=== PATIENT | male | born 1940 | race Caucasian/White ===

== ENCOUNTER 2016-11-27 15:44 | Outpatient (CLI) | payer MEDICARE, OTHER | END 2016-11-27 15:45 | disposition home or self-care (01) | LOC: LAB 15:44 | PROVIDERS: ATTEND Podiatrist | DX: L03.031 Cellulitis of right toe (principal) | CPT/HCPCS: 87070; 87205 ==

== ENCOUNTER 2017-04-30 14:01 | Emergency (ER) | payer MEDICARE, OTHER ==
[2017-04-30 14:51] VITALS: BP 144/86
[2017-04-30] MEDS ORDERED: HYDROcod/ACETAM 5/325 MG TABLET PO STA (15:26)
--- NOTE | 2017-04-30 15:27 | ED Physician Documentation ---
History of Present Illness - Stated complaint Stated Complaint: UNABLE TO WALK - Chief complaint Chief Complaint: General - History obtained from History obtained from: Patient, Family - History of Present Illness Timing: How many days ago (several) Pain level max: 8 Pain level now: 4 Improved by: rest Worsened by: walking - Additonal information Additional information: Patient is a 76-year-old male who has a history of a stroke as well as a chronic right lower extremity DVT. He is on Xarelto for this. Also has a Sofya filter in place. Over the past several days has developed worsening right lower extremity pain especially with walking. Pain is in the hip and the right thigh. No fall. Has not been taken anything for the pain. Review of Systems Ten Systems: 10 systems reviewed and negative Constitutional: denies: Fever, Chills Ears: denies: Ear pain Nose: denies: Rhinorrhea / runny nose, Congestion Throat: denies: Sore throat Cardiac: denies: Chest pain / pressure Respiratory: denies: Cough GI: denies: Abdominal Pain, Nausea, Vomiting, Diarrhea Skin: denies: Rash Musculoskeletal: denies: Neck pain, Back pain Neurologic: denies: Headache PD PAST MEDICAL HISTORY - Past Medical History Past Medical History: Yes Cardiovascular: Deep vein thrombosis Neuro: CVA, TIA Endocrine/Autoimmune: None : Incontinence Musculoskeletal: Hemiplegia Derm: None - Past Surgical History Past Surgical History: No - Present Medications Home Medications: Ambulatory Orders Medication Instructions Recorded Confirmed Aspirin [Negrita Chewable Aspirin] 81 mg PO DAILY 02/05/15 02/14/17 Atorvastatin [Lipitor] 20 mg PO DAILY 02/05/15 02/14/17 Docusate Sodium 100Mg Capsule 200 mg PO BID 02/05/15 02/14/17 [Colace] Omeprazole 20 mg PO DAILY 02/05/15 02/14/17 Polyethylene Glycol 3350 [Miralax] 1 packet PO Q2D 02/05/15 02/14/17 Senna [Senokot] 8.6 mg PO BID 02/05/15 02/14/17 Tamsulosin [Flomax] 0.4 mg PO DAILY 02/05/15 02/14/17 Metoprolol Tartrate 25 mg PO DAILY 03/10/15 02/14/17 levETIRAcetam [Levetiracetam] 1,000 mg PO BID 03/10/15 02/14/17 Rivaroxaban [Xarelto] 20 mg PO DAILY 11/03/15 02/14/17 Hydrocodone/Acetaminophen 1 - 2 each PO Q6H PRN #14 tablet 04/30/17 [Hydrocodon-Acetaminophen 5-325] - Allergies Allergies/Adverse Reactions: Allergies Allergy/AdvReac Type Severity Reaction Status Date / Time No Known Drug Allergies Allergy Verified 04/30/17 14:51 - Social History Does the pt smoke?: No Smoking Status: Never smoker Does the pt drink ETOH?: No Does the pt have substance abuse?: No PD ED PE NORMAL - Vitals Vital signs reviewed: Yes - General General: No acute distress, Other (alert) - HEENT HEENT: Moist mucous membranes - Neck Neck: Supple, no meningeal sign - Cardiac Cardiac: RRR, Strong equal pulses - Respiratory Respiratory: No respiratory distress, Clear bilaterally - Abdomen Abdomen: Soft, Non tender, Non distended - Back Back: No spinal TTP - Derm Derm: Warm and dry - Extremities Extremities: Other (R sided paralysis) - Neuro Neuro: Other (alert, word salad) - Psych Psych: Normal mood, Normal affect Results - Vitals Vitals: Vital Signs - 24 hr 04/30/17 04/30/17 14:47 17:44 Temperature 36.7 C Heart Rate 62 60 Respiratory 18 18 Rate Blood Pressure 144/86 H 144/86 H O2 Saturation 95 Oxygen O2 Source Room air - Labs Labs: Laboratory Tests 04/30/17 04/30/17 15:14 15:14 WBC 7.1 RBC 4.65 L Hgb 15.2 Hct 44.2 MCV 95.1 H MCH 32.7 H MCHC 34.4 RDW 13.2 Plt Count 202 MPV 9.5 Neut # 4.9 Lymph # 1.4 L [place] # 0.6 Eos # 0.1 Baso # 0.1 Absolute Nucleated RBC 0.00 Nucleated RBC % 0.0 Sodium 137 Potassium 4.2 Chloride 99 L Carbon Dioxide 24 Anion Gap 14.0 H BUN 12 Creatinine 0.7 Estimated GFR (MDRD) 110 Glucose 105 H Calcium 9.3 - Rads (name of study) RLE US Radiology: Prelim report reviewed, EMP read contemporaneously, See rad report ( Persistent nonocclusive thrombus, common femoral vein through popliteal vein, compatible with chronic deep venous thrombosis. ) PD MEDICAL DECISION MAKING - ED course Complexity details: reviewed results, re-evaluated patient, considered differential, d/w patient, d/w family ED course: Patient is a 76-year-old male who presents to the emergency department with right hip pain. Has a history of a chronic right DVT, no changes on ultrasound. Pain greatly improved with Vicodin here. Will place him a small amount of pain medication for home. Ambulating well. is comfortable taking him home. Patient and family counseled regarding signs and symptoms for which I believe and urgent re-evaluation would be necessary. Patient with good understanding of and agreement to plan and is comfortable going home at this time This document was made in part using voice recognition software. While efforts are made to proofread this document, sound alike and grammatical errors may occur. Departure - Departure Disposition: 01 Home, Self Care Clinical Impression: Hip pain, right Condition: Good Instructions: ED Strain Muscle Ext Follow-Up: Blair Hernandez MD [Primary Care Provider] - Within 1 week Prescriptions: Hydrocodone/Acetaminophen [Hydrocodon-Acetaminophen 5-325] 1 - 2 each PO Q6H PRN #14 tablet PRN Reason: pain Comments: Return if you worsen. This should improve over the next few days. Do not drink alcohol or drive while on narcotic pain medicine. Note that many narcotic pain relievers also contain tylenol/acetaminophen. Please ensure that your total dose of acetaminophen from all sources does not exceed 3 grams (3000mg) per day. You may constipated on this medication, take a stool softener such as "Colace" twice a day while you are on it. Also recommend a dlsz-kvv-yeuqofy laxative such as senna or MiraLAX any day that you do not have a bowel movement. If you received narcotic pain medication in the emergency department, do not drive or operate machinery for the next 24 hours. Discharge Date/Time: 04/30/17 17:45
[2017-04-30 15:36] LABS: BASOPHILS # (AUTO) 0.1 10^3/uL (0.0-0.1); BASOPHILS % (AUTO) 0.7 %; EOSINOPHILS # (AUTO) 0.1 10^3/uL (0.0-0.7); EOSINOPHILS % (AUTO) 1.3 %; HGB - HEMOGLOBIN 15.2 g/dL (14.0-18.0); LYMPHOCYTES # (AUTO) 1.4 10^3/uL (1.5-3.5); MEAN CORPUSCULAR HEMOGLOBIN 32.7 pg (27.0-31.0); MEAN CORPUSCULAR HGB CONC 34.4 g/dL (32.0-36.0); MEAN CORPUSCULAR VOLUME 95.1 fL (80.0-94.0); MEAN PLATELET VOLUME 9.5 fL (7.4-11.4); MONOCYTES # (AUTO) 0.6 10^3/uL (0.0-1.0); NEUTROPHILS # (AUTO) 4.9 10^3/uL (1.5-6.6); PLT - PLATELET COUNT 202 10^3/uL (130-450); RED BLOOD COUNT 4.65 10^6/uL (4.70-6.10); RED CELL DISTRIBUTION WIDTH 13.2 % (12.0-15.0); WHITE BLOOD COUNT 7.1 x10^3/uL (4.8-10.8)
[2017-04-30 15:38] LABS: CALCIUM 9.3 mg/dL (8.5-10.3); CREATININE 0.7 mg/dL (0.6-1.2)
--- NOTE | 2017-04-30 16:39 | Ultrasound Report ---
EXAM: RIGHT LOWER EXTREMITY VENOUS ULTRASOUND EXAM DATE: 04/30/2017 04:21 PM. CLINICAL HISTORY: Right lower extremity pain. History of chronic DVT. COMPARISON: 03/29/2017. TECHNIQUE: Real-time sonographic vascular imaging was performed by the car parker through the lower extremity utilizing both color-flow and Doppler spectral analysis. Multiple chemical sales representative static jemma ges were saved for review. FINDINGS: Common Femoral Vein (CFV): Nonocclusive thrombus. CFV-GSV Junction: Nonocclusive thrombus. Profunda Femoral Vein (PFV): Normal. Femoral Vein (FV) Prox: Nonocclusive thrombus. Femoral Vein (FV) Mid: Nonocclusive thrombus. Femoral Vein (FV) Dist: Nonocclusive thrombus. Popliteal Vein: Nonocclusive thrombus. Posterior Tibial Veins: Normal. Peroneal Veins: Nonvisualized. IMPRESSION: Persistent nonocclusive thrombus, common femoral vein through popliteal vein, compatible with chronic deep venous thrombosis. [facility] Referring Provider Line: [phone] SITE ID: [id number]
--- NOTE | 2017-04-30 16:39 | Ultrasound Preliminary Report ---
Exam: US DUPLEX EXT VEINS RIGHT IMPRESSION: Persistent nonocclusive thrombus, common femoral vein through popliteal vein, compatible with chronic deep venous thrombosis. [facility] SITE ID: [id number]
== END 2017-04-30 17:45 | disposition home or self-care (01) ==
LOC: ED 14:01
DX: M25.551 Pain in right hip (principal); M79.651 Pain in right thigh; I82.511 Chronic embolism and thrombosis of right femoral vein; I82.531 Chronic embolism and thrombosis of right popliteal vein; Z79.01 Long term (current) use of anticoagulants; I69.951 Hemiplegia and hemiparesis following unspecified cerebrovascular disease affecting right dominant side; Z79.82 Long term (current) use of aspirin
CPT/HCPCS: 36415; 80048; 85025; 93971; 99283; A9270

== ENCOUNTER 2017-08-17 10:46 | Outpatient (CLI) | payer MEDICARE, OTHER ==
[2017-08-17 11:08] LABS: BASOPHILS # (AUTO) 0.1 10^3/uL (0.0-0.1); EOSINOPHILS # (AUTO) 0.1 10^3/uL (0.0-0.7); EOSINOPHILS % (AUTO) 1.5 %; HGB - HEMOGLOBIN 14.5 g/dL (14.0-18.0); LYMPHOCYTES # (AUTO) 1.5 10^3/uL (1.5-3.5); LYMPHOCYTES % (AUTO) 25.3 %; MEAN CORPUSCULAR HEMOGLOBIN 32.4 pg (27.0-31.0); MEAN CORPUSCULAR HGB CONC 33.8 g/dL (32.0-36.0); MEAN CORPUSCULAR VOLUME 95.8 fL (80.0-94.0); MEAN PLATELET VOLUME 9.5 fL (7.4-11.4); MONOCYTES # (AUTO) 0.6 10^3/uL (0.0-1.0); MONOCYTES % (AUTO) 9.9 %; NEUTROPHILS # (AUTO) 3.6 10^3/uL (1.5-6.6); NEUTROPHILS % (AUTO) 62.3 %; PLT - PLATELET COUNT 187 10^3/uL (130-450); RED BLOOD COUNT 4.47 10^6/uL (4.70-6.10); RED CELL DISTRIBUTION WIDTH 13.8 % (12.0-15.0); WHITE BLOOD COUNT 5.8 x10^3/uL (4.8-10.8)
[2017-08-17 11:33] LABS: ALBUMIN 4.2 g/dL (3.2-5.5); ALBUMIN/GLOBULIN RATIO 1.4 (1.0-2.2); ALKALINE PHOSPHATASE 53 IU/L (42-121); ALT ALANINE AMINOTRANSFERASE 35 IU/L (10-60); AST ASPARTATE AMINOTRANSFERASE 26 IU/L (10-42); BILIRUBIN,TOTAL 0.5 mg/dL (0.2-1.0); BUN - BLOOD UREA NITROGEN 15 mg/dL (6-20); CARBON DIOXIDE - CO2 26 mmol/L (21-32); CHLORIDE 101 mmol/L (101-111); CHOL/HDL RATIO 2.9 (<5.0); CHOLESTEROL 169 mg/dL; CREATININE 0.7 mg/dL (0.6-1.2); GFR - MDRD 110 (>89); GLUCOSE 117 mg/dL (70-100); HDL CHOLESTEROL 58 mg/dL; LDL CHOLESTEROL,CALCULATED 92 mg/dL; LDL/HDL RATIO 1.6 (<3.6); SODIUM 136 mmol/L (135-145); TOTAL PROTEIN 7.3 g/dL (6.7-8.2); VLDL CHOLESTEROL 19 mg/dL
== END 2017-08-17 10:47 | disposition home or self-care (01) ==
LOC: LAB 10:46
PROVIDERS: ATTEND Internal Medicine
DX: I10 Essential (primary) hypertension (principal); E78.5 Hyperlipidemia, unspecified; G40.909 Epilepsy, unspecified, not intractable, without status epilepticus
CPT/HCPCS: 36415; 80053; 80061; 80177; 83721; 85025

== ENCOUNTER 2017-08-27 08:00 | Outpatient (CLI) | payer MEDICARE, OTHER | END 2017-08-27 08:01 | disposition home or self-care (01) | LOC: LAB.R 08:00 | PROVIDERS: ATTEND Podiatrist | DX: L03.031 Cellulitis of right toe (principal) | CPT/HCPCS: 87070; 87205 ==

== ENCOUNTER 2017-10-19 10:49 | Outpatient (CLI) | payer MEDICARE, OTHER ==
[2017-10-19] MEDS ORDERED: IOPAMIDOL-300 100 ML VIAL IVP ONE ×3 (10:50→13:13)
[2017-10-19 11:22] LABS: CREATININE 0.8 mg/dL (0.6-1.2)
[2017-10-19] MEDS ORDERED: IOPAMIDOL-300 100 ML VIAL ONE (12:57)
--- NOTE | 2017-10-21 13:43 | CT Report ---
Procedure Date: 10/19/2017 Accession Number: [id number] / [id number] Procedure: CT - Chest Angio (PE) CPT Code: FULL RESULT: EXAM: Chest Angio (PE) DATE: 10/19/2017 1:11 PM CLINICAL HISTORY: CHRONIC SOB COMPARISON: None. TECHNIQUE: Routine helical imaging was performed through the chest in the pulmonary arterial phase. IV Contrast: 80 mL Isovue 300 Reconstructions: Coronal and sagittal 3-D MIP reconstructions. Sagittal and coronal. In accordance with CT protocol optimization, one or more of the following dose reduction techniques were utilized for this exam: automated exposure control, adjustment of mA and/or KV based on patient size, or use of iterative reconstructive technique. FINDINGS: Pulmonary Arteries: Diagnostic quality: Adequate/suboptimal/nondiagnostic through the segmental arteries. No evidence for acute or chronic pulmonary emboli. RV/LV is within normal limits. There is no interventricular septal bowing. There is no reflux of contrast material in the IVC. Lungs/Pleura: Minimal atelectasis. No pulmonary nodule or mass lesion. No effusion or pneumothorax. Mediastinum: Normal. No cardiac enlargement or adenopathy. No aortic dissection or aneurysm. Thoracic Aorta: Unremarkable. Upper Abdomen: Incidental hepatic cyst. Normal adrenal glands. Other: None. IMPRESSION: No evidence of pulmonary embolus. Minimal atelectasis. [facility]
== END 2017-10-19 10:50 | disposition home or self-care (01) ==
LOC: LAB 10:49 → DI 10:50
PROVIDERS: ATTEND Internal Medicine
DX: R06.02 Shortness of breath (principal); J98.11 Atelectasis; I51.7 Cardiomegaly; I51.9 Heart disease, unspecified
CPT/HCPCS: 36415; 71275; 80048; 93306; Q9967

== ENCOUNTER 2017-10-19 11:20 | Outpatient (CLI) | payer MEDICARE, OTHER | END 2017-10-19 11:21 | disposition home or self-care (01) | LOC: DI 11:20 | PROVIDERS: ATTEND Internal Medicine Cardiovascular Disease | DX: R06.02 Shortness of breath (principal); I51.7 Cardiomegaly; I51.9 Heart disease, unspecified | CPT/HCPCS: 93306 ==

== ENCOUNTER 2020-09-15 17:36 | Outpatient (CLI) | payer MEDICARE, OTHER | END 2020-09-15 17:37 | disposition EMS.NT | LOC: EMS 17:36 | DX: I10 Essential (primary) hypertension (principal) ==

== ENCOUNTER 2021-07-12 10:44 | Outpatient (CLI) | payer MEDICARE, OTHER | END 2021-07-12 10:45 | disposition critical access hospital (66) | LOC: EMS 10:44 | DX: G89.29 Other chronic pain (principal) | CPT/HCPCS: A0425; A0429 ==

== ENCOUNTER 2021-07-12 11:07 | Emergency (ER) | payer MEDICARE, OTHER ==
--- NOTE | 2021-07-12 11:56 | ED Physician Documentation ---
PD HPI URI - Stated complaint Stated Complaint: BODY PX - Chief complaint Chief Complaint: General - History obtained from History obtained from: Patient, Family () - History of Present Illness Timing - onset: How many weeks ago (2) Timing duration: Weeks (2) Timing details: Gradual onset, Still present (The patient has had increasing muscle aches and weakness generally but affecting his good side on the left to the point where he is unable to lift himself or transfer as usual.) Associated symptoms: No: Fever, Chills, Dry cough, Chest pain, Dyspnea, NVD Contributing factors: No: Sick contact, Immunocompromised Similar symptoms before: Other (Patient with prior stroke with right-sided deficit years ago. He is typically able to transfer with some mild assistance from his . Unable to do so the last 1 to 2 weeks due to muscle aches and weakness.) Recently seen: Clinic (The patient was seen by his primary care with diet prescriptions sertraline 2 weeks ago for muscle spasms and pains. Had Tylenol with codeine added a couple of days ago without any improvement in aches. Weakness is worsening.) Review of Systems Constitutional: reports: Myalgias (for couple of weeks, worsening, generalized. ), Fatigue. denies: Fever, Chills Nose: denies: Rhinorrhea / runny nose, Congestion Throat: denies: Sore throat Respiratory: denies: Cough GI: denies: Nausea, Vomiting, Diarrhea, Bloody / black stool : denies: Dysuria Skin: denies: Lesions ( denies pressure sores) Musculoskeletal: denies: Neck pain, Back pain, Extremity swelling Neurologic: reports: Generalized weakness (new progressive left side weakness/muscle pains over past couple of weeks.), Focal weakness (right side s/p CVA years ago.). denies: Confused, Altered mental status, Headache Psychiatric: denies: Depressed Endocrine: denies: Weight loss Immunocompromised: denies: Immunocompromised PD PAST MEDICAL HISTORY - Past Medical History Cardiovascular: Deep vein thrombosis Neuro: CVA Endocrine/Autoimmune: None : Incontinence Musculoskeletal: Hemiplegia Derm: None - Past Surgical History Past Surgical History: No - Present Medications Home Medications: Ambulatory Orders Medication Instructions Recorded Confirmed Aspirin [Negrita Chewable Aspirin] 81 mg PO DAILY 02/05/15 07/12/21 Atorvastatin [Lipitor] 20 mg PO DAILY 02/05/15 07/12/21 Docusate Sodium 100Mg Capsule 200 mg PO BID PRN 02/05/15 07/12/21 [Colace] Senna [Senokot] 8.6 mg PO BID PRN 02/05/15 07/12/21 Tamsulosin [Flomax] 0.4 mg PO DAILY PM 02/05/15 07/12/21 Metoprolol Tartrate 25 mg PO DAILY 03/10/15 07/12/21 levETIRAcetam [Levetiracetam] 1,000 mg PO BID 03/10/15 07/12/21 Rivaroxaban [Xarelto] 20 mg PO DAILY 11/03/15 07/12/21 Acetaminophen/Cod 300/30 [Tylenol 1 each PO Q6HR PRN 07/12/21 07/12/21 #3] Sertraline [Zoloft] 50 mg PO DAILY 07/12/21 07/12/21 - Allergies Allergies/Adverse Reactions: Allergies Allergy/AdvReac Type Severity Reaction Status Date / Time No Known Drug Allergies Allergy Verified 07/12/21 11:17 - Social History Does the pt smoke?: No Smoking Status: Never smoker Does the pt drink ETOH?: No Does the pt have substance abuse?: No PD ED PE NORMAL - Vitals Vital signs reviewed: Yes - General General: Alert and oriented X 3, Well developed/nourished - HEENT HEENT: Atraumatic - Neck Neck: Supple, no meningeal sign, No adenopathy - Cardiac Cardiac: RRR, No murmur - Respiratory Respiratory: Clear bilaterally - Abdomen Abdomen: Normal bowel sounds, Soft, No organomegaly, Other (some fullness and general tenderness mid abdomen without guarding nor percussion tenderness. Bowel sounds decreased. ) - Back Back: No CVA TTP - Derm Derm: Normal color, Warm and dry - Neuro Neuro: Alert and oriented X 3, Other (right arm and leg with dense paresis c/w prior CVA. Left arm and leg with moderate weakness but normal sensation. ). No: Normal speech (mild dysarthria) Eye Opening: Spontaneous Motor: Obeys Commands Verbal: Oriented GCS Score: 15 Results - Vitals Vitals: Vital Signs - 24 hr 07/12/21 07/12/21 07/12/21 11:10 11:54 13:59 Temperature 37.2 C Heart Rate 69 63 72 Respiratory 18 16 14 Rate Blood Pressure 139/89 H 137/86 H 135/81 H O2 Saturation 95 94 93 07/12/21 07/12/21 07/12/21 15:00 17:00 19:00 Temperature Heart Rate 69 63 67 Respiratory 15 20 13 Rate Blood Pressure 140/81 H 143/96 H 101/63 O2 Saturation 94 94 95 07/12/21 21:00 Temperature Heart Rate 74 Respiratory 23 Rate Blood Pressure 125/77 O2 Saturation 96 Oxygen O2 Source Room air - Labs Labs: Laboratory Tests 07/12/21 07/12/21 07/12/21 12:40 12:40 12:40 WBC 8.8 RBC 3.92 L Hgb 12.9 L Hct 38.4 L MCV 98.0 H MCH 32.9 H MCHC 33.6 RDW 13.8 Plt Count 320 MPV 11.6 H Neut # (Auto) 6.4 Lymph # (Auto) 1.4 L [place] # (Auto) 0.8 Eos # (Auto) 0.1 Baso # (Auto) 0.1 Absolute Nucleated RBC 0.00 Nucleated RBC % 0.0 ESR 31 H Sodium 134 L Potassium 4.1 Chloride 96 L Carbon Dioxide 29 Anion Gap 9.0 BUN 10 Creatinine 0.7 Estimated GFR (MDRD) 109 Glucose 112 H Calcium 9.1 Magnesium 1.9 Total Bilirubin 0.5 AST 15 ALT 18 Alkaline Phosphatase 91 Total Creatine Kinase 61 Total Protein 6.9 Albumin 3.7 Globulin 3.2 Albumin/Globulin Ratio 1.2 Lipase 30 Urine Color Urine Clarity Urine pH Ur Specific [place] Urine Protein Urine Glucose (UA) Urine Ketones Urine Occult Blood Urine Nitrite Urine Bilirubin Urine Urobilinogen Ur Leukocyte Esterase Ur Microscopic Review Urine Culture Comments Nasal Adenovirus (PCR) Nasal B. parapertussis DNA (PCR) Nasal Coronavir 229E PCR Nasal Coronavir HKU1 PCR Nasal Coronavir NL63 PCR Nasal Coronavir OC43 PCR Nasal Enterovir/Rhinovir PCR Nasal Influenza B PCR Nasal Influenza A PCR Nasal Parainfluen 1 PCR Nasal Parainfluen 2 PCR Nasal Parainfluen 3 PCR Nasal Parainfluen 4 PCR Nasal RSV (PCR) Nasal B.pertussis DNA PCR Nasal C.pneumoniae (PCR) [place] Human Metapneumo PCR Nasal M.pneumoniae (PCR) Nasal SARS-CoV-2 (PCR) 07/12/21 07/12/21 13:40 16:50 WBC RBC Hgb Hct MCV MCH MCHC RDW Plt Count MPV Neut # (Auto) Lymph # (Auto) [place] # (Auto) Eos # (Auto) Baso # (Auto) Absolute Nucleated RBC Nucleated RBC % ESR Sodium Potassium Chloride Carbon Dioxide Anion Gap BUN Creatinine Estimated GFR (MDRD) Glucose Calcium Magnesium Total Bilirubin AST ALT Alkaline Phosphatase Total Creatine Kinase Total Protein Albumin Globulin Albumin/Globulin Ratio Lipase Urine Color YELLOW Urine Clarity CLEAR Urine pH 6.0 Ur Specific [place] 1.015 Urine Protein NEGATIVE Urine Glucose (UA) NEGATIVE Urine Ketones 40 H Urine Occult Blood NEGATIVE Urine Nitrite NEGATIVE Urine Bilirubin NEGATIVE Urine Urobilinogen 0.2 (NORMAL) Ur Leukocyte Esterase NEGATIVE Ur Microscopic Review NOT INDICATED Urine Culture Comments NOT INDICATED Nasal Adenovirus (PCR) NOT DETECTED Nasal B. parapertussis DNA (PCR) NOT DETECTED Nasal Coronavir 229E PCR NOT DETECTED Nasal Coronavir HKU1 PCR NOT DETECTED Nasal Coronavir NL63 PCR NOT DETECTED Nasal Coronavir OC43 PCR NOT DETECTED Nasal Enterovir/Rhinovir PCR NOT DETECTED Nasal Influenza B PCR NOT DETECTED Nasal Influenza A PCR NOT DETECTED Nasal Parainfluen 1 PCR NOT DETECTED Nasal Parainfluen 2 PCR NOT DETECTED Nasal Parainfluen 3 PCR NOT DETECTED Nasal Parainfluen 4 PCR NOT DETECTED Nasal RSV (PCR) NOT DETECTED Nasal B.pertussis DNA PCR NOT DETECTED Nasal C.pneumoniae (PCR) NOT DETECTED [place] Human Metapneumo PCR NOT DETECTED Nasal M.pneumoniae (PCR) NOT DETECTED Nasal SARS-CoV-2 (PCR) NOT DETECTED - Rads (name of study) abd/pelvic CT Radiology: Prelim report reviewed (no acute process), See rad report PD MEDICAL DECISION MAKING - ED course Complexity details: reviewed results (No obvious electrolyte problem. No myositis with normal CK and sed rate. However still consider possible myalgias from statin versus just deconditioning. Unable to care for himself at home. Will have social work look at care facility placement or respite.), re-evaluated patient (he seeme d a bit stronger, per , with improved pain med. However, still unable to stand/lift himself up to sitting with left arm. ), considered differential (Patient with muscle aches and general weakness which is demonstrated mainly on his nonparetic left side to the point of unable to lift or transfer himself as previous. Can check for signs of infection. Consider medication effect such as from statin medication. Will check electrolytes as well.), d/w patient, d/w end user consultant (Social Work working to get patient to assisted living or SNF for at least short stay to see if can get conditioning and also improved meds/symptoms. ) ED course: I wrote order for usual home meds, excluding the new sertraline and also the prior statin (in case of myalgic/pain side effect of the statin).
[2021-07-12] MEDS ORDERED: SODIUM CHLORIDE 0.9% 1,000 ML IV STA (12:27)
[2021-07-12] MEDS ORDERED: KETOROLAC 15 MG/ML VIAL IVP STA (12:27)
[2021-07-12] MEDS ORDERED: IOVERSOL 320 100 ML VIAL IVP ONE ×2 (12:46→16:05)
[2021-07-12 12:47] LABS: BASOPHILS # (AUTO) 0.1 10^3/uL (0.0-0.1); BASOPHILS % (AUTO) 0.9 %; EOSINOPHILS # (AUTO) 0.1 10^3/uL (0.0-0.7); EOSINOPHILS % (AUTO) 0.9 %; HCT - HEMATOCRIT 38.4 % (42.0-52.0); HGB - HEMOGLOBIN 12.9 g/dL (14.0-18.0); LYMPHOCYTES # (AUTO) 1.4 10^3/uL (1.5-3.5); LYMPHOCYTES % (AUTO) 15.5 %; MEAN CORPUSCULAR HEMOGLOBIN 32.9 pg (27.0-31.0); MEAN CORPUSCULAR HGB CONC 33.6 g/dL (32.0-36.0); MEAN PLATELET VOLUME 11.6 fL (7.4-11.4); MONOCYTES # (AUTO) 0.8 10^3/uL (0.0-1.0); MONOCYTES % (AUTO) 9.4 %; NEUTROPHILS # (AUTO) 6.4 10^3/uL (1.5-6.6); NEUTROPHILS % (AUTO) 72.6 %; PLT - PLATELET COUNT 320 10^3/uL (130-450); RED BLOOD COUNT 3.92 10^6/uL (4.70-6.10); RED CELL DISTRIBUTION WIDTH 13.8 % (12.0-15.0); WHITE BLOOD COUNT 8.8 x10^3/uL (4.8-10.8)
[2021-07-12 13:00] LABS: ALBUMIN 3.7 g/dL (3.2-5.5); ALBUMIN/GLOBULIN RATIO 1.2 (1.0-2.2); BILIRUBIN,TOTAL 0.5 mg/dL (0.2-1.0); CALCIUM 9.1 mg/dL (8.5-10.3); CREATININE 0.7 mg/dL (0.6-1.2); MAGNESIUM 1.9 mg/dL (1.7-2.8); POTASSIUM 4.1 mmol/L (3.5-5.0); TOTAL PROTEIN 6.9 g/dL (6.7-8.2)
[2021-07-12 14:13] LABS: BILIRUBIN,URINE NEGATIVE (NEGATIVE); GLUCOSE, URINE (UA) NEGATIVE (NEGATIVE); KETONES,URINE (UA) 40 mg/dL (NEGATIVE); LEUKOCYTE ESTERASE, URINE NEGATIVE (NEGATIVE); NITRITE,URINE NEGATIVE (NEGATIVE); OCCULT BLOOD,URINE NEGATIVE (NEGATIVE); PROTEIN,URINE NEGATIVE (NEGATIVE); UROBILINOGEN,URINE 0.2 (NORMAL) E.U./dL (NORMAL)
[2021-07-12 14:14] LABS: CLARITY,URINE CLEAR (CLEAR)
--- NOTE | 2021-07-12 14:14 | CT Report ---
PROCEDURE: Abdomen/Pelvis W INDICATIONS: abd tenderness, firmness; general weakness CONTRAST: IV CONTRAST: Optiray 320 ml: 100 PO CONTRAST: *NO PO CONTRAST TECHNIQUE: After the administration of IV contrast, 5 mm thick sections acquired from the diaphragms to the symp hysis. 5 mm thick coronal and sagittal reformats were acquired. For radiation dose reduction, the f ollowing was used: automated exposure control, adjustment of mA and/or kV according to patient size. COMPARISON: CT angiogram of chest dated 10/19/2017.. FINDINGS: Image quality: Excellent. ABDOMEN: Lung bases: Lung bases are clear. Heart size is mildly enlarged, no pericardial effusion. Solid organs: Liver is normal in size. Slightly lobulated hypodensity involving upper portion of lef t hepatic lobe and measures 1.2 x 2.2 cm in size is seen and may represent hepatic cysts unchanged fr om prior study in 2018. Spleen is normal in size and enhancement. Liver and spleen are normal in size and enhancement. Gallbladder normal limits. Biliary system is non dilated. Pancreas enhances norm ally. No adrenal nodules. Kidneys demonstrate normal size and enhancement, without hydronephrosis. Peritoneum and bowel: Bowel loops demonstrate normal wall thickness and caliber. No free fluid or a ir. Fecal stasis throughout the colon is seen. No abscess collection. Nodes and vessels: No retroperitoneal or mesenteric adenopathy by size criteria. Aorta and inferior vena cava are normal in size. IVC filter is noted in place. Mild to moderate atherosclerotic diseas e in abdominal aorta is seen. Miscellaneous: No ventral hernias. PELVIS: Genitourinary: Patient is status post prostatectomy with postsurgical changes in prostate bed. Mild d iffuse bladder wall thickening is seen, no discrete bladder wall mass. Miscellaneous: No inguinal hernias or adenopathy. Bones: No suspicious bony lesions. No vertebral body compression fractures. Degenerative disc dise ase throughout lumbar spine is seen. Osteoarthritic changes are noted throughout the bony pelvis. IMPRESSION: 1. No acute inflammatory process is seen in abdomen or pelvis. No bowel obstruction or abnormal bowel wall thickening. No free fluid of free air. Moderate constipation. 2. No renal stone or hydronephrosis. Mild diffuse bladder wall thickening, no discrete bladder wall m ass. Prior prostatectomy. 3. Stable hepatic cyst. Reviewed by: Edgard Perkins MD on 07/12/2021 2:13 PM PDT Approved by: Edgard Perkins MD on 07/12/2021 2:13 PM PDT Station ID: [id number]
[2021-07-12 18:05] LABS: B. PARAPERTUSSIS- RESP PCR PAN NOT DETECTED; B. PERTUSSIS- RESP PCR PANEL NOT DETECTED; C. PNEUMONIAE- RESP PCR PANEL NOT DETECTED; CORONAVIRUS 229E-RESP PCR NOT DETECTED; CORONAVIRUS HKU1-RESP PCR NOT DETECTED; CORONAVIRUS NL63-RESP PCR NOT DETECTED; CORONAVIRUS OC43-RESP PCR NOT DETECTED; HUMAN METAPNEUMOVIRUS NOT DETECTED; INFLUENZA A- RESP PCR PANEL NOT DETECTED; INFLUENZA B - RESP PCR PANEL NOT DETECTED; M. PNEUMONIAE- RESP PCR PANEL NOT DETECTED; PARAINFLUENZA VIRUS 1 NOT DETECTED; PARAINFLUENZA VIRUS 2 NOT DETECTED; PARAINFLUENZA VIRUS 3 NOT DETECTED; PARAINFLUENZA VIRUS 4 NOT DETECTED; RHINOVIRUS/ENTEROVIRUS NOT DETECTED; RSV- RESP PCR PANEL NOT DETECTED; SARS-CoV-2 -RESP PCR PANEL NOT DETECTED
[2021-07-12] MEDS ORDERED: TAMSULOSIN 0.4 MG CAPSULE PO SCH (21:00)
[2021-07-12] MEDS ORDERED: RIVAROXABAN 15 MG TABLET PO SCH (21:00)
[2021-07-12] MEDS: DOCUSATE SODIUM 100 MG CAPSULE PO SCH (21:08)
[2021-07-12] MEDS: HYDROcod/ACETAM 5/325 MG TABLET PO SCH (21:09)
[2021-07-12] MEDS: levETIRAcetam 250 MG TABLET PO SCH (21:10)
[2021-07-13] MEDS: DOCUSATE SODIUM 100 MG CAPSULE PO SCH (08:24)
[2021-07-13] MEDS: HYDROcod/ACETAM 5/325 MG TABLET PO SCH (08:24)
[2021-07-13] MEDS: levETIRAcetam 250 MG TABLET PO SCH (08:25)
[2021-07-13] MEDS ORDERED: METOPROLOL SUCCINATE 25 MG TABLET PO SCH (09:00)
[2021-07-13] MEDS ORDERED: ASPIRIN EC 81 MG TABLET PO SCH (09:00)
[2021-07-13 11:39] VITALS: BP 142/76
[2021-07-13] MEDS ORDERED: HYDROcod/ACETAM 5/325 MG TABLET PO STA (13:54)
--- NOTE | 2021-07-13 14:36 | ED Physician Documentation ---
ED Addendum - Addendum Addendum: 07/13/21 14:33The patient apparently did not have any problems overnight. He was maintained on his usual home medications with the exception of the purposefully stopping the recent sertraline and his prior atorvastatin. I did talk with Dr. Henrandez, his primary care, who states he is ready and able to right shelter facility orders for the patient as soon as they are faxed to him. Social work states she just now faxed the papers to Dr. Hernandez for them to fill out. [facility] is able to take the patient this afternoon and he will be leaving the ER at approximately 330. I did discuss with Dr. Hernandez my ideas on potentially stopping the atorvastatin as it could be causing some of the muscle weakness and aches. Otherwise not clear on the recent sertraline. I also this told him the hydrocodone seem to work quite well for his pain here without any ill side effects. Dr. Hernandez will write orders as he wishes. Disposition: The patient is discharged from the emergency room in stable condition to shelter facility [facility] Diagnoses: 1. General myalgias and weakness 2. Status post stroke with right hemiparesis
== END 2021-07-13 15:45 | disposition home or self-care (01) ==
LOC: EDUNIT# → ED 11:07
DX: M79.10 Myalgia, unspecified site (principal); R53.1 Weakness; I69.351 Hemiplegia and hemiparesis following cerebral infarction affecting right dominant side; Z20.822 Contact with and (suspected) exposure to COVID-19; Z74.01 Bed confinement status
CPT/HCPCS: 36415; 51701; 74177; 80053; 81003; 82550; 83690; 83735; 85025; 85651; 87631; 96361; 96374; 99284; A9270; Q9967; 0202U; 81001; 87086

== ENCOUNTER 2021-07-13 15:43 | Outpatient (CLI) | payer MEDICARE, OTHER | END 2021-07-13 15:44 | disposition home or self-care (01) | LOC: EMS 15:43 | PROVIDERS: ATTEND Emergency Medicine | DX: I69.351 Hemiplegia and hemiparesis following cerebral infarction affecting right dominant side (principal); Z74.01 Bed confinement status | CPT/HCPCS: A0425; A0428 ==

== ENCOUNTER 2021-07-22 08:00 | Outpatient (CLI) | payer MEDICARE, OTHER ==
[2021-07-22 21:25] LABS: BASOPHILS # (AUTO) 0.1 10^3/uL (0.0-0.1); BASOPHILS % (AUTO) 0.9 %; EOSINOPHILS # (AUTO) 0.3 10^3/uL (0.0-0.7); EOSINOPHILS % (AUTO) 2.7 %; HCT - HEMATOCRIT 40.1 % (42.0-52.0); HGB - HEMOGLOBIN 13.6 g/dL (14.0-18.0); LYMPHOCYTES # (AUTO) 1.8 10^3/uL (1.5-3.5); LYMPHOCYTES % (AUTO) 17.3 %; MEAN CORPUSCULAR HEMOGLOBIN 32.8 pg (27.0-31.0); MEAN CORPUSCULAR HGB CONC 33.9 g/dL (32.0-36.0); MEAN CORPUSCULAR VOLUME 96.6 fL (80.0-94.0); MEAN PLATELET VOLUME 12.5 fL (7.4-11.4); MONOCYTES # (AUTO) 0.9 10^3/uL (0.0-1.0); NEUTROPHILS # (AUTO) 7.2 10^3/uL (1.5-6.6); NEUTROPHILS % (AUTO) 69.2 %; PLT - PLATELET COUNT 362 10^3/uL (130-450); RED BLOOD COUNT 4.15 10^6/uL (4.70-6.10); RED CELL DISTRIBUTION WIDTH 13.2 % (12.0-15.0); WHITE BLOOD COUNT 10.5 x10^3/uL (4.8-10.8)
[2021-07-22 21:36] LABS: ALBUMIN 3.7 g/dL (3.2-5.5); BILIRUBIN,TOTAL 0.9 mg/dL (0.2-1.0); CREATININE 0.8 mg/dL (0.6-1.2); POTASSIUM 3.3 mmol/L (3.5-5.0); TOTAL PROTEIN 7.5 g/dL (6.7-8.2)
[2021-07-22 21:54] LABS: THYROID STIMULATING HORMONE 10.48 uIU/mL (0.34-5.60)
[2021-07-22 21:56] LABS: FREE T4 (FREE THYROXINE) 1.69 ng/dL (0.58-1.64)
== END 2021-07-22 08:01 | disposition home or self-care (01) ==
LOC: LAB.R 08:00
PROVIDERS: ATTEND Hospitalist
DX: E78.5 Hyperlipidemia, unspecified (principal); I69.351 Hemiplegia and hemiparesis following cerebral infarction affecting right dominant side; I10 Essential (primary) hypertension; M62.81 Muscle weakness (generalized)
CPT/HCPCS: 80053; 82607; 84439; 84443; 85025

== ENCOUNTER 2021-09-07 13:20 | Outpatient (CLI) | payer MEDICARE, OTHER | END 2021-09-07 13:21 | disposition home or self-care (01) | LOC: LAB.S 13:20 | PROVIDERS: ATTEND Internal Medicine | DX: E03.9 Hypothyroidism, unspecified (principal) | CPT/HCPCS: 36415; 84443 ==

== ENCOUNTER 2023-09-01 16:47 | Outpatient (CLI) | payer MEDICARE, OTHER | END 2023-09-01 23:59 | disposition EMS.NT | LOC: EMS 16:47 | DX: Z03.89 Encounter for observation for other suspected diseases and conditions ruled out (principal) ==

== ENCOUNTER 2023-12-26 12:46 | Outpatient (CLI) | payer MEDICARE, OTHER ==
[2023-12-26 20:13] LABS: BASOPHILS # (AUTO) 0.1 10^3/uL (0.0-0.1); BASOPHILS % (AUTO) 1.4 %; EOSINOPHILS # (AUTO) 0.1 10^3/uL (0.0-0.7); EOSINOPHILS % (AUTO) 2.6 %; HCT - HEMATOCRIT 36.4 % (42.0-52.0); LYMPHOCYTES # (AUTO) 1.2 10^3/uL (1.5-3.5); MEAN CORPUSCULAR HEMOGLOBIN 34.5 pg (27.0-31.0); MEAN CORPUSCULAR VOLUME 104.6 fL (80.0-94.0); MONOCYTES # (AUTO) 0.3 10^3/uL (0.0-1.0); MONOCYTES % (AUTO) 7.2 %; NEUTROPHILS # (AUTO) 2.6 10^3/uL (1.5-6.6); NEUTROPHILS % (AUTO) 61.1 %; PLT - PLATELET COUNT 210 10^3/uL (130-450); RED BLOOD COUNT 3.48 10^6/uL (4.70-6.10); RED CELL DISTRIBUTION WIDTH 16.2 % (12.0-15.0); WHITE BLOOD COUNT 4.3 x10^3/uL (4.8-10.8)
[2023-12-26 20:41] LABS: ALBUMIN/GLOBULIN RATIO 1.5 (1.0-2.2); BILIRUBIN,TOTAL 0.5 mg/dL (0.2-1.0); CREATININE 0.9 mg/dL (0.6-1.3); POTASSIUM 4.3 mmol/L (3.5-4.5); TOTAL PROTEIN 6.7 g/dL (6.4-8.9)
[2023-12-26 20:56] LABS: THYROID STIMULATING HORMONE 2.12 uIU/mL (0.34-5.60)
== END 2023-12-26 12:47 | disposition home or self-care (01) ==
LOC: LAB.S 12:46
PROVIDERS: ATTEND Internal Medicine
DX: I10 Essential (primary) hypertension (principal); E03.9 Hypothyroidism, unspecified; G40.909 Epilepsy, unspecified, not intractable, without status epilepticus
CPT/HCPCS: 36415; 80053; 80177; 84443; 85025

== ENCOUNTER 2024-05-25 13:00 | Inpatient (IN) ==
[2024-05-25 13:42] LABS: INR 2.3 (0.8-1.2); PT - PROTHROMBIN TIME 24.2 secs (9.9-12.6)
[2024-05-25 13:47] LABS: ALBUMIN 3.7 g/dL (3.2-5.5); ALBUMIN/GLOBULIN RATIO 1.1 (1.0-2.2); BILIRUBIN,TOTAL 0.7 mg/dL (0.2-1.0); CALCIUM 8.9 mg/dL (8.5-10.3); CREATININE 1.4 mg/dL (0.6-1.3); POTASSIUM 4.9 mmol/L (3.5-4.5)
[2024-05-25 13:56] LABS: BASOPHILS % (AUTO) 0.1 %; EOSINOPHILS % (AUTO) 0.5 %; LYMPHOCYTES % (AUTO) 15.4 %; MEAN CORPUSCULAR HEMOGLOBIN 35.3 pg (27.0-31.0); MEAN CORPUSCULAR HGB CONC 30.5 g/dL (32.0-36.0); MEAN CORPUSCULAR VOLUME 115.7 fL (80.0-94.0); MEAN PLATELET VOLUME 14.1 fL (7.4-11.4); MONOCYTES % (AUTO) 5.1 %; NEUTROPHILS % (AUTO) 77.3 %; PLT - PLATELET COUNT 103 10^3/uL (130-450); RED BLOOD COUNT 1.02 10^6/uL (4.70-6.10); RED CELL DISTRIBUTION WIDTH 23.9 % (12.0-15.0); WHITE BLOOD COUNT 8.9 x10^3/uL (4.8-10.8)
[2024-05-25 13:58] LABS: HCT - HEMATOCRIT 11.8 % (42.0-52.0); HGB - HEMOGLOBIN 3.6 g/dL (14.0-18.0)
[2024-05-25 13:59] LABS: ABNORMAL LYMPHS % (MANUAL) 0 %
[2024-05-25 14:25] LABS: BAND NEUTROPHILS % (MANUAL) 1 %; BASOPHILS # (MANUAL) 0.1 10^3/uL (0-0.1); BASOPHILS % (MANUAL) 1 %; EOSINOPHILS # (MANUAL) 0.1 10^3/uL (0-0.7); LYMPHOCYTES # (MANUAL) 1.3 10^3/uL (1.5-3.5); LYMPHOCYTES % (MANUAL) 15 %; MONOCYTES # (MANUAL) 0.3 10^3/uL (0.0-1.0); NEUTROPHILS # (MANUAL) 7.1 10^3/uL (1.5-6.6); NUCLEATED RBC (MANUAL) 1 %
--- NOTE | 2024-05-25 14:25 | ED Physician Documentation ---
History of Present Illness Stated complaint Stated Complaint: WEAKNESS Chief complaint Chief Complaint: General History obtained from History obtained from: Family and EMS Additonal information Additional information: Patient comes to the emergency department via EMS for chief complaint of increasing generalized weakness. He was seen here on Sunday which is 2 days ago, and decided once he got here that he did not want any workup done and left without any intervention. The had him brought back today because he has been so weak today that she can even get him out of bed. Patient has a history of a stroke with left-sided deficits and chronic aphasia and at baseline answers yes or no questions. He can generally walk, but requires the use of a walker. The patient has had some blood in the toilet bowl every time he has a bowel movement for the last 2 weeks. He is on Xarelto chronically. The patient denies pain. He does affirm by saying "yes" that he has had blood with defecation. No history of GI bleed or transfusions previously. No other complaints at this time. The states patient has not seemed particularly ill with any specific symptoms other than the generalized weakness. Meds/Allgy Home Medications Ambulatory Orders Medication Instructions Recorded Confirmed aspirin 81 mg chewable tablet 81 mg PO DAILY 02/05/15 07/12/21 (Negrita Chewable Low Dose Aspirin) atorvastatin 10 mg tablet 20 mg PO DAILY 02/05/15 07/12/21 docusate sodium 100 mg capsule 200 mg PO BID PRN Constipation 02/05/15 07/12/21 (Stool Softener) sennosides 8.6 mg tablet (Senna 8.6 mg PO BID PRN Constipation 02/05/15 07/12/21 Lax) tamsulosin 0.4 mg capsule 0.4 mg PO DAILY PM 02/05/15 07/12/21 levetiracetam 1,000 mg tablet 1,000 mg PO BID 03/10/15 07/12/21 metoprolol tartrate 25 mg tablet 25 mg PO DAILY 03/10/15 07/12/21 rivaroxaban 20 mg tablet (Xarelto) 20 mg PO DAILY 11/03/15 07/12/21 acetaminophen 300 mg-codeine 30 mg 1 ea PO Q6HR PRN Pain 07/12/21 07/12/21 tablet sertraline 50 mg tablet 50 mg PO DAILY 07/12/21 07/12/21 Allergies Allergies Allergy/AdvReac Type Severity Reaction Status Date / Time No Known Drug Allergies Allergy Verified 05/25/24 13:07 [facility] Social History Social History Smoking Status: Never smoker Do you dip or chew tobacco?: No Do you vape?: No Patient requests smoking cessation consult: No Initiate information on smoking cessation: No Relationship: Home Mobility Equipment: Walker Do you feel safe in your home environment?: Yes Suffered physical, verbal, emotional, or financial abuse?: No History of Abuse: No ETOH Use: Frequency: Occasional POLST Patient has POLST: Yes Exam Constitutional normal general appearance and no apparent distress HENMT normocephalic, head/scalp atraumatic, external nose normal and oral mucous membranes normal Eyes EOMs intact bilaterally Neck/C-Spine visual inspection normal and supple Respiratory breath sounds equal bilaterally, normal respiratory effort and clear to auscultation bilaterally Cardiovascular normal heart rate noted, regular rhythm noted and no edema Gastrointestinal abdomen normal to inspection, abdomen soft to palpation, nontender to palpation and nondistended Good rectal tone, no gross blood. Some blackish stool residue perianally. Brown stool on the glove with digital rectal exam and no gross blood. Genitourinary no CVA tenderness Extremities normal to inspection Neurology Alert, grossly intact Psychiatry mental status grossly normal Skin Marked pallor Results Vitals Vitals: Vital Signs - 24 hr 05/25/24 13:04 05/25/24 13:07 05/25/24 13:37 Temperature 37.4 C Temperature Source Temporal Artery Scan Pulse Rate 85 96 95 Respiratory Rate 14 16 24 Blood Pressure 123/71 123/71 104/66 O2 Saturation 94 96 O2 Source Room air Pain Intensity 0 05/25/24 14:07 Temperature Temperature Source Pulse Rate 99 Respiratory Rate 24 Blood Pressure 102/55 L O2 Saturation O2 Source Pain Intensity Oxygen O2 Source Room air Labs Labs: Microbiology 05/25/24 14:00 Occult Blood - Final Stool Laboratory Tests 05/25/24 13:20 WBC 8.9 RBC 1.02 L Hgb 3.6 L* Hct 11.8 L* MCV 115.7 H MCH 35.3 H MCHC 30.5 L RDW 23.9 H Plt Count 103 L MPV 14.1 H PT 24.2 H INR 2.3 H Sodium 142 Potassium 4.9 H Chloride 110 Carbon Dioxide 23 Anion Gap 9.0 BUN 43 H Creatinine 1.4 H Estimated GFR (MDRD) 49 L Glucose 121 H Calcium 8.9 Total Bilirubin 0.7 AST 204 H ALT 169 H Alkaline Phosphatase 71 Total Protein 7.0 Albumin 3.7 Globulin 3.3 Albumin/Globulin Ratio 1.1 Lipase 20 Crossmatch IS Only See Detail PD Medical Decision Making ED course Complexity details: reviewed old records, reviewed results, re-evaluated patient, considered differential and d/w patient ED course: The patient was worked up with labs including CBC, ER abdominal panel, and INR. He was found to have A normal white blood cell count, but a hemoglobin of 3.6 and hematocrit of 11.8. His INR was 2.3. Potassium was slightly elevated at 4.9. Creatinine was mildly elevated 1.4 and BUN of 43. His AST and ALT were moderately elevated at 204 and 169. I did speak with the patient and his regarding the findings and they have agreed to blood transfusion. The patient did not on rectal exam have any gross blood or melena, but guaiac has been sent and is pending this time. I spoke with on-call hospitalist, who agreed to admit patient to her service. I also spoke with Dr. White of general surgery who has stated he is happy to come see the patient if medicine would like to consult him. The patient and his are agreeable to the plan of admission. Discharge Plan Discharge Patient Disposition: [facility] DC/Xfer Condition: Critical Clinical Impression: Profound anemia, Acute lower gastrointestinal bleeding, Generalized weakness Prescriptions: No Action sennosides [Senna Lax] 8.6 MG tablet 8.6 mg PO BID PRN (Reason: Constipation) atorvastatin 10 MG tablet 20 mg PO DAILY tamsulosin 0.4 MG capsule 0.4 mg PO DAILY PM docusate sodium [Stool Softener] 100 MG capsule 200 mg PO BID PRN (Reason: Constipation) aspirin [Negrita Chewable Aspirin] 81 MG tablet,chewable 81 mg PO DAILY metoprolol tartrate 25 MG tablet 25 mg PO DAILY levetiracetam 1,000 MG tablet 1,000 mg PO BID rivaroxaban [Xarelto] 20 MG tablet 20 mg PO DAILY Patient Comments: 11/27/16 RF #30 x 11 NS/MD. 11/03/15 New RX. #30 RF x 12. MC/ds acetaminophen-codeine 1 TAB tablet 1 ea PO Q6HR PRN (Reason: Pain) Patient Comments: take 1 tablet by mouth every 6 hours if needed for pain sertraline 50 MG tablet 50 mg PO DAILY Patient Comments: take 1 tablet by mouth every morning Print Language: Divehi Stand Alone Forms: PCP List
[2024-05-25 14:26] LABS: DIFFERENTIAL COMMENT MANUAL DIFFERENTIAL; PLATELET ESTIMATE, MANUAL DECREASED (<130,000) (NORMAL); PLATELET MORPHOLOGY NORMAL APPEARANCE (NORMAL)
--- NOTE | 2024-05-25 15:14 | HISTORY & PHYSICAL EXAMINATION ---
Chief Complaint Chief Complaint Chief Complaint: Confusion History of Present Illness Admitted From Admitted From:: Home with History Obtained From History obtained from: Interview with Exam Limitations: Patient is severely aphasic, only answers yes or no History of Present Illness HPI Comment/Other: 84-year-old male with remote history of stroke with chronic aphasia and left- sided deficits who presented to the hospital with generalized weakness. He originally presented 2 days ago, and then left without intervention. He was weak enough today that his was unable to get him out of bed. His reports that he has been having blood in his stools. He takes Xarelto, last dose the night of 05/23/2024 In the ER, he was noted to have a hemoglobin of 3.6, hematocrit 11.8. General surgery was contacted by ER provider, who recommends general surgery consultation for possible colonoscopy after his Xarelto clears from his system. Hospitalist was contacted for admission for acute blood loss anemia Meds/Allgy Home Medications Ambulatory Orders Medication Instructions Recorded Confirmed aspirin 81 mg chewable tablet 81 mg PO DAILY 02/05/15 07/12/21 (Negrita Chewable Low Dose Aspirin) atorvastatin 10 mg tablet 20 mg PO DAILY 02/05/15 07/12/21 docusate sodium 100 mg capsule 200 mg PO BID PRN Constipation 02/05/15 07/12/21 (Stool Softener) sennosides 8.6 mg tablet (Senna 8.6 mg PO BID PRN Constipation 02/05/15 07/12/21 Lax) tamsulosin 0.4 mg capsule 0.4 mg PO DAILY PM 02/05/15 07/12/21 levetiracetam 1,000 mg tablet 1,000 mg PO BID 03/10/15 07/12/21 metoprolol tartrate 25 mg tablet 25 mg PO DAILY 03/10/15 07/12/21 rivaroxaban 20 mg tablet (Xarelto) 20 mg PO DAILY 11/03/15 07/12/21 acetaminophen 300 mg-codeine 30 mg 1 ea PO Q6HR PRN Pain 07/12/21 07/12/21 tablet sertraline 50 mg tablet 50 mg PO DAILY 07/12/21 07/12/21 Allergies Allergies Allergy/AdvReac Type Severity Reaction Status Date / Time No Known Drug Allergies Allergy Verified 05/25/24 13:07 [facility] [place] Medical History Medical History (Updated 05/25/24 @ 15:31 by Virgil Ayoub DNP) Antiphospholipid syndrome Social History Social History Smoking Status: Never smoker Do you dip or chew tobacco?: No Do you vape?: No Patient requests smoking cessation consult: No Initiate information on smoking cessation: No Relationship: Home Mobility Equipment: Walker Do you feel safe in your home environment?: Yes Suffered physical, verbal, emotional, or financial abuse?: No History of Abuse: No ETOH Use: Frequency: Occasional POLST Patient has POLST: Yes Review of Systems Limited ROS due to aphasia. ROS obtained from at bedside Status of ROS: 10 or more systems reviewed and unremarkable except as noted in history and below Constitutional Denies: Fever or Chills Cardiovascular Denies: chest pain, palpitations or shortness of breath with exertion Respiratory Denies: Shortness of breath or Cough Gastrointestinal Denies: Abdominal pain or Abdominal distention Genitourinary Denies: Painful urination Neurological Reports: Pre-existing deficit and Difficulty communicating thoughts Exam Constitutional Chronically ill-appearing elderly male. No acute distress HENMT normocephalic and head/scalp atraumatic Eyes PERRL Neck/C-Spine visual inspection normal Lymph no lymphadenopathy noted Chest inspection of chest normal Respiratory breath sounds equal bilaterally Cardiovascular normal heart rate noted Gastrointestinal abdomen normal to inspection and abdomen soft to palpation Extremities Swelling in legs, right greater than left. states this is chronic for him and he is already on Xarelto Neurology Alert, answers yes or no questions, moves all extremities Skin skin color normal Scabs on feet Conclusion/Plan Problem List (1) Acute lower gastrointestinal bleeding: Plan: Surgery contacted by ER provider, plan for colonoscopy when Xarelto is no longer in the system. Patient has been typed and screened, will transfuse until his hemoglobin is above 7. ED physician performed rectal exam, states that stool in rectal vault was brown, not bloody. Trend H&H every 8. If he experiences any drop in hemoglobin/hematocrit, or any rectal bleeding, will obtain CTA abdomen/pelvis. INR 2.3 (2) Antiphospholipid syndrome: Plan: Takes Xarelto for antiphospholipid syndrome, hematology/oncology recommends Xarelto for life. I am holding his Xarelto for now given his acute bleed, can discuss restarting this after the bleed is resolved Plan Full code is his surrogate decision maker Admit inpatient ICU Lab Results Lab results reviewed: Yes 05/25/24 13:20 05/25/24 13:20 EKG Results EKG Interpreted Independently: Yes EKG Findings: NSR Core Measures Anticipated LOS I expect patient to be DC'd or transferred within 96 hours.: Yes
[2024-05-25] MEDS ORDERED: SODIUM CHLORIDE FLUSH 0.9% 10 ML SYRINGE IVP PRN (15:17)
[2024-05-25] MEDS: SODIUM CHLORIDE 0.9% 1,000 ML IV STA (15:21)
[2024-05-25 16:47] LABS: BILIRUBIN,URINE NEGATIVE (NEGATIVE); GLUCOSE, URINE (UA) NEGATIVE (NEGATIVE); KETONES,URINE (UA) 15 mg/dL (NEGATIVE); LEUKOCYTE ESTERASE, URINE NEGATIVE (NEGATIVE); NITRITE,URINE NEGATIVE (NEGATIVE); OCCULT BLOOD,URINE NEGATIVE (NEGATIVE); PROTEIN,URINE NEGATIVE (NEGATIVE); UROBILINOGEN,URINE 0.2 (NORMAL) E.U./dL (NORMAL)
[2024-05-25 16:48] LABS: CLARITY,URINE CLEAR (CLEAR)
--- NOTE | 2024-05-25 17:30 | CONSULTATION NOTE ---
Referring Provider Name of Referring Provider:: Wendy Walters Consult Date: 05/25/24 Chief Complaint Chief Complaint Chief Complaint: Weakness, fatigue History of Present Illness History of Present Illness HPI Comment/Other: 84 male on Xeralto with two weeks of intermittent rectal bleeding with bowel motions. Progressive weakness and fatigued prompted transportation to our ED where he was found to be hemodynamically stable but anemic. He was admitted to the [facility] Service and the Surgery Service was asked to consider gastrointestional endoscopy to evaluate the source of the chronic blood loss. The patient has suffered a CVA in the past and has significant residual weakness and dysphasia. He is attended to by his who was present at the time of the encounter.. The patient denies abdominal pain. There has been no nausea or emesis, specifically no coffee grounds or fresh blood. In the ED he was found to have normal brown stool with a negative stool guaiac test. He has never had a colonoscopy examination. [facility] Medical History Medical History (Updated 05/25/24 @ 16:41 by Virgil Thompson RN) Antiphospholipid syndrome Social History Social History Smoking Status: Never smoker Second hand tobacco smoke exposure: No Do you dip or chew tobacco?: No Do you vape?: No Patient requests smoking cessation consult: No Initiate information on smoking cessation: No Relationship: Spouse Level: Assisted Home Mobility Equipment: Wheelchair Do you feel safe in your home environment?: Yes Suffered physical, verbal, emotional, or financial abuse?: No History of Abuse: No ETOH Use: Frequency: Occasional Substance Use: denies use POLST Patient has POLST: Yes Meds/Allgy Home Medications Ambulatory Orders Medication Instructions Recorded Confirmed aspirin 81 mg chewable tablet 81 mg PO DAILY 02/05/15 07/12/21 (Negrita Chewable Low Dose Aspirin) atorvastatin 10 mg tablet 20 mg PO DAILY 02/05/15 07/12/21 docusate sodium 100 mg capsule 200 mg PO BID PRN Constipation 02/05/15 07/12/21 (Stool Softener) sennosides 8.6 mg tablet (Senna 8.6 mg PO BID PRN Constipation 02/05/15 07/12/21 Lax) tamsulosin 0.4 mg capsule 0.4 mg PO DAILY PM 02/05/15 07/12/21 levetiracetam 1,000 mg tablet 1,000 mg PO BID 03/10/15 07/12/21 metoprolol tartrate 25 mg tablet 25 mg PO DAILY 03/10/15 07/12/21 rivaroxaban 20 mg tablet (Xarelto) 20 mg PO DAILY 11/03/15 07/12/21 acetaminophen 300 mg-codeine 30 mg 1 ea PO Q6HR PRN Pain 07/12/21 07/12/21 tablet sertraline 50 mg tablet 50 mg PO DAILY 07/12/21 07/12/21 Allergies Allergies Allergy/AdvReac Type Severity Reaction Status Date / Time No Known Drug Allergies Allergy Verified 05/25/24 13:07 Results Lab Results 05/25/24 13:20 05/25/24 13:20 Other Lab Results: Lab Results x24hrs 05/25/24 05/25/24 05/25/24 Range/Units 16:30 14:07 13:20 WBC (4.8-10.8) x10^3/uL RBC (4.70-6.10) 10^6/uL Hgb (14.0-18.0) g/dL Hct (42.0-52.0) % MCV (80.0-94.0) fL MCH (27.0-31.0) pg MCHC (32.0-36.0) g/dL RDW (12.0-15.0) % Plt Count (130-450) 10^3/uL MPV (7.4-11.4) fL Neut # (Auto) Lymph # (Auto) [place] # (Auto) Eos # (Auto) Baso # (Auto) Absolute Nucleated RBC Total Counted Band Neuts % (Manual) (0 - 10) % Abnorm Lymph % (Manual) % Nucleated RBC % Neutrophils # (Manual) (1.5-6.6) 10^3/uL Lymphocytes # (Manual) (1.5-3.5) 10^3/uL Monocytes # (Manual) (0.0-1.0) 10^3/uL Eosinophils # (Manual) (0-0.7) 10^3/uL Basophils # (Manual) (0-0.1) 10^3/uL Nucleated RBCs % Differential Comment Platelet Estimate (NORMAL) Platelet Morphology (NORMAL) RBC Morph Micro Appear 2+ HYPOCHROMASIA (NORMAL) PT 24.2 H (9.9-12.6) secs INR 2.3 H (0.8-1.2) Sodium 142 (135-145) mmol/L Potassium 4.9 H (3.5-4.5) mmol/L Chloride 110 (101-111) mmol/L Carbon Dioxide 23 (21-32) mmol/L Anion Gap 9.0 (6-13) BUN 43 H (6-20) mg/dL Creatinine 1.4 H (0.6-1.3) mg/dL Estimated GFR (MDRD) 49 L (>89) Glucose 121 H (74-104) mg/dL Calcium 8.9 (8.5-10.3) mg/dL Total Bilirubin 0.7 (0.2-1.0) mg/dL AST 204 H (10-42) IU/L ALT 169 H (10-60) IU/L Alkaline Phosphatase 71 (42-121) IU/L Total Protein 7.0 (6.4-8.9) g/dL Albumin 3.7 (3.2-5.5) g/dL Globulin 3.3 (2.1-4.2) g/dL Albumin/Globulin Ratio 1.1 (1.0-2.2) Lipase 20 (11-82) U/L Urine Color YELLOW Urine Clarity CLEAR (CLEAR) Urine pH 6.0 (5.0-7.5) PH Ur Specific [place] 1.020 (1.002-1.030) Urine Protein NEGATIVE (NEGATIVE) mg/dL Urine Glucose (UA) NEGATIVE (NEGATIVE) mg/dL Urine Ketones 15 H (NEGATIVE) mg/dL Urine Occult Blood NEGATIVE (NEGATIVE) Urine Nitrite NEGATIVE (NEGATIVE) Urine Bilirubin NEGATIVE (NEGATIVE) Urine Urobilinogen 0.2 (NORMAL) (NORMAL) E.U./dL Ur Leukocyte Esterase NEGATIVE (NEGATIVE) Ur Microscopic Review NOT INDICATED Urine Culture Comments NOT INDICATED Blood Type A POSITIVE Blood Type Recheck A POSITIVE Antibody Screen NEGATIVE Crossmatch IS Only See Detail 05/25/24 05/25/24 Range/Units 13:20 13:20 WBC 8.9 (4.8-10.8) x10^3/uL RBC 1.02 L (4.70-6.10) 10^6/uL Hgb 3.6 L* (14.0-18.0) g/dL Hct 11.8 L* (42.0-52.0) % MCV 115.7 H (80.0-94.0) fL MCH 35.3 H (27.0-31.0) pg MCHC 30.5 L (32.0-36.0) g/dL RDW 23.9 H (12.0-15.0) % Plt Count 103 L (130-450) 10^3/uL MPV 14.1 H (7.4-11.4) fL Neut # (Auto) Not Reportable Lymph # (Auto) Not Reportable [place] # (Auto) Not Reportable Eos # (Auto) Not Reportable Baso # (Auto) Not Reportable Absolute Nucleated RBC Not Reportable Total Counted 100 Band Neuts % (Manual) 1 (0 - 10) % Abnorm Lymph % (Manual) 0 % Nucleated RBC % Not Reportable Neutrophils # (Manual) 7.1 H (1.5-6.6) 10^3/uL Lymphocytes # (Manual) 1.3 L (1.5-3.5) 10^3/uL Monocytes # (Manual) 0.3 (0.0-1.0) 10^3/uL Eosinophils # (Manual) 0.1 (0-0.7) 10^3/uL Basophils # (Manual) 0.1 (0-0.1) 10^3/uL Nucleated RBCs 1 % Differential Comment MANUAL DIFFERENTIAL Platelet Estimate DECREASED (<130,000) (NORMAL) Platelet Morphology NORMAL APPEARANCE (NORMAL) RBC Morph Micro Appear 2+ MACROCYTOSIS 4+ ANISOCYTOSIS (NORMAL) PT (9.9-12.6) secs INR (0.8-1.2) Sodium (135-145) mmol/L Potassium (3.5-4.5) mmol/L Chloride (101-111) mmol/L Carbon Dioxide (21-32) mmol/L Anion Gap (6-13) BUN (6-20) mg/dL Creatinine (0.6-1.3) mg/dL Estimated GFR (MDRD) (>89) Glucose (74-104) mg/dL Calcium (8.5-10.3) mg/dL Total Bilirubin (0.2-1.0) mg/dL AST (10-42) IU/L ALT (10-60) IU/L Alkaline Phosphatase (42-121) IU/L Total Protein (6.4-8.9) g/dL Albumin (3.2-5.5) g/dL Globulin (2.1-4.2) g/dL Albumin/Globulin Ratio (1.0-2.2) Lipase (11-82) U/L Urine Color Urine Clarity (CLEAR) Urine pH (5.0-7.5) PH Ur Specific [place] (1.002-1.030) Urine Protein (NEGATIVE) mg/dL Urine Glucose (UA) (NEGATIVE) mg/dL Urine Ketones (NEGATIVE) mg/dL Urine Occult Blood (NEGATIVE) Urine Nitrite (NEGATIVE) Urine Bilirubin (NEGATIVE) Urine Urobilinogen (NORMAL) E.U./dL Ur Leukocyte Esterase (NEGATIVE) Ur Microscopic Review Urine Culture Comments Blood Type Blood Type Recheck Antibody Screen Crossmatch IS Only Conclusion and Plan Diagnosis Diagnosis: Anemia presumably due to chronic lower GI blood loss. This is either precipitated or aggravated by the concurrent use of Aspirin and Xeralto combined with an elevated INR. Plan Plan: 1) Stop the Xarelto and aspirin and reverse his INR 2) Transfuse to a Hgb greater than 7-8 gms/dl 3) Have briefly discussed the possibility of diagnostic colonoscopy with his . Although technically feasible, his anticoagulation status would need to be reversed which increases his risk of CVA with the procedure. She is not certain how well he would tolerate a bowel prep. An accurate depiction of risks and benefits of this procedure will require further discussion once he has stabilized. Sánchez White MD Review of Systems Painless intermittent hematochezia Exam Constitutional In no acute distress [facility] head/scalp atraumatic Eyes PERRL and EOMs intact bilaterally Respiratory breath sounds equal bilaterally and normal respiratory effort Cardiovascular normal heart rate noted and regular rhythm noted Gastrointestinal abdomen normal to inspection, abdomen soft to palpation and nontender to palpation
[2024-05-25] MEDS: SODIUM CHLORIDE FLUSH 0.9% 10 ML SYRINGE IVP SCH (17:33)
[2024-05-25] MEDS: LORazepam 2 MG/ML VIAL IVP PRN (19:01)
[2024-05-25 19:37] LABS: HCT - HEMATOCRIT 19.1 % (42.0-52.0)
[2024-05-25] MEDS: TAMSULOSIN 0.4 MG CAPSULE PO SCH (21:23)
[2024-05-25] MEDS: levETIRAcetam 250 MG TABLET PO SCH (21:23)
[2024-05-26 01:19] LABS: HCT - HEMATOCRIT 19.7 % (42.0-52.0); HGB - HEMOGLOBIN 6.4 g/dL (14.0-18.0)
[2024-05-26] MEDS ORDERED: ACETAMINOPHEN 1,000 MG/100 ML 1,000 MG/100 ML BAG IV ONE (02:29)
[2024-05-26] MEDS: ACETAMINOPHEN 1,000 MG/100 ML 1,000 MG/100 ML BAG IV PRN (02:33)
[2024-05-26 06:36] LABS: BASOPHILS % (AUTO) 0.3 %; EOSINOPHILS % (AUTO) 0.4 %; HCT - HEMATOCRIT 22.1 % (42.0-52.0); HGB - HEMOGLOBIN 7.1 g/dL (14.0-18.0); LYMPHOCYTES % (AUTO) 13.9 %; MEAN CORPUSCULAR HEMOGLOBIN 32.4 pg (27.0-31.0); MEAN CORPUSCULAR HGB CONC 32.1 g/dL (32.0-36.0); MEAN CORPUSCULAR VOLUME 100.9 fL (80.0-94.0); MEAN PLATELET VOLUME 13.5 fL (7.4-11.4); MONOCYTES % (AUTO) 2.6 %; NEUTROPHILS % (AUTO) 80.7 %; PLT - PLATELET COUNT 90 10^3/uL (130-450); RED BLOOD COUNT 2.19 10^6/uL (4.70-6.10)
[2024-05-26 06:38] LABS: CALCIUM, IONIZED 1.12 mmol/L (1.09-1.30); SLIDE REVIEW? Indicated; VBG PH 7.405 (7.31-7.41)
[2024-05-26 06:39] LABS: ABNORMAL LYMPHS % (MANUAL) 0 %
[2024-05-26 06:43] LABS: MAGNESIUM 2.5 mg/dL (1.7-2.3)
[2024-05-26 06:48] LABS: CALCIUM 7.9 mg/dL (8.5-10.3); CREATININE 1.2 mg/dL (0.6-1.3); PHOSPHORUS 3.6 mg/dL (2.5-5.0)
[2024-05-26 07:17] LABS: BAND NEUTROPHILS % (MANUAL) 8 %; LYMPHOCYTES # (MANUAL) 0.7 10^3/uL (1.5-3.5); LYMPHOCYTES % (MANUAL) 9 %; NEUTROPHILS # (MANUAL) 6.3 10^3/uL (1.5-6.6); REACTIVE LYMPHS % (MANUAL) 1 %
[2024-05-26 07:18] LABS: DIFFERENTIAL COMMENT MANUAL DIFFERENTIAL; PLATELET ESTIMATE, MANUAL DECREASED (<130,000) (NORMAL)
[2024-05-26] MEDS: SERTRALINE 50 MG TABLET PO SCH (08:32)
--- NOTE | 2024-05-26 10:40 | PROVIDER PROGRESS NOTE ---
Current Medications Current Medications Current Medications: Current Medications Generic Name Dose Route Start Last Admin Trade Name Freq PRN Reason Stop Dose Admin Acetaminophen 650 mg 05/25/24 15:17 Acetaminophen 325 Mg Tablet PO Q4HR PRN Pain 1 to 4, or Fever Acetaminophen 1,000 mg in 100 mls @ 400 mls/hr 05/26/24 02:27 05/26/24 02:55 Acetaminophen IV Infused Q6HR PRN Infusion FEVER > 100.5 F Levetiracetam 1,000 mg 05/25/24 21:00 05/26/24 08:32 Levetiracetam 250 Mg Tablet PO 1,000 mg BID FELICITA Administration Lorazepam 1 mg 05/25/24 18:32 05/25/24 19:01 Lorazepam 2 Mg/Ml Vial IVP 1 mg Q30M PRN Administration CIWA >8 Protocol Oxycodone HCl 5 mg 05/25/24 15:17 Oxycodone 5 Mg Tablet PO Q4HR PRN Pain 5 to 7 Sertraline HCl 50 mg 05/26/24 09:00 05/26/24 08:32 Sertraline 50 Mg Tablet PO 50 mg DAILY FELICITA Administration Sodium Chloride 10 ml 05/25/24 17:00 05/26/24 08:32 Sodium Chloride Flush 0.9% 10 Ml Syringe IVP 10 ml 0100,0900,1700 FELICITA Administration Sodium Chloride 10 ml 05/25/24 15:17 Sodium Chloride Flush 0.9% 10 Ml Syringe IVP PRN PRN NEEDED PER PROVIDER ORDERS Tamsulosin HCl 0.4 mg 05/25/24 21:00 05/25/24 21:23 Tamsulosin 0.4 Mg Capsule PO 0.4 mg NIGHTLY FELICITA Administration Objective Vital Signs/Intake & Output Vital Signs: Vital Signs x48h Temp Pulse Resp BP Pulse Ox O2 Flow Rate 05/26/24 09:00 70 29 H 144/81 H 92 05/26/24 08:00 37.2 C 71 37 H 120/51 L 93 05/26/24 07:00 66 22 124/61 96 2 05/26/24 06:00 71 21 134/59 H 93 2 05/26/24 05:00 78 18 131/64 H 91 L 2 05/26/24 04:30 37.0 C 71 27 H 133/74 H 94 2 05/26/24 03:00 73 21 131/68 H 94 2 05/26/24 02:54 36.5 C 70 21 141/64 H 94 2 05/26/24 02:54 38.3 C H 77 23 141/66 H 90 L 05/26/24 02:37 38.4 C H 81 24 130/96 H 90 L Intake & Output: Intake & Output 05/23/24 05/24/24 05/25/24 05/26/24 23:59 23:59 23:59 23:59 Intake Total 2019 480 / 480 Output Total 379 / 379 395 / 395 Balance 1641 / 1641 85 / 85 Weight (kg) 97 kg 101.5 kg Lab Results 05/26/24 06:27 05/26/24 06:27 Other Labs: Lab Results x24hrs 05/26/24 05/26/24 05/26/24 Range/Units 06:27 06:27 06:27 WBC 7.0 (4.8-10.8) x10^3/uL RBC 2.19 L (4.70-6.10) 10^6/uL Hgb 7.1 L (14.0-18.0) g/dL Hct 22.1 L (42.0-52.0) % MCV 100.9 H (80.0-94.0) fL MCH 32.4 H (27.0-31.0) pg MCHC 32.1 (32.0-36.0) g/dL RDW 21.0 H (12.0-15.0) % Plt Count 90 L (130-450) 10^3/uL MPV 13.5 H (7.4-11.4) fL Neut # (Auto) Not Reportable Lymph # (Auto) Not Reportable [place] # (Auto) Not Reportable Eos # (Auto) Not Reportable Baso # (Auto) Not Reportable Absolute Nucleated RBC Not Reportable Total Counted 100 Band Neuts % (Manual) 8 (0 - 10) % Reactive Lymphs % (Man) 1 % Abnorm Lymph % (Manual) 0 % Nucleated RBC % Not Reportable Neutrophils # (Manual) 6.3 (1.5-6.6) 10^3/uL Lymphocytes # (Manual) 0.7 L (1.5-3.5) 10^3/uL Monocytes # (Manual) 0.0 (0.0-1.0) 10^3/uL Eosinophils # (Manual) 0.0 (0-0.7) 10^3/uL Basophils # (Manual) 0.0 (0-0.1) 10^3/uL Nucleated RBCs % Differential Comment MANUAL DIFFERENTIAL Manual Slide Review Indicated Platelet Estimate DECREASED (<130,000) (NORMAL) Platelet Morphology (NORMAL) RBC Morph Micro Appear 2+ MICROCYTOSIS 1+ MACROCYTOSIS 4+ ANISOCYTOSIS (NORMAL) PT (9.9-12.6) secs INR (0.8-1.2) VBG pH 7.405 (7.31-7.41) Ionized Calcium 1.12 (1.09-1.30) mmol/L Sodium 141 (135-145) mmol/L Potassium 4.0 (3.5-4.5) mmol/L Chloride 111 (101-111) mmol/L Carbon Dioxide 22 (21-32) mmol/L Anion Gap 8.0 (6-13) BUN 41 H (6-20) mg/dL Creatinine 1.2 (0.6-1.3) mg/dL Estimated GFR (MDRD) 58 L (>89) Glucose 109 H (74-104) mg/dL Calcium 7.9 L (8.5-10.3) mg/dL Phosphorus 3.6 (2.5-5.0) mg/dL Magnesium 2.5 H (1.7-2.3) mg/dL Total Bilirubin (0.2-1.0) mg/dL AST (10-42) IU/L ALT (10-60) IU/L Alkaline Phosphatase (42-121) IU/L Total Protein (6.4-8.9) g/dL Albumin (3.2-5.5) g/dL Globulin (2.1-4.2) g/dL Albumin/Globulin Ratio (1.0-2.2) Lipase (11-82) U/L Urine Color Urine Clarity (CLEAR) Urine pH (5.0-7.5) PH Ur Specific [place] (1.002-1.030) Urine Protein (NEGATIVE) mg/dL Urine Glucose (UA) (NEGATIVE) mg/dL Urine Ketones (NEGATIVE) mg/dL Urine Occult Blood (NEGATIVE) Urine Nitrite (NEGATIVE) Urine Bilirubin (NEGATIVE) Urine Urobilinogen (NORMAL) E.U./dL Ur Leukocyte Esterase (NEGATIVE) Ur Microscopic Review Urine Culture Comments Nasal Screen MRSA (PCR) (NEGATIVE) Blood Type Blood Type Recheck Antibody Screen Crossmatch IS Only 05/26/24 05/25/24 05/25/24 Range/Units 00:55 18:59 16:30 WBC (4.8-10.8) x10^3/uL RBC (4.70-6.10) 10^6/uL Hgb 6.4 L* 6.0 L* (14.0-18.0) g/dL Hct 19.7 L* 19.1 L* (42.0-52.0) % MCV (80.0-94.0) fL MCH (27.0-31.0) pg MCHC (32.0-36.0) g/dL RDW (12.0-15.0) % Plt Count (130-450) 10^3/uL MPV (7.4-11.4) fL Neut # (Auto) Lymph # (Auto) [place] # (Auto) Eos # (Auto) Baso # (Auto) Absolute Nucleated RBC Total Counted Band Neuts % (Manual) (0 - 10) % Reactive Lymphs % (Man) % Abnorm Lymph % (Manual) % Nucleated RBC % Neutrophils # (Manual) (1.5-6.6) 10^3/uL Lymphocytes # (Manual) (1.5-3.5) 10^3/uL Monocytes # (Manual) (0.0-1.0) 10^3/uL Eosinophils # (Manual) (0-0.7) 10^3/uL Basophils # (Manual) (0-0.1) 10^3/uL Nucleated RBCs % Differential Comment Manual Slide Review Platelet Estimate (NORMAL) Platelet Morphology (NORMAL) RBC Morph Micro Appear (NORMAL) PT (9.9-12.6) secs INR (0.8-1.2) VBG pH (7.31-7.41) Ionized Calcium (1.09-1.30) mmol/L Sodium (135-145) mmol/L Potassium (3.5-4.5) mmol/L Chloride (101-111) mmol/L Carbon Dioxide (21-32) mmol/L Anion Gap (6-13) BUN (6-20) mg/dL Creatinine (0.6-1.3) mg/dL Estimated GFR (MDRD) (>89) Glucose (74-104) mg/dL Calcium (8.5-10.3) mg/dL Phosphorus (2.5-5.0) mg/dL Magnesium (1.7-2.3) mg/dL Total Bilirubin (0.2-1.0) mg/dL AST (10-42) IU/L ALT (10-60) IU/L Alkaline Phosphatase (42-121) IU/L Total Protein (6.4-8.9) g/dL Albumin (3.2-5.5) g/dL Globulin (2.1-4.2) g/dL Albumin/Globulin Ratio (1.0-2.2) Lipase (11-82) U/L Urine Color YELLOW Urine Clarity CLEAR (CLEAR) Urine pH 6.0 (5.0-7.5) PH Ur Specific [place] 1.020 (1.002-1.030) Urine Protein NEGATIVE (NEGATIVE) mg/dL Urine Glucose (UA) NEGATIVE (NEGATIVE) mg/dL Urine Ketones 15 H (NEGATIVE) mg/dL Urine Occult Blood NEGATIVE (NEGATIVE) Urine Nitrite NEGATIVE (NEGATIVE) Urine Bilirubin NEGATIVE (NEGATIVE) Urine Urobilinogen 0.2 (NORMAL) (NORMAL) E.U./dL Ur Leukocyte Esterase NEGATIVE (NEGATIVE) Ur Microscopic Review NOT INDICATED Urine Culture Comments NOT INDICATED Nasal Screen MRSA (PCR) (NEGATIVE) Blood Type Blood Type Recheck Antibody Screen Crossmatch IS Only 05/25/24 05/25/24 05/25/24 Range/Units 15:40 14:07 13:20 WBC (4.8-10.8) x10^3/uL RBC (4.70-6.10) 10^6/uL Hgb (14.0-18.0) g/dL Hct (42.0-52.0) % MCV (80.0-94.0) fL MCH (27.0-31.0) pg MCHC (32.0-36.0) g/dL RDW (12.0-15.0) % Plt Count (130-450) 10^3/uL MPV (7.4-11.4) fL Neut # (Auto) Lymph # (Auto) [place] # (Auto) Eos # (Auto) Baso # (Auto) Absolute Nucleated RBC Total Counted Band Neuts % (Manual) (0 - 10) % Reactive Lymphs % (Man) % Abnorm Lymph % (Manual) % Nucleated RBC % Neutrophils # (Manual) (1.5-6.6) 10^3/uL Lymphocytes # (Manual) (1.5-3.5) 10^3/uL Monocytes # (Manual) (0.0-1.0) 10^3/uL Eosinophils # (Manual) (0-0.7) 10^3/uL Basophils # (Manual) (0-0.1) 10^3/uL Nucleated RBCs % Differential Comment Manual Slide Review Platelet Estimate (NORMAL) Platelet Morphology (NORMAL) RBC Morph Micro Appear 2+ HYPOCHROMASIA (NORMAL) PT 24.2 H (9.9-12.6) secs INR 2.3 H (0.8-1.2) VBG pH (7.31-7.41) Ionized Calcium (1.09-1.30) mmol/L Sodium 142 (135-145) mmol/L Potassium 4.9 H (3.5-4.5) mmol/L Chloride 110 (101-111) mmol/L Carbon Dioxide 23 (21-32) mmol/L Anion Gap 9.0 (6-13) BUN 43 H (6-20) mg/dL Creatinine 1.4 H (0.6-1.3) mg/dL Estimated GFR (MDRD) 49 L (>89) Glucose 121 H (74-104) mg/dL Calcium 8.9 (8.5-10.3) mg/dL Phosphorus (2.5-5.0) mg/dL Magnesium (1.7-2.3) mg/dL Total Bilirubin 0.7 (0.2-1.0) mg/dL AST 204 H (10-42) IU/L ALT 169 H (10-60) IU/L Alkaline Phosphatase 71 (42-121) IU/L Total Protein 7.0 (6.4-8.9) g/dL Albumin 3.7 (3.2-5.5) g/dL Globulin 3.3 (2.1-4.2) g/dL Albumin/Globulin Ratio 1.1 (1.0-2.2) Lipase 20 (11-82) U/L Urine Color Urine Clarity (CLEAR) Urine pH (5.0-7.5) PH Ur Specific [place] (1.002-1.030) Urine Protein (NEGATIVE) mg/dL Urine Glucose (UA) (NEGATIVE) mg/dL Urine Ketones (NEGATIVE) mg/dL Urine Occult Blood (NEGATIVE) Urine Nitrite (NEGATIVE) Urine Bilirubin (NEGATIVE) Urine Urobilinogen (NORMAL) E.U./dL Ur Leukocyte Esterase (NEGATIVE) Ur Microscopic Review Urine Culture Comments Nasal Screen MRSA (PCR) NEGATIVE (NEGATIVE) Blood Type A POSITIVE Blood Type Recheck A POSITIVE Antibody Screen NEGATIVE Crossmatch IS Only See Detail 05/25/24 05/25/24 Range/Units 13:20 13:20 WBC 8.9 (4.8-10.8) x10^3/uL RBC 1.02 L (4.70-6.10) 10^6/uL Hgb 3.6 L* (14.0-18.0) g/dL Hct 11.8 L* (42.0-52.0) % MCV 115.7 H (80.0-94.0) fL MCH 35.3 H (27.0-31.0) pg MCHC 30.5 L (32.0-36.0) g/dL RDW 23.9 H (12.0-15.0) % Plt Count 103 L (130-450) 10^3/uL MPV 14.1 H (7.4-11.4) fL Neut # (Auto) Not Reportable Lymph # (Auto) Not Reportable [place] # (Auto) Not Reportable Eos # (Auto) Not Reportable Baso # (Auto) Not Reportable Absolute Nucleated RBC Not Reportable Total Counted 100 Band Neuts % (Manual) 1 (0 - 10) % Reactive Lymphs % (Man) % Abnorm Lymph % (Manual) 0 % Nucleated RBC % Not Reportable Neutrophils # (Manual) 7.1 H (1.5-6.6) 10^3/uL Lymphocytes # (Manual) 1.3 L (1.5-3.5) 10^3/uL Monocytes # (Manual) 0.3 (0.0-1.0) 10^3/uL Eosinophils # (Manual) 0.1 (0-0.7) 10^3/uL Basophils # (Manual) 0.1 (0-0.1) 10^3/uL Nucleated RBCs 1 % Differential Comment MANUAL DIFFERENTIAL Manual Slide Review Platelet Estimate DECREASED (<130,000) (NORMAL) Platelet Morphology NORMAL APPEARANCE (NORMAL) RBC Morph Micro Appear 2+ MACROCYTOSIS 4+ ANISOCYTOSIS (NORMAL) PT (9.9-12.6) secs INR (0.8-1.2) VBG pH (7.31-7.41) Ionized Calcium (1.09-1.30) mmol/L Sodium (135-145) mmol/L Potassium (3.5-4.5) mmol/L Chloride (101-111) mmol/L Carbon Dioxide (21-32) mmol/L Anion Gap (6-13) BUN (6-20) mg/dL Creatinine (0.6-1.3) mg/dL Estimated GFR (MDRD) (>89) Glucose (74-104) mg/dL Calcium (8.5-10.3) mg/dL Phosphorus (2.5-5.0) mg/dL Magnesium (1.7-2.3) mg/dL Total Bilirubin (0.2-1.0) mg/dL AST (10-42) IU/L ALT (10-60) IU/L Alkaline Phosphatase (42-121) IU/L Total Protein (6.4-8.9) g/dL Albumin (3.2-5.5) g/dL Globulin (2.1-4.2) g/dL Albumin/Globulin Ratio (1.0-2.2) Lipase (11-82) U/L Urine Color Urine Clarity (CLEAR) Urine pH (5.0-7.5) PH Ur Specific [place] (1.002-1.030) Urine Protein (NEGATIVE) mg/dL Urine Glucose (UA) (NEGATIVE) mg/dL Urine Ketones (NEGATIVE) mg/dL Urine Occult Blood (NEGATIVE) Urine Nitrite (NEGATIVE) Urine Bilirubin (NEGATIVE) Urine Urobilinogen (NORMAL) E.U./dL Ur Leukocyte Esterase (NEGATIVE) Ur Microscopic Review Urine Culture Comments Nasal Screen MRSA (PCR) (NEGATIVE) Blood Type Blood Type Recheck Antibody Screen Crossmatch IS Only Assessment/Plan Problem List (1) Acute lower gastrointestinal bleeding: (2) Antiphospholipid syndrome: Impression: General Surgery Progress Note S: Patient without lower GI bleeding since hospitalized. O: VSS, H&H 7. this morning after 4 units. A: Request for colonoscopy to determine if lower GI tract is the source of his anemia. P: Colonoscopy after a bowel prep which can be started this afternoon. C ontinue to transfuse PRBC as needed. Consent: CS Severo and his have been counseled for the procedure, it's indications, risks, benefits and expected outcome as well as alternative therapies. We specifically discussed risks associated with anesthesia and insertion of the endoscope into the large intestine which includes bleeding and injury to the colon which may require surgical intervention. Severo and his understand, agree, and consent to the proposed operative strategy and requests that we proceed with the procedure as outlined in our discussion. Sánchez White MD, [facility] General Surgery Service
--- NOTE | 2024-05-26 12:50 | PROVIDER PROGRESS NOTE ---
Subjective Prog Note Date Prog Note Date: 05/26/24 Subjective Pt reports feeling: Improved Current Medications Current Medications Current Medications: Current Medications Generic Name Dose Route Start Last Admin Trade Name Jessie PRN Reason Stop Dose Admin Acetaminophen 650 mg 05/25/24 15:17 Acetaminophen 325 Mg Tablet PO Q4HR PRN Pain 1 to 4, or Fever Acetaminophen 1,000 mg in 100 mls @ 400 mls/hr 05/26/24 02:27 05/26/24 02:55 Acetaminophen IV Infused Q6HR PRN Infusion FEVER > 100.5 F Levetiracetam 1,000 mg 05/25/24 21:00 05/26/24 08:32 Levetiracetam 250 Mg Tablet PO 1,000 mg BID FELICITA Administration Lorazepam 1 mg 05/25/24 18:32 05/25/24 19:01 Lorazepam 2 Mg/Ml Vial IVP 1 mg Q30M PRN Administration CIWA >8 Protocol Oxycodone HCl 5 mg 05/25/24 15:17 Oxycodone 5 Mg Tablet PO Q4HR PRN Pain 5 to 7 Sertraline HCl 50 mg 05/26/24 09:00 05/26/24 08:32 Sertraline 50 Mg Tablet PO 50 mg DAILY FELICITA Administration Sodium Chloride 10 ml 05/25/24 17:00 05/26/24 08:32 Sodium Chloride Flush 0.9% 10 Ml Syringe IVP 10 ml 0100,0900,1700 FELICITA Administration Sodium Chloride 10 ml 05/25/24 15:17 Sodium Chloride Flush 0.9% 10 Ml Syringe IVP PRN PRN NEEDED PER PROVIDER ORDERS Sodium Sulfate/Potass Sulf/Mag Sulf 177 ml 05/26/24 18:00 Sodium/Potassium/Mag Sulfates 354 Ml Prep Kit PO 05/27/24 05:01 1800,0500 FELICITA Tamsulosin HCl 0.4 mg 05/25/24 21:00 05/25/24 21:23 Tamsulosin 0.4 Mg Capsule PO 0.4 mg NIGHTLY FELICITA Administration Objective Vital Signs/Intake & Output Reviewed Vital Signs: Yes Vital Signs: Vital Signs x48h Temp Pulse Resp BP Pulse Ox O2 Flow Rate 05/26/24 09:00 70 29 H 144/81 H 92 05/26/24 08:00 37.2 C 71 37 H 120/51 L 93 05/26/24 07:00 66 22 124/61 96 2 05/26/24 06:00 71 21 134/59 H 93 2 05/26/24 05:00 78 18 131/64 H 91 L 2 Intake & Output: Intake & Output 05/23/24 05/24/24 05/25/24 05/26/24 23:59 23:59 23:59 23:59 Intake Total 2019 480 / 480 Output Total 379 / 379 395 / 395 Balance 1641 / 1641 85 / 85 Weight (kg) 97 kg 101.5 kg Objective General Appearance: positive No acute distress and Alert Eyes Bilateral: positive Normal inspection and PERRL ENT: positive ENT inspection nml Neck: positive No JVD Respiratory: positive Chest non-tender Cardiovascular: positive Regular rate & rhythm Abdomen: positive Non-tender Skin: positive Color nml Extremities: positive Pedal edema Neurologic/Psychiatric: positive Other (Answers yes/no questions) Lab Results 05/26/24 06:27 05/26/24 06:27 Other Labs: Lab Results x24hrs 05/26/24 05/26/24 05/26/24 Range/Units 06:27 06:27 06:27 WBC 7.0 (4.8-10.8) x10^3/uL RBC 2.19 L (4.70-6.10) 10^6/uL Hgb 7.1 L (14.0-18.0) g/dL Hct 22.1 L (42.0-52.0) % MCV 100.9 H (80.0-94.0) fL MCH 32.4 H (27.0-31.0) pg MCHC 32.1 (32.0-36.0) g/dL RDW 21.0 H (12.0-15.0) % Plt Count 90 L (130-450) 10^3/uL MPV 13.5 H (7.4-11.4) fL Neut # (Auto) Not Reportable Lymph # (Auto) Not Reportable [place] # (Auto) Not Reportable Eos # (Auto) Not Reportable Baso # (Auto) Not Reportable Absolute Nucleated RBC Not Reportable Total Counted 100 Band Neuts % (Manual) 8 (0 - 10) % Reactive Lymphs % (Man) 1 % Abnorm Lymph % (Manual) 0 % Nucleated RBC % Not Reportable Neutrophils # (Manual) 6.3 (1.5-6.6) 10^3/uL Lymphocytes # (Manual) 0.7 L (1.5-3.5) 10^3/uL Monocytes # (Manual) 0.0 (0.0-1.0) 10^3/uL Eosinophils # (Manual) 0.0 (0-0.7) 10^3/uL Basophils # (Manual) 0.0 (0-0.1) 10^3/uL Nucleated RBCs % Differential Comment MANUAL DIFFERENTIAL Manual Slide Review Indicated Platelet Estimate DECREASED (<130,000) (NORMAL) Platelet Morphology (NORMAL) RBC Morph Micro Appear 2+ MICROCYTOSIS 1+ MACROCYTOSIS 4+ ANISOCYTOSIS (NORMAL) PT (9.9-12.6) secs INR (0.8-1.2) VBG pH 7.405 (7.31-7.41) Ionized Calcium 1.12 (1.09-1.30) mmol/L Sodium 141 (135-145) mmol/L Potassium 4.0 (3.5-4.5) mmol/L Chloride 111 (101-111) mmol/L Carbon Dioxide 22 (21-32) mmol/L Anion Gap 8.0 (6-13) BUN 41 H (6-20) mg/dL Creatinine 1.2 (0.6-1.3) mg/dL Estimated GFR (MDRD) 58 L (>89) Glucose 109 H (74-104) mg/dL Calcium 7.9 L (8.5-10.3) mg/dL Phosphorus 3.6 (2.5-5.0) mg/dL Magnesium 2.5 H (1.7-2.3) mg/dL Total Bilirubin (0.2-1.0) mg/dL AST (10-42) IU/L ALT (10-60) IU/L Alkaline Phosphatase (42-121) IU/L Total Protein (6.4-8.9) g/dL Albumin (3.2-5.5) g/dL Globulin (2.1-4.2) g/dL Albumin/Globulin Ratio (1.0-2.2) Lipase (11-82) U/L Urine Color Urine Clarity (CLEAR) Urine pH (5.0-7.5) PH Ur Specific [place] (1.002-1.030) Urine Protein (NEGATIVE) mg/dL Urine Glucose (UA) (NEGATIVE) mg/dL Urine Ketones (NEGATIVE) mg/dL Urine Occult Blood (NEGATIVE) Urine Nitrite (NEGATIVE) Urine Bilirubin (NEGATIVE) Urine Urobilinogen (NORMAL) E.U./dL Ur Leukocyte Esterase (NEGATIVE) Ur Microscopic Review Urine Culture Comments Nasal Screen MRSA (PCR) (NEGATIVE) Blood Type Blood Type Recheck Antibody Screen Crossmatch IS Only 05/26/24 05/25/24 05/25/24 Range/Units 00:55 18:59 16:30 WBC (4.8-10.8) x10^3/uL RBC (4.70-6.10) 10^6/uL Hgb 6.4 L* 6.0 L* (14.0-18.0) g/dL Hct 19.7 L* 19.1 L* (42.0-52.0) % MCV (80.0-94.0) fL MCH (27.0-31.0) pg MCHC (32.0-36.0) g/dL RDW (12.0-15.0) % Plt Count (130-450) 10^3/uL MPV (7.4-11.4) fL Neut # (Auto) Lymph # (Auto) [place] # (Auto) Eos # (Auto) Baso # (Auto) Absolute Nucleated RBC Total Counted Band Neuts % (Manual) (0 - 10) % Reactive Lymphs % (Man) % Abnorm Lymph % (Manual) % Nucleated RBC % Neutrophils # (Manual) (1.5-6.6) 10^3/uL Lymphocytes # (Manual) (1.5-3.5) 10^3/uL Monocytes # (Manual) (0.0-1.0) 10^3/uL Eosinophils # (Manual) (0-0.7) 10^3/uL Basophils # (Manual) (0-0.1) 10^3/uL Nucleated RBCs % Differential Comment Manual Slide Review Platelet Estimate (NORMAL) Platelet Morphology (NORMAL) RBC Morph Micro Appear (NORMAL) PT (9.9-12.6) secs INR (0.8-1.2) VBG pH (7.31-7.41) Ionized Calcium (1.09-1.30) mmol/L Sodium (135-145) mmol/L Potassium (3.5-4.5) mmol/L Chloride (101-111) mmol/L Carbon Dioxide (21-32) mmol/L Anion Gap (6-13) BUN (6-20) mg/dL Creatinine (0.6-1.3) mg/dL Estimated GFR (MDRD) (>89) Glucose (74-104) mg/dL Calcium (8.5-10.3) mg/dL Phosphorus (2.5-5.0) mg/dL Magnesium (1.7-2.3) mg/dL Total Bilirubin (0.2-1.0) mg/dL AST (10-42) IU/L ALT (10-60) IU/L Alkaline Phosphatase (42-121) IU/L Total Protein (6.4-8.9) g/dL Albumin (3.2-5.5) g/dL Globulin (2.1-4.2) g/dL Albumin/Globulin Ratio (1.0-2.2) Lipase (11-82) U/L Urine Color YELLOW Urine Clarity CLEAR (CLEAR) Urine pH 6.0 (5.0-7.5) PH Ur Specific [place] 1.020 (1.002-1.030) Urine Protein NEGATIVE (NEGATIVE) mg/dL Urine Glucose (UA) NEGATIVE (NEGATIVE) mg/dL Urine Ketones 15 H (NEGATIVE) mg/dL Urine Occult Blood NEGATIVE (NEGATIVE) Urine Nitrite NEGATIVE (NEGATIVE) Urine Bilirubin NEGATIVE (NEGATIVE) Urine Urobilinogen 0.2 (NORMAL) (NORMAL) E.U./dL Ur Leukocyte Esterase NEGATIVE (NEGATIVE) Ur Microscopic Review NOT INDICATED Urine Culture Comments NOT INDICATED Nasal Screen MRSA (PCR) (NEGATIVE) Blood Type Blood Type Recheck Antibody Screen Crossmatch IS Only 05/25/24 05/25/24 05/25/24 Range/Units 15:40 14:07 13:20 WBC (4.8-10.8) x10^3/uL RBC (4.70-6.10) 10^6/uL Hgb (14.0-18.0) g/dL Hct (42.0-52.0) % MCV (80.0-94.0) fL MCH (27.0-31.0) pg MCHC (32.0-36.0) g/dL RDW (12.0-15.0) % Plt Count (130-450) 10^3/uL MPV (7.4-11.4) fL Neut # (Auto) Lymph # (Auto) [place] # (Auto) Eos # (Auto) Baso # (Auto) Absolute Nucleated RBC Total Counted Band Neuts % (Manual) (0 - 10) % Reactive Lymphs % (Man) % Abnorm Lymph % (Manual) % Nucleated RBC % Neutrophils # (Manual) (1.5-6.6) 10^3/uL Lymphocytes # (Manual) (1.5-3.5) 10^3/uL Monocytes # (Manual) (0.0-1.0) 10^3/uL Eosinophils # (Manual) (0-0.7) 10^3/uL Basophils # (Manual) (0-0.1) 10^3/uL Nucleated RBCs % Differential Comment Manual Slide Review Platelet Estimate (NORMAL) Platelet Morphology (NORMAL) RBC Morph Micro Appear 2+ HYPOCHROMASIA (NORMAL) PT 24.2 H (9.9-12.6) secs INR 2.3 H (0.8-1.2) VBG pH (7.31-7.41) Ionized Calcium (1.09-1.30) mmol/L Sodium 142 (135-145) mmol/L Potassium 4.9 H (3.5-4.5) mmol/L Chloride 110 (101-111) mmol/L Carbon Dioxide 23 (21-32) mmol/L Anion Gap 9.0 (6-13) BUN 43 H (6-20) mg/dL Creatinine 1.4 H (0.6-1.3) mg/dL Estimated GFR (MDRD) 49 L (>89) Glucose 121 H (74-104) mg/dL Calcium 8.9 (8.5-10.3) mg/dL Phosphorus (2.5-5.0) mg/dL Magnesium (1.7-2.3) mg/dL Total Bilirubin 0.7 (0.2-1.0) mg/dL AST 204 H (10-42) IU/L ALT 169 H (10-60) IU/L Alkaline Phosphatase 71 (42-121) IU/L Total Protein 7.0 (6.4-8.9) g/dL Albumin 3.7 (3.2-5.5) g/dL Globulin 3.3 (2.1-4.2) g/dL Albumin/Globulin Ratio 1.1 (1.0-2.2) Lipase 20 (11-82) U/L Urine Color Urine Clarity (CLEAR) Urine pH (5.0-7.5) PH Ur Specific [place] (1.002-1.030) Urine Protein (NEGATIVE) mg/dL Urine Glucose (UA) (NEGATIVE) mg/dL Urine Ketones (NEGATIVE) mg/dL Urine Occult Blood (NEGATIVE) Urine Nitrite (NEGATIVE) Urine Bilirubin (NEGATIVE) Urine Urobilinogen (NORMAL) E.U./dL Ur Leukocyte Esterase (NEGATIVE) Ur Microscopic Review Urine Culture Comments Nasal Screen MRSA (PCR) NEGATIVE (NEGATIVE) Blood Type A POSITIVE Blood Type Recheck A POSITIVE Antibody Screen NEGATIVE Crossmatch IS Only See Detail 05/25/24 05/25/24 Range/Units 13:20 13:20 WBC 8.9 (4.8-10.8) x10^3/uL RBC 1.02 L (4.70-6.10) 10^6/uL Hgb 3.6 L* (14.0-18.0) g/dL Hct 11.8 L* (42.0-52.0) % MCV 115.7 H (80.0-94.0) fL MCH 35.3 H (27.0-31.0) pg MCHC 30.5 L (32.0-36.0) g/dL RDW 23.9 H (12.0-15.0) % Plt Count 103 L (130-450) 10^3/uL MPV 14.1 H (7.4-11.4) fL Neut # (Auto) Not Reportable Lymph # (Auto) Not Reportable [place] # (Auto) Not Reportable Eos # (Auto) Not Reportable Baso # (Auto) Not Reportable Absolute Nucleated RBC Not Reportable Total Counted 100 Band Neuts % (Manual) 1 (0 - 10) % Reactive Lymphs % (Man) % Abnorm Lymph % (Manual) 0 % Nucleated RBC % Not Reportable Neutrophils # (Manual) 7.1 H (1.5-6.6) 10^3/uL Lymphocytes # (Manual) 1.3 L (1.5-3.5) 10^3/uL Monocytes # (Manual) 0.3 (0.0-1.0) 10^3/uL Eosinophils # (Manual) 0.1 (0-0.7) 10^3/uL Basophils # (Manual) 0.1 (0-0.1) 10^3/uL Nucleated RBCs 1 % Differential Comment MANUAL DIFFERENTIAL Manual Slide Review Platelet Estimate DECREASED (<130,000) (NORMAL) Platelet Morphology NORMAL APPEARANCE (NORMAL) RBC Morph Micro Appear 2+ MACROCYTOSIS 4+ ANISOCYTOSIS (NORMAL) PT (9.9-12.6) secs INR (0.8-1.2) VBG pH (7.31-7.41) Ionized Calcium (1.09-1.30) mmol/L Sodium (135-145) mmol/L Potassium (3.5-4.5) mmol/L Chloride (101-111) mmol/L Carbon Dioxide (21-32) mmol/L Anion Gap (6-13) BUN (6-20) mg/dL Creatinine (0.6-1.3) mg/dL Estimated GFR (MDRD) (>89) Glucose (74-104) mg/dL Calcium (8.5-10.3) mg/dL Phosphorus (2.5-5.0) mg/dL Magnesium (1.7-2.3) mg/dL Total Bilirubin (0.2-1.0) mg/dL AST (10-42) IU/L ALT (10-60) IU/L Alkaline Phosphatase (42-121) IU/L Total Protein (6.4-8.9) g/dL Albumin (3.2-5.5) g/dL Globulin (2.1-4.2) g/dL Albumin/Globulin Ratio (1.0-2.2) Lipase (11-82) U/L Urine Color Urine Clarity (CLEAR) Urine pH (5.0-7.5) PH Ur Specific [place] (1.002-1.030) Urine Protein (NEGATIVE) mg/dL Urine Glucose (UA) (NEGATIVE) mg/dL Urine Ketones (NEGATIVE) mg/dL Urine Occult Blood (NEGATIVE) Urine Nitrite (NEGATIVE) Urine Bilirubin (NEGATIVE) Urine Urobilinogen (NORMAL) E.U./dL Ur Leukocyte Esterase (NEGATIVE) Ur Microscopic Review Urine Culture Comments Nasal Screen MRSA (PCR) (NEGATIVE) Blood Type Blood Type Recheck Antibody Screen Crossmatch IS Only Assessment/Plan Problem List (1) Acute lower gastrointestinal bleeding: Impression: General surgery following Plan for colonoscopy in the morning Bowel prep per general surgery Anemia has been corrected to hemoglobin greater than 7 Continue to trend H&H every 8 Coags in a.m. Out of ICU (2) Antiphospholipid syndrome: Impression: On Xarelto for antiphospholipid syndrome, hematology/oncology recommend Xarelto for life. Holding Xarelto for now given acute bleed, will likely restart this after bleed is resolved
[2024-05-26 15:03] LABS: HCT - HEMATOCRIT 22.9 % (42.0-52.0); HGB - HEMOGLOBIN 7.4 g/dL (14.0-18.0)
--- NOTE | 2024-05-26 15:29 | OT Plan of Care ---
OT Plan of Care OT Plan of Care: Diagnosis Diagnosis ? GIB, low H&H Chief Complaint weakness Onset of Chief Complaint 1wk [employer]IVE Medical History (Updated 05/25/24 @ 15:31 by Virgil Ayoub DNP) Antiphospholipid syndrome Assessment Assessment Pt is a 84 y/o male adm with generalized weakness; episodes of bloody stool, and H&H of 3 .6/11/8. Transfused to appropriate levels. Work up for GIB cont with Scheduled colonoscopy planned for 05/26. 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 Cleared for therapy evaluation. Met supine in bed, communication difficult however able to respond consistently with Y/N questions. A&O to self and place only. Follows 1 step simple commands with heavy multisensory cues. R sided paralysis with significant flexor tone, UE greater then L LE. Noted swelling of R foot RN present for assessment. Pt performed supine to sit MAX-DEP x2 with extensive retropulsive tone. One seated EOB CG-MIN A to maintain sitting during assessment. MAX A gown change. Unable to assess OOB at this time 2/2 tone, fatigue, and weakness. DEP sit to supine back to bed, MOD A rolling R<>L for perineal care. Overall pt presents with decreased endurance, activity tolerance, strength, and ADL status. Will benefit from cont OT services during acute stay. Rec d/c to SNF at this time. Goals - Activities of Daily Living Improve Upper Extremity Minimal Assist Dressing to: Improve Lower Extremity Minimal Assist Dressing to: Improve Grooming/Hygiene to: Minimal Assist Improve Bathing to: Minimal Assist Improve Toileting to: Minimal Assist Plan Treatment Frequency 1x/day Duration Until discharge -Discharge Recommendations Discharge Location [facility] Transport Needs at Discharge [facility]
[2024-05-26] MEDS: SODIUM/POTASSIUM/MAG SULFATES 354 ML PREP KIT PO SCH (18:49)
[2024-05-26 22:18] LABS: HCT - HEMATOCRIT 23.5 % (42.0-52.0); HGB - HEMOGLOBIN 7.7 g/dL (14.0-18.0)
[2024-05-27 06:07] LABS: VBG PH 7.408 (7.31-7.41)
[2024-05-27 06:08] LABS: CALCIUM, IONIZED 1.13 mmol/L (1.09-1.30)
[2024-05-27 06:11] LABS: BASOPHILS % (AUTO) 0.3 %; EOSINOPHILS % (AUTO) 0.7 %; HCT - HEMATOCRIT 21.8 % (42.0-52.0); HGB - HEMOGLOBIN 7.1 g/dL (14.0-18.0); LYMPHOCYTES % (AUTO) 13.5 %; MEAN CORPUSCULAR HEMOGLOBIN 32.9 pg (27.0-31.0); MEAN CORPUSCULAR HGB CONC 32.6 g/dL (32.0-36.0); MEAN CORPUSCULAR VOLUME 100.9 fL (80.0-94.0); MEAN PLATELET VOLUME 13.7 fL (7.4-11.4); MONOCYTES % (AUTO) 4.4 %; NEUTROPHILS % (AUTO) 76.7 %; PLT - PLATELET COUNT 64 10^3/uL (130-450); RED BLOOD COUNT 2.16 10^6/uL (4.70-6.10)
[2024-05-27] MEDS: ACETAMINOPHEN 325 MG TABLET PO PRN (06:17)
[2024-05-27 06:22] LABS: CREATININE 0.8 mg/dL (0.6-1.3); MAGNESIUM 2.2 mg/dL (1.7-2.3); PHOSPHORUS 2.3 mg/dL (2.5-5.0); POTASSIUM 3.8 mmol/L (3.5-4.5)
[2024-05-27 06:39] LABS: ABNORMAL LYMPHS % (MANUAL) 0 %; WHITE BLOOD COUNT 9.1 x10^3/uL (4.8-10.8)
[2024-05-27 06:43] LABS: BAND NEUTROPHILS % (MANUAL) 5 %; DIFFERENTIAL COMMENT MANUAL DIFFERENTIAL; LYMPHOCYTES # (MANUAL) 1.1 10^3/uL (1.5-3.5); LYMPHOCYTES % (MANUAL) 12 %; METAMYELOCYTES % (MANUAL) 1 %; NEUTROPHILS # (MANUAL) 7.9 10^3/uL (1.5-6.6); PLATELET ESTIMATE, MANUAL DECREASED (<130,000) (NORMAL); PLATELET MORPHOLOGY NORMAL APPEARANCE (NORMAL); WBC MORPHOLOGY (MULTIPLE) NORMAL APPEARANCE (NORMAL)
[2024-05-27 06:48] LABS: PARTIAL THROMBOPLASTIN TIME 27.6 secs (24.9-33.3)
[2024-05-27 06:52] LABS: INR 1.9 (0.8-1.2); PT - PROTHROMBIN TIME 20.2 secs (9.9-12.6)
[2024-05-27] MEDS ORDERED: PROPOFOL 500 MG/50 ML 500 MG/50 ML VIAL ONE (13:12)
[2024-05-27] MEDS ORDERED: LIDOCAINE-MPF 2% 5 ML VIAL ONE (13:12)
--- NOTE | 2024-05-27 13:12 | ANESTHESIA PROCEDURE NOTE ---
Pre-Anesthesia VS, & Labs Diagnosis Surgical Diagnosis:: Lower GI bleed Procedure Procedure: Colonoscopy Vitals Vital Signs: Temp Pulse Resp BP Pulse Ox O2 Flow Rate 36.7 C 67 20 139/72 H 93 2 05/27/24 12:34 05/27/24 12:34 05/27/24 12:34 05/27/24 12:34 05/27/24 12:34 05/26/24 07:00 NPO Last Fluid Intake: clear liquids 1300 Lab Results Current Lab Results: Laboratory Tests 05/27/24 05:48: RBC Morph Micro Appear 1+ OVALOCYTES, PT 20.2 H, INR 1.9 H, APTT 27.6, VBG pH 7.408, Ionized Calcium 1.13, Sodium 143, Potassium 3.8, Chloride 111, Carbon Dioxide 23, Anion Gap 9.0, BUN 27 H, Creatinine 0.8, Estimated GFR (MDRD) 93, Glucose 97, Calcium 8.0 L, Phosphorus 2.3 L, Magnesium 2.2 05/27/24 05:48: RBC Morph Micro Appear 1+ HYPOCHROMASIA 05/27/24 05:48: WBC 9.1, RBC 2.16 L, Hgb 7.1 L, Hct 21.8 L, MCV 100.9 H, MCH 32.9 H, MCHC 32.6, RDW 21.0 H, Plt Count 64 L, MPV 13.7 H, Neut # (Auto) Not Reportable, Lymph # (Auto) Not Reportable, [place] # (Auto) Not Reportable, Eos # (Auto) Not Reportable, Baso # (Auto) Not Reportable, Absolute Nucleated RBC Not Reportable, Total Counted 100, Band Neuts % (Manual) 5, Abnorm Lymph % (Manual) 0, Metamyelocytes % 1 H, Nucleated RBC % Not Reportable, Neutrophils # (Manual) 7.9 H, Lymphocytes # (Manual) 1.1 L, Monocytes # (Manual) 0.0, Eosinophils # (Manual) 0.0, Basophils # (Manual) 0.0, Differential Comment MANUAL DIFFERENTIAL, WBC Morphology NORMAL APPEARANCE, Platelet Estimate DECREASED (<130,000), Platelet Morphology NORMAL APPEARANCE, RBC Morph Micro Appear 1+ ANISOCYTOSIS 05/26/24 22:11: Hgb 7.7 L, Hct 23.5 L 05/26/24 14:45: Hgb 7.4 L, Hct 22.9 L 05/26/24 06:27: RBC Morph Micro Appear 2+ MICROCYTOSIS, VBG pH 7.405, Ionized Calcium 1.12, Sodium 141, Potassium 4.0, Chloride 111, Carbon Dioxide 22, Anion Gap 8.0, BUN 41 H, Creatinine 1.2, Estimated GFR (MDRD) 58 L, Glucose 109 H, C alcium 7.9 L, Phosphorus 3.6, Magnesium 2.5 H 05/26/24 06:27: RBC Morph Micro Appear 1+ MACROCYTOSIS 05/26/24 06:27: WBC 7.0, RBC 2.19 L, Hgb 7.1 L, Hct 22.1 L, MCV 100.9 H, MCH 32.4 H, MCHC 32.1, RDW 21.0 H, Plt Count 90 L, MPV 13.5 H, Neut # (Auto) Not Reportable, Lymph # (Auto) Not Reportable, [place] # (Auto) Not Reportable, Eos # (Auto) Not Reportable, Baso # (Auto) Not Reportable, Absolute Nucleated RBC Not Reportable, Total Counted 100, Band Neuts % (Manual) 8, Reactive Lymphs % (Man) 1, Abnorm Lymph % (Manual) 0, Nucleated RBC % Not Reportable, Neutrophils # (Manual) 6.3, Lymphocytes # (Manual) 0.7 L, Monocytes # (Manual) 0.0, Eosinophils # (Manual) 0.0, Basophils # (Manual) 0.0, Differential Comment MANUAL DIFFERENTIAL, Manual Slide Review Indicated, Platelet Estimate DECREASED (<130,000), RBC Morph Micro Appear 4+ ANISOCYTOSIS 05/26/24 00:55: Hgb 6.4 L*, Hct 19.7 L* 05/25/24 18:59: Hgb 6.0 L*, Hct 19.1 L* 05/25/24 14:07: Blood Type Recheck A POSITIVE, Crossmatch IS Only See Detail 05/25/24 13:20: RBC Morph Micro Appear 2+ HYPOCHROMASIA, PT 24.2 H, INR 2.3 H, Sodium 142, Potassium 4.9 H, Chloride 110, Carbon Dioxide 23, Anion Gap 9.0, BUN 43 H, Creatinine 1.4 H, Estimated GFR (MDRD) 49 L, Glucose 121 H, Calcium 8.9, Total Bilirubin 0.7, AST 204 H, ALT 169 H, Alkaline Phosphatase 71, Total Protein 7.0, Albumin 3.7, Globulin 3.3, Albumin/Globulin Ratio 1.1, Lipase 20, Blood Type A POSITIVE, Antibody Screen NEGATIVE, Crossmatch IS Only See Detail 05/25/24 13:20: RBC Morph Micro Appear 2+ MACROCYTOSIS 05/25/24 13:20: WBC 8.9, RBC 1.02 L, Hgb 3.6 L*, Hct 11.8 L*, MCV 115.7 H, MCH 35.3 H, MCHC 30.5 L, RDW 23.9 H, Plt Count 103 L, MPV 14.1 H, Neut # (Auto) Not Reportable, Lymph # (Auto) Not Reportable, [place] # (Auto) Not Reportable, Eos # (Auto) Not Reportable, Baso # (Auto) Not Reportable, Absolute Nucleated RBC Not Reportable, Total Counted 100, Band Neuts % (Manual) 1, Abnorm Lymph % (Manual) 0, Nucleated RBC % Not Reportable, Neutrophils # (Manual) 7.1 H, Lymphocytes # (Manual) 1.3 L, Monocytes # (Manual) 0.3, Eosinophils # (Manual) 0.1, Basophils # (Manual) 0.1, Nucleated RBCs 1, Differential Comment MANUAL DIFFERENTIAL, Platelet Estimate DECREASED (<130,000), Platelet Morphology NORMAL APPEARANCE, RBC Morph Micro Appear 4+ ANISOCYTOSIS Lab results reviewed: Yes 05/27/24 05:48 05/27/24 05:48 Meds/Allgy Home Medications Ambulatory Orders Medication Instructions Recorded Confirmed aspirin 81 mg chewable tablet 81 mg PO DAILY 02/05/15 07/12/21 (Negrita Chewable Low Dose Aspirin) atorvastatin 10 mg tablet 20 mg PO DAILY 02/05/15 07/12/21 docusate sodium 100 mg capsule 200 mg PO BID PRN Constipation 02/05/15 07/12/21 (Stool Softener) sennosides 8.6 mg tablet (Senna 8.6 mg PO BID PRN Constipation 02/05/15 07/12/21 Lax) tamsulosin 0.4 mg capsule 0.4 mg PO DAILY PM 02/05/15 07/12/21 levetiracetam 1,000 mg tablet 1,000 mg PO BID 11/18/15 03/22/22 metoprolol tartrate 25 mg tablet 25 mg PO DAILY 03/10/15 07/12/21 rivaroxaban 20 mg tablet (Xarelto) 20 mg PO DAILY 11/03/15 07/12/21 acetaminophen 300 mg-codeine 30 mg 1 ea PO Q6HR PRN Pain 07/12/21 07/12/21 tablet sertraline 50 mg tablet 50 mg PO DAILY 07/12/21 07/12/21 Allergies Allergies Allergy/AdvReac Type Severity Reaction Status Date / Time No Known Drug Allergies Allergy Verified 05/25/24 13:07 [facility] Medical History Medical History Prostate cancer Cerebral vascular accident Aphasia Antiphospholipid syndrome Surgical History Surgical History History of prostatectomy Social History Social History Smoking Status: Never smoker Second hand tobacco smoke exposure: No Do you dip or chew tobacco?: No Do you vape?: No Patient requests smoking cessation consult: No Initiate information on smoking cessation: No Relationship: Spouse Level: Assisted Home Mobility Equipment: Wheelchair Do you feel safe in your home environment?: Yes Suffered physical, verbal, emotional, or financial abuse?: No History of Abuse: No ETOH Use: Frequency: Occasional Substance Use: denies use POLST Patient has POLST: Yes Anesthesia Exam (Expanded) Exam General: Alert and Cooperative Dental: WNL Mouth Openin Fingerbreadth (FB) Neck Mobility: Reduced Mallampati classification: IV Thyromental Distance: 4-6 cm Plan Plan Anesthesia Type: General and Total IV Consent for Procedure(s) Verified and Reviewed: Yes Code Status: Attempt Resuscitation ASA Classification ASA classification: 3-Severe systemic disease Is this case an emergency?: No
[2024-05-27] MEDS ORDERED: LIDOCAINE 1%-EPI 1:100000 20 ML MDV ONE (14:16)
--- NOTE | 2024-05-27 14:33 | PROVIDER PROGRESS NOTE ---
Progress Note Progress Note Progress Note: General Surgery Brief Procedure Note (see "Provation" for details) Preop Diagnosis: Hematochezia Postop Diagnosis: Sigmoid colitis with evidence of recent bleed; Internal hemorrhoids Procedure: Colonoscopy with biopsy of the sigmoid mucosa Recommendation: 1) Resume diet 2) If no rectal bleeding today, start DOAC tomorrow 3) If re-bleeding occurs and it is from the hemorrhoid tissue, ligation or banding will be offered. Sánchez White MD, FACS General Surgery Service
--- NOTE | 2024-05-27 14:49 | PROVIDER PROGRESS NOTE ---
Subjective Prog Note Date Prog Note Date: 05/27/24 Subjective Pt reports feeling: No change Current Medications Current Medications Current Medications: Current Medications Generic Name Dose Route Start Last Admin Trade Name Jessie PRN Reason Stop Dose Admin Acetaminophen 650 mg 05/25/24 15:17 05/27/24 06:17 Acetaminophen 325 Mg Tablet PO 650 mg Q4HR PRN Administration Pain 1 to 4, or Fever Acetaminophen 1,000 mg in 100 mls @ 400 mls/hr 05/26/24 02:27 05/26/24 02:55 Acetaminophen IV Infused Q6HR PRN Infusion FEVER > 100.5 F Levetiracetam 1,000 mg 05/25/24 21:00 05/27/24 09:53 Levetiracetam 250 Mg Tablet PO 1,000 mg BID FELICITA Administration Lorazepam 1 mg 05/25/24 18:32 05/25/24 19:01 Lorazepam 2 Mg/Ml Vial IVP 1 mg Q30M PRN Administration CIWA >8 Protocol Oxycodone HCl 5 mg 05/25/24 15:17 Oxycodone 5 Mg Tablet PO Q4HR PRN Pain 5 to 7 Sertraline HCl 50 mg 05/26/24 09:00 05/27/24 09:53 Sertraline 50 Mg Tablet PO 50 mg DAILY FELICITA Administration Sodium Chloride 10 ml 05/25/24 17:00 05/27/24 09:54 Sodium Chloride Flush 0.9% 10 Ml Syringe IVP 10 ml 0100,0900,1700 FELICITA Administration Sodium Chloride 10 ml 05/25/24 15:17 Sodium Chloride Flush 0.9% 10 Ml Syringe IVP PRN PRN NEEDED PER PROVIDER ORDERS Tamsulosin HCl 0.4 mg 05/25/24 21:00 05/26/24 21:50 Tamsulosin 0.4 Mg Capsule PO 0.4 mg NIGHTLY FELICITA Administration Objective Vital Signs/Intake & Output Reviewed Vital Signs: Yes Vital Signs: Vital Signs x48h Temp Pulse Resp BP Pulse Ox 05/27/24 14:26 36.6 C 65 14 108/66 92 05/27/24 12:34 36.7 C 67 20 139/72 H 93 05/27/24 08:04 36.8 C 70 20 140/66 H 94 Intake & Output: Intake & Output 05/24/24 05/25/24 05/26/24 02/04/25 23:59 23:59 23:59 23:59 Intake Total 2019 680 / 680 Output Total 379 / 379 1395 / 1395 1750 / 1750 Balance 1641 / 1641 -715 / -715 -1750 / -1750 Weight (kg) 97 kg 101.5 kg Objective General Appearance: positive No acute distress and Alert Eyes Bilateral: positive Normal inspection and PERRL ENT: positive ENT inspection nml Neck: positive No JVD Respiratory: positive Chest non-tender Cardiovascular: positive Regular rate & rhythm Abdomen: positive Non-tender Skin: positive Color nml Extremities: positive Pedal edema Neurologic/Psychiatric: positive Other (Answers yes/no questions) Lab Results 05/27/24 05:48 05/27/24 05:48 Other Labs: Lab Results x24hrs 05/27/24 05/27/24 05/27/24 Range/Units 05:48 05:48 05:48 WBC 9.1 (4.8-10.8) x10^3/uL RBC 2.16 L (4.70-6.10) 10^6/uL Hgb 7.1 L (14.0-18.0) g/dL Hct 21.8 L (42.0-52.0) % MCV 100.9 H (80.0-94.0) fL MCH 32.9 H (27.0-31.0) pg MCHC 32.6 (32.0-36.0) g/dL RDW 21.0 H (12.0-15.0) % Plt Count 64 L (130-450) 10^3/uL MPV 13.7 H (7.4-11.4) fL Neut # (Auto) Not Reportable Lymph # (Auto) Not Reportable [place] # (Auto) Not Reportable Eos # (Auto) Not Reportable Baso # (Auto) Not Reportable Absolute Nucleated RBC Not Reportable Total Counted 100 Band Neuts % (Manual) 5 (0 - 10) % Abnorm Lymph % (Manual) 0 % Metamyelocytes % 1 H ( - 0) % Nucleated RBC % Not Reportable Neutrophils # (Manual) 7.9 H (1.5-6.6) 10^3/uL Lymphocytes # (Manual) 1.1 L (1.5-3.5) 10^3/uL Monocytes # (Manual) 0.0 (0.0-1.0) 10^3/uL Eosinophils # (Manual) 0.0 (0-0.7) 10^3/uL Basophils # (Manual) 0.0 (0-0.1) 10^3/uL Differential Comment MANUAL DIFFERENTIAL WBC Morphology NORMAL APPEARANCE (NORMAL) Platelet Estimate DECREASED (<130,000) (NORMAL) Platelet Morphology NORMAL APPEARANCE (NORMAL) RBC Morph Micro Appear 1+ OVALOCYTES 1+ HYPOCHROMASIA 1+ ANISOCYTOSIS (NORMAL) PT 20.2 H (9.9-12.6) secs INR 1.9 H (0.8-1.2) APTT 27.6 (24.9-33.3) secs VBG pH 7.408 (7.31-7.41) Ionized Calcium 1.13 (1.09-1.30) mmol/L Sodium 143 (135-145) mmol/L Potassium 3.8 (3.5-4.5) mmol/L Chloride 111 (101-111) mmol/L Carbon Dioxide 23 (21-32) mmol/L Anion Gap 9.0 (6-13) BUN 27 H (6-20) mg/dL Creatinine 0.8 (0.6-1.3) mg/dL Estimated GFR (MDRD) 93 (>89) Glucose 97 (74-104) mg/dL Calcium 8.0 L (8.5-10.3) mg/dL Phosphorus 2.3 L (2.5-5.0) mg/dL Magnesium 2.2 (1.7-2.3) mg/dL Crossmatch IS Only 05/26/24 05/26/24 05/25/24 Range/Units 22:11 14:45 14:07 WBC (4.8-10.8) x10^3/uL RBC (4.70-6.10) 10^6/uL Hgb 7.7 L 7.4 L (14.0-18.0) g/dL Hct 23.5 L 22.9 L (42.0-52.0) % MCV (80.0-94.0) fL MCH (27.0-31.0) pg MCHC (32.0-36.0) g/dL RDW (12.0-15.0) % Plt Count (130-450) 10^3/uL MPV (7.4-11.4) fL Neut # (Auto) Lymph # (Auto) [place] # (Auto) Eos # (Auto) Baso # (Auto) Absolute Nucleated RBC Total Counted Band Neuts % (Manual) (0 - 10) % Abnorm Lymph % (Manual) % Metamyelocytes % ( - 0) % Nucleated RBC % Neutrophils # (Manual) (1.5-6.6) 10^3/uL Lymphocytes # (Manual) (1.5-3.5) 10^3/uL Monocytes # (Manual) (0.0-1.0) 10^3/uL Eosinophils # (Manual) (0-0.7) 10^3/uL Basophils # (Manual) (0-0.1) 10^3/uL Differential Comment WBC Morphology (NORMAL) Platelet Estimate (NORMAL) Platelet Morphology (NORMAL) RBC Morph Micro Appear (NORMAL) PT (9.9-12.6) secs INR (0.8-1.2) APTT (24.9-33.3) secs VBG pH (7.31-7.41) Ionized Calcium (1.09-1.30) mmol/L Sodium (135-145) mmol/L Potassium (3.5-4.5) mmol/L Chloride (101-111) mmol/L Carbon Dioxide (21-32) mmol/L Anion Gap (6-13) BUN (6-20) mg/dL Creatinine (0.6-1.3) mg/dL Estimated GFR (MDRD) (>89) Glucose (74-104) mg/dL Calcium (8.5-10.3) mg/dL Phosphorus (2.5-5.0) mg/dL Magnesium (1.7-2.3) mg/dL Crossmatch IS Only See Detail Assessment/Plan Problem List (1) Acute lower gastrointestinal bleeding: Impression: General surgery following Anemia has been corrected to hemoglobin greater than 7 Continue to trend H&H every 8 05/27/2024:Colonoscopy today with general surgery, recommends holding overnight to continue to trend hemoglobins, likely DC in a.m. to SNF (2) Antiphospholipid syndrome: Impression: On Xarelto for antiphospholipid syndrome, hematology/oncology recommend Xarelto for life. Holding Xarelto for now given acute bleed, will likely restart this after bleed is resolved 05/27/2024: Plan to resume Xarelto tomorrow
--- NOTE | 2024-05-27 16:25 | ANESTHESIA POST OP EVALUATION ---
Anesthesia Post Eval Post Anesthesia Eval Vitals: Last Vital Signs Temp 36.6 C 05/27/24 16:16 Pulse 65 05/27/24 16:16 Resp 20 05/27/24 16:16 BP 147/74 H 05/27/24 16:16 Pulse Ox 96 05/27/24 16:16 O2 Flow Rate 2 05/26/24 07:00 CV Function Including HR & BP: Stable Pain Control: Satisfactory Nausea & Vomiting: Negative Mental Status: Baseline Respiratory Status: Airway Patent Hydration Status: Satisfactory Anesthesia Complications: None
--- NOTE | 2024-05-27 16:27 | PHARMACY PROGRESS NOTE ---
Best Possible Medication History Admit Date and Time: 05/25/24 227375 Home Medications Medication Instructions Recorded Confirmed Type docusate sodium 100 mg capsule 100 mg PO BID Constipation 02/05/15 05/27/24 History (Stool Softener) sennosides 8.6 mg tablet (Senna 8.6 mg PO DAILY Constipation 02/05/15 05/27/24 History Lax) tamsulosin 0.4 mg capsule 0.4 mg PO QPM 02/05/15 05/27/24 History levetiracetam 1,000 mg tablet 1,000 mg PO QAM 03/10/15 05/27/24 History rivaroxaban 20 mg tablet (Xarelto) 20 mg PO QDDINNER 11/03/15 05/27/24 History acetaminophen 500 mg tablet 500 - 1,000 mg PO BID PRN pain 05/27/24 05/27/24 History baclofen 5 mg tablet 5 mg PO TID 05/27/24 05/27/24 History indomethacin 75 mg 75 mg PO BID 05/27/24 05/27/24 History capsule,extended release levetiracetam 500 mg tablet 500 mg PO QPM 05/27/24 05/27/24 History levothyroxine 25 mcg tablet 25 mcg PO QDAC 05/27/24 05/27/24 History metoprolol succinate 25 mg 25 mg PO DAILY 05/27/24 05/27/24 History tablet,extended release 24 hr polyethylene glycol 3350 17 17 g PO DAILY PRN constipation 05/27/24 05/27/24 History gram/dose oral powder (Miralax) Processed by: Pharmacy Medications reviewed in ED?: No Medication History completed: Yes Patient Interview: Pt unable to participate Secondary Source(s): Spouse/Significant other and Insurance records [facility] Statement: As the person ultimately responsible for medication therapy, providers are able to order a medication from an existing home medication list in [facility] via the "Reconcile Routine" prior to Confirmation of that medication by administrative support manager. Such practice is discouraged except when the physician, in their clinical judgment, deems that a medical need exists for a medication without regard to previous use.
[2024-05-28 06:05] LABS: BASOPHILS % (AUTO) 0.3 %; EOSINOPHILS % (AUTO) 1.1 %; HCT - HEMATOCRIT 24.1 % (42.0-52.0); HGB - HEMOGLOBIN 7.8 g/dL (14.0-18.0); LYMPHOCYTES % (AUTO) 14.6 %; MEAN CORPUSCULAR HEMOGLOBIN 32.9 pg (27.0-31.0); MEAN CORPUSCULAR HGB CONC 32.4 g/dL (32.0-36.0); MEAN CORPUSCULAR VOLUME 101.7 fL (80.0-94.0); MEAN PLATELET VOLUME 13.5 fL (7.4-11.4); MONOCYTES % (AUTO) 3.9 %; NEUTROPHILS % (AUTO) 75.4 %; PLT - PLATELET COUNT 65 10^3/uL (130-450); RED BLOOD COUNT 2.37 10^6/uL (4.70-6.10); RED CELL DISTRIBUTION WIDTH 20.4 % (12.0-15.0)
[2024-05-28 06:17] LABS: CALCIUM 7.7 mg/dL (8.5-10.3); CREATININE 0.7 mg/dL (0.6-1.3); PHOSPHORUS 1.8 mg/dL (2.5-5.0); POTASSIUM 3.5 mmol/L (3.5-4.5)
[2024-05-28 06:29] LABS: WHITE BLOOD COUNT 6.9 x10^3/uL (4.8-10.8)
[2024-05-28 06:30] LABS: ABNORMAL LYMPHS % (MANUAL) 0 %
[2024-05-28 06:37] LABS: CALCIUM, IONIZED 1.1 mmol/L (1.09-1.30); VBG PH 7.497 (7.31-7.41)
[2024-05-28 06:45] LABS: BAND NEUTROPHILS % (MANUAL) 8 %; LYMPHOCYTES # (MANUAL) 1.2 10^3/uL (1.5-3.5); LYMPHOCYTES % (MANUAL) 17 %; NEUTROPHILS # (MANUAL) 5.7 10^3/uL (1.5-6.6); NUCLEATED RBC (MANUAL) 1 %
[2024-05-28 06:46] LABS: DIFFERENTIAL COMMENT MANUAL DIFFERENTIAL; PLATELET ESTIMATE, MANUAL DECREASED (<130,000) (NORMAL); PLATELET MORPHOLOGY NORMAL APPEARANCE (NORMAL); WBC MORPHOLOGY (MULTIPLE) NORMAL APPEARANCE (NORMAL)
[2024-05-28] MEDS: APIXABAN 5 MG TABLET PO SCH (10:41)
[2024-05-28] MEDS: oxyCODONE 5 MG TABLET PO PRN (14:41)
[2024-05-28 15:11] LABS: THYROID STIMULATING HORMONE 2.08 uIU/mL (0.34-5.60)
--- NOTE | 2024-05-28 16:07 | XRAY Report ---
PROCEDURE: XR Chest 1V INDICATIONS: a fib TECHNIQUE: One view of the chest was acquired. COMPARISON: CT chest angiogram 10/19/2017 FINDINGS: Surgical changes and devices: None. Lungs and pleura: No pleural effusions or pneumothorax. No consolidation. Mediastinum: Mediastinal contours appear normal. Heart size is normal. Bones and chest wall: No suspicious bony lesions. Overlying soft tissues appear unremarkable. IMPRESSION: No acute cardiopulmonary process. Reviewed by: Gian Lopez MD on 05/28/2024 4:06 PM PST Approved by: Gian Lopez MD on 05/28/2024 4:06 PM [facility] Station ID: [id number]
--- NOTE | 2024-05-28 16:19 | PROVIDER PROGRESS NOTE ---
Subjective Prog Note Date Prog Note Date: 05/28/24 Subjective Subjective: aphasic. discussed diagnoses with his spouse, who was at bedside prior to developement of a fib. She is concerned about potential of recurrent bleeding, wants him to get stronger and be able to transition from rehab to home. Current Medications Current Medications Current Medications: Current Medications Generic Name Dose Route Start Last Admin Trade Name Freq PRN Reason Stop Dose Admin Acetaminophen 650 mg 05/25/24 15:17 05/28/24 10:55 Acetaminophen 325 Mg Tablet PO 650 mg Q4HR PRN Administration Pain 1 to 4, or Fever Apixaban 5 mg 05/28/24 10:30 05/28/24 10:41 Apixaban 5 Mg Tablet PO 5 mg BID FELICITA Administration Acetaminophen 1,000 mg in 100 mls @ 400 mls/hr 05/26/24 02:27 05/26/24 02:55 Acetaminophen IV Infused Q6HR PRN Infusion FEVER > 100.5 F Levetiracetam 1,000 mg 05/25/24 21:00 05/28/24 08:33 Levetiracetam 250 Mg Tablet PO 1,000 mg BID FELICITA Administration Lorazepam 1 mg 05/25/24 18:32 05/25/24 19:01 Lorazepam 2 Mg/Ml Vial IVP 1 mg Q30M PRN Administration CIWA >8 Protocol Oxycodone HCl 5 mg 05/25/24 15:17 05/28/24 14:41 Oxycodone 5 Mg Tablet PO 5 mg Q4HR PRN Administration Pain 5 to 7 Sertraline HCl 50 mg 05/26/24 09:00 05/28/24 08:33 Sertraline 50 Mg Tablet PO 50 mg DAILY FELICITA Administration Sodium Chloride 10 ml 05/25/24 17:00 05/28/24 08:33 Sodium Chloride Flush 0.9% 10 Ml Syringe IVP 10 ml 0100,0900,1700 FELICITA Administration Sodium Chloride 10 ml 05/25/24 15:17 Sodium Chloride Flush 0.9% 10 Ml Syringe IVP PRN PRN NEEDED PER PROVIDER ORDERS Tamsulosin HCl 0.4 mg 05/25/24 21:00 05/27/24 20:14 Tamsulosin 0.4 Mg Capsule PO 0.4 mg NIGHTLY FELICITA Administration Objective Vital Signs/Intake & Output Reviewed Vital Signs: Yes Vital Signs: Vital Signs x48h Temp Pulse Resp BP Pulse Ox 05/28/24 15:34 376.6 C H 87 20 140/79 H 93 05/28/24 13:39 37.2 C 92 16 122/71 94 Intake & Output: Intake & Output 05/25/24 05/26/24 05/27/24 05/28/24 23:59 23:59 23:59 23:59 Intake Total 2019 680 / 680 570 / 570 520 / 520 Output Total 379 / 379 1395 / 1395 2250 / 2250 750 / 750 Balance 1641 / 1641 -715 / -715 -1680 / -1680 -230 / -230 Weight (kg) 97 kg 101.5 kg 101.5 kg Objective General Appearance: positive No acute distress and Alert Eyes Bilateral: positive Normal inspection and PERRL ENT: positive ENT inspection nml Neck: positive No JVD Respiratory: positive Chest non-tender Cardiovascular: positive Regular rate & rhythm Abdomen: positive Non-tender Skin: positive Color nml Extremities: positive Pedal edema Neurologic/Psychiatric: positive Other (Answers yes/no questions) Lab Results 05/28/24 05:39 05/28/24 05:39 Other Labs: Lab Results x24hrs 05/28/24 05/28/24 05/28/24 Range/Units 14:33 14:30 05:39 WBC (4.8-10.8) x10^3/uL RBC (4.70-6.10) 10^6/uL Hgb (14.0-18.0) g/dL Hct (42.0-52.0) % MCV (80.0-94.0) fL MCH (27.0-31.0) pg MCHC (32.0-36.0) g/dL RDW (12.0-15.0) % Plt Count (130-450) 10^3/uL MPV (7.4-11.4) fL Neut # (Auto) Lymph # (Auto) [place] # (Auto) Eos # (Auto) Baso # (Auto) Absolute Nucleated RBC Total Counted Band Neuts % (Manual) (0 - 10) % Abnorm Lymph % (Manual) % Nucleated RBC % Neutrophils # (Manual) (1.5-6.6) 10^3/uL Lymphocytes # (Manual) (1.5-3.5) 10^3/uL Monocytes # (Manual) (0.0-1.0) 10^3/uL Eosinophils # (Manual) (0-0.7) 10^3/uL Basophils # (Manual) (0-0.1) 10^3/uL Nucleated RBCs % Differential Comment WBC Morphology (NORMAL) Platelet Estimate (NORMAL) Platelet Morphology (NORMAL) RBC Morph Micro Appear 1+ OVALOCYTES (NORMAL) VBG pH 7.497 H (7.31-7.41) Ionized Calcium 1.10 (1.09-1.30) mmol/L Sodium 140 (135-145) mmol/L Potassium 3.5 (3.5-4.5) mmol/L Chloride 108 (101-111) mmol/L Carbon Dioxide 24 (21-32) mmol/L Anion Gap 8.0 (6-13) BUN 21 H (6-20) mg/dL Creatinine 0.7 (0.6-1.3) mg/dL Estimated GFR (MDRD) 108 (>89) Glucose 96 (74-104) mg/dL Calcium 7.7 L (8.5-10.3) mg/dL Phosphorus 1.8 L (2.5-5.0) mg/dL Magnesium 2.0 (1.7-2.3) mg/dL Troponin I High Sens 19.8 H* (2.3-19.7) ng/L B-Natriuretic Peptide 248 H (5-100) pg/mL TSH 2.08 (0.34-5.60) uIU/mL 05/28/24 05/28/24 Range/Units 05:39 05:39 WBC 6.9 (4.8-10.8) x10^3/uL RBC 2.37 L (4.70-6.10) 10^6/uL Hgb 7.8 L (14.0-18.0) g/dL Hct 24.1 L (42.0-52.0) % MCV 101.7 H (80.0-94.0) fL MCH 32.9 H (27.0-31.0) pg MCHC 32.4 (32.0-36.0) g/dL RDW 20.4 H (12.0-15.0) % Plt Count 65 L (130-450) 10^3/uL MPV 13.5 H (7.4-11.4) fL Neut # (Auto) Not Reportable Lymph # (Auto) Not Reportable [place] # (Auto) Not Reportable Eos # (Auto) Not Reportable Baso # (Auto) Not Reportable Absolute Nucleated RBC Not Reportable Total Counted 100 Band Neuts % (Manual) 8 (0 - 10) % Abnorm Lymph % (Manual) 0 % Nucleated RBC % Not Reportable Neutrophils # (Manual) 5.7 (1.5-6.6) 10^3/uL Lymphocytes # (Manual) 1.2 L (1.5-3.5) 10^3/uL Monocytes # (Manual) 0.0 (0.0-1.0) 10^3/uL Eosinophils # (Manual) 0.0 (0-0.7) 10^3/uL Basophils # (Manual) 0.0 (0-0.1) 10^3/uL Nucleated RBCs 1 % Differential Comment MANUAL DIFFERENTIAL WBC Morphology NORMAL APPEARANCE (NORMAL) Platelet Estimate DECREASED (<130,000) (NORMAL) Platelet Morphology NORMAL APPEARANCE (NORMAL) RBC Morph Micro Appear 1+ HYPOCHROMASIA 1+ ANISOCYTOSIS (NORMAL) VBG pH (7.31-7.41) Ionized Calcium (1.09-1.30) mmol/L Sodium (135-145) mmol/L Potassium (3.5-4.5) mmol/L Chloride (101-111) mmol/L Carbon Dioxide (21-32) mmol/L Anion Gap (6-13) BUN (6-20) mg/dL Creatinine (0.6-1.3) mg/dL Estimated GFR (MDRD) (>89) Glucose (74-104) mg/dL Calcium (8.5-10.3) mg/dL Phosphorus (2.5-5.0) mg/dL Magnesium (1.7-2.3) mg/dL Troponin I High Sens (2.3-19.7) ng/L B-Natriuretic Peptide (5-100) pg/mL TSH (0.34-5.60) uIU/mL Assessment/Plan Problem List (1) Atrial fibrillation: Impression: This morning on telemetry monitoring showed atrial fibrillation. This is new. He does not have a history of atrial fibrillation. Patient spontaneously converted back into sinus rhythm on telemetry later that afternoon. I held his discharge due to this. I have restarted his DOAC this morning and will continue that. I will continue telemetry monitoring. I have checked troponin which is negative and TSH which is also normal. EKG was ordered but not done for several hours and in the interim the patient converted back to sinus rhythm. I considered doing procainamide infusion for correction of his arrhythmia but that was held when he converted back to sinus. I will start him on metoprolol tartrate 12.5 mg twice daily. He has had occasional tachycardia this admission up into the 120s with activity. This is the first time we have identified atrial fibrillation on the monitor (2) Acute lower gastrointestinal bleeding: Impression: General surgery following Anemia has been corrected to hemoglobin greater than 7 05/27/2024:Colonoscopy today with general surgery, recommends holding overnight to continue to trend hemoglobins 05/28/2024: Colonoscopy shows sigmoid colitis with evidence of recent bleed and internal hemorrhoids. DOAC started in the morning of 05/28/2024. I will continue to observe the patient for recurrent GI bleeding. The intention was to discharge him to long term this afternoon, however he developed atrial fibrillation and this has delayed his discharge. (3) Antiphospholipid syndrome: Impression: On Xarelto for antiphospholipid syndrome, hematology/oncology recommend Xarelto for life. He now has the additional indication of paroxysmal atrial fibrillation. He is on Xarelto at home. He was started back on Eliquis here. Given his development of atrial fibrillation I am also checking for development of DVT. Bilateral lower extremity duplex is pending. I have spent 55 minutes in the care of this patient today. This includes time [id number], review and ordering of diagnostic imaging and laboratory studies. Monitoring the patient's signs symptoms, evaluation of medication effectiveness and patient's response to treatment.
--- NOTE | 2024-05-28 21:20 | Ultrasound Report ---
PROCEDURE: US Venous Duplex BL INDICATIONS: Wendy Walters MD TECHNIQUE: Real-time imaging, as well as color and pulse Doppler interrogation, were performed of the deep veins of both legs from the inguinal ligament to the popliteal fossa. Attempted visualization of the calf veins was performed. COMPARISON: 04/30/2017 FINDINGS: Extensive intraluminal filling defects are noted throughout right superficial femoral vein. Right sup erficial femoral vein is poorly compressible and show poor respiratory variation and augmentation. A right-sided popliteal cyst is seen measures 3.9 x 1.5 x 5.4 cm in size. The left lower extremity deep veins are normally compressible, and free of intraluminal thrombus. [place] and pulse Doppler demonstrate normal phasic intravascular flow. There is normal augmentation res ponse to distal compression maneuver. A left-sided popliteal cyst is seen measures 2.5 x 0.5 x 1.6 cm in size. IMPRESSION: 1. Occlusive venous thrombosis involving right superficial femoral vein. 2. No evidence of deep venous thrombosis in visualized left lower extremity veins. 3. Bilateral popliteal cysts as above. Reviewed by: Edgard Shea MD on 05/28/2024 9:18 PM PST Approved by: Edgard Shea MD on 05/28/2024 9:18 PM PST Station ID: [id number]
[2024-05-28] MEDS: METOPROLOL TARTRATE 25 MG TABLET PO SCH (21:37)
[2024-05-29 05:13] VITALS: TEMP 99.3
[2024-05-29 06:16] LABS: BASOPHILS % (AUTO) 0.4 %; EOSINOPHILS % (AUTO) 1.5 %; HGB - HEMOGLOBIN 8.2 g/dL (14.0-18.0); LYMPHOCYTES % (AUTO) 16.6 %; MEAN CORPUSCULAR HEMOGLOBIN 32.4 pg (27.0-31.0); MEAN CORPUSCULAR HGB CONC 31.5 g/dL (32.0-36.0); MEAN CORPUSCULAR VOLUME 102.8 fL (80.0-94.0); MONOCYTES % (AUTO) 6.2 %; NEUTROPHILS % (AUTO) 70.1 %; PLT - PLATELET COUNT 81 10^3/uL (130-450); RED BLOOD COUNT 2.53 10^6/uL (4.70-6.10); RED CELL DISTRIBUTION WIDTH 19.3 % (12.0-15.0)
[2024-05-29 06:31] LABS: CALCIUM 7.8 mg/dL (8.5-10.3); CREATININE 0.7 mg/dL (0.6-1.3); POTASSIUM 3.5 mmol/L (3.5-4.5)
[2024-05-29 06:42] LABS: WHITE BLOOD COUNT 6.5 x10^3/uL (4.8-10.8)
[2024-05-29 06:59] LABS: ABNORMAL LYMPHS % (MANUAL) 1 %; BAND NEUTROPHILS % (MANUAL) 2 %; EOSINOPHILS # (MANUAL) 0.3 10^3/uL (0-0.7); LYMPHOCYTES # (MANUAL) 0.8 10^3/uL (1.5-3.5); LYMPHOCYTES % (MANUAL) 12 %; METAMYELOCYTES % (MANUAL) 1 %; MONOCYTES # (MANUAL) 0.1 10^3/uL (0.0-1.0); MYELOCYTES % (MANUAL) 1 %; NEUTROPHILS # (MANUAL) 5.1 10^3/uL (1.5-6.6); PROMYELOCYTES % (MANUAL) 1 %
[2024-05-29 07:00] LABS: DIFFERENTIAL COMMENT MANUAL DIFFERENTIAL; PLATELET ESTIMATE, MANUAL DECREASED (<130,000) (NORMAL)
[2024-05-29 08:01] VITALS: BP 141/70; O2SAT 94
[2024-05-29] MEDS: MULTIVITAMIN W/MINERALS TABLET PO SCH (12:14)
--- NOTE | 2024-05-29 12:51 | Discharge Summary ---
"Discharge Summary Admit Date: 05/25/24 Discharge Date: 05/29/24 Discharging Provider: Opal Tony PA-C Primary Care Provider: Kennedy Maloney MD Code Status: Attempt Resuscitation Discharge Facility Name: [facility]. DIAGNOSES Discharge Diagnoses with Status of Each Condition: Acute lower GI bleed requiring transfusion due to sigmoid colitis with internal hemorrhoids also seen. Resolved. Paroxysmal atrial fibrillation. Treated. Antiphospholipid syndrome, history. Treated. History of CVA, Present on admission. History of prostate cancer, Present on admission. Hypothyroidism, Present on admission. HPI History of Present Illness: 84-year-old male with remote history of stroke with chronic aphasia and left- sided deficits who presented to the hospital with generalized weakness. He originally presented 2 days ago, and then left without intervention. He was weak enough today that his was unable to get him out of bed. His reports that he has been having blood in his stools. He takes Xarelto, last dose the night of 05/23/2024 In the ER, he was noted to have a hemoglobin of 3.6, hematocrit 11.8. General surgery was contacted by ER provider, who recommends general surgery consultation for possible colonoscopy after his Xarelto clears from his system. Hospitalist was contacted for admission for acute blood loss anemia CONSULTS | PROCEDURES Consultations: Dr. White, general surgery. Procedures: Colonoscopy showing sigmoid colitis without evidence of recent bleed and internal hemorrhoids. Bilateral lower extremity venous duplex showed occlusive venous thrombus involving the right superficial vein No evidence of deep venous thrombosis in visualized left lower extremity veins. 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 I am suspicious that he may have a history of atrial fibrillation as he is on metoprolol. Patient spontaneously converted back into sinus rhythm on telemetry later that afternoon. I held his discharge due to this. I have restarted his DOAC and will continue that. I have checked troponin which is negative and TSH which is also normal.I would recommend cardiology follow-up in the outpatient setting. I would also recommend echocardiogram. This was ordered while the patient was here but was not able to be done. EKG was ordered but not done for several hours and in the interim the patient converted back to sinus rhythm. I considered doing procainamide infusion for correction of his arrhythmia but that was held when he converted back to sinus. (2) Acute lower gastrointestinal bleeding: Anemia has been corrected to hemoglobin greater than 7 05/27/2024:Colonoscopy today with general surgery, recommends holding overnight to continue to trend hemoglobins 05/28/2024: Colonoscopy shows sigmoid colitis with evidence of recent bleed and internal hemorrhoids. DOAC started in the morning of 05/28/2024. I will continue to observe the patient for recurrent GI bleeding. The intention was to discharge him to [facility] that afternoon, however he developed atrial fibrillation and this has delayed his discharge. Patient did not have any evidence of GI bleeding after restarting DOAC. (3) Antiphospholipid syndrome: Impression: On Xarelto for antiphospholipid syndrome, hematology/oncology recommend Xarelto for life. He now has the additional indication of paroxysmal atrial fibrillation. He is on Xarelto at home. He was started back on Eliquis here. Given his development of atrial fibrillation I am also checking for development of DVT. 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 ALLERGIES Allergies Allergy/AdvReac Type Severity Reaction Status Date / Time No Known Drug Allergies Allergy Verified 05/25/24 13:07 MEDICATIONS Ambulatory Orders Medication Instructions Recorded Confirmed ginkgo biloba 40 mg tablet 40 mg PO DAILY 05/28/24 05/28/24 acetaminophen 500 mg tablet 500 - 1,000 mg (1 - 2 x 500 mg) PO 05/29/24 05/27/24 BID PRN pain #60 tabs ascorbic acid (vitamin C) 500 mg 500 mg PO DAILY #30 tabs 05/29/24 05/28/24 tablet (C-500) baclofen 5 mg tablet 5 mg PO TID #90 tabs 05/29/24 05/27/24 docusate sodium 100 mg capsule 100 mg PO BID Constipation #60 caps 05/29/24 05/27/24 (Stool Softener) levetiracetam 1,000 mg tablet 1,000 mg PO QAM #30 tabs 05/29/24 05/27/24 levothyroxine 25 mcg tablet 25 mcg PO QDAC #30 tabs 05/29/24 05/27/24 metoprolol succinate 25 mg 25 mg PO DAILY #30 tabs 05/29/24 05/27/24 tablet,extended release 24 hr [id number] 1 tab PO DAILYWM #30 tabs 05/29/24 fumarate 19 mg-folic acid 400 mcg tablet (Therapeutic-M) polyethylene glycol 3350 17 17 g PO DAILY PRN constipation 05/29/24 05/27/24 gram/dose oral powder (Miralax) #238 grams rivaroxaban 20 mg tablet (Xarelto) 20 mg PO QDDINNER #30 tabs 05/29/24 05/27/24 sennosides 8.6 mg tablet (Senna 8.6 mg PO DAILY Constipation #60 05/29/24 05/27/24 Lax) tabs sertraline 50 mg tablet 50 mg PO DAILY #30 tabs 05/29/24 tamsulosin 0.4 mg capsule 0.4 mg PO QPM #30 caps 05/29/24 05/27/24 PHYSICAL EXAM AT DISCHARGE Physical Exam Other/Comments: General Appearance: positive No acute distress and Alert Eyes Bilateral: positive Normal inspection and PERRL ENT: positive ENT inspection nml Neck: positive No JVD Respiratory: positive Chest non-tender Cardiovascular: positive Regular rate & rhythm, not irregularly irregular. no murmur Abdomen: positive Non-tender Skin: positive Color nml Extremities: positive Pedal edema Neurologic/Psychiatric: positive Other (Answers yes/no questions) LABS 05/29/24 05:51 05/29/24 05:51 FOLLOW UP Follow Up: PCP Dr Maloney, Dr White, for followup of pathology on sigmoid colon biopsy. TIME SPENT Time Spent in Discharge (Minutes): 45 Discharge Plan Discharge Patient Disposition: [facility] DC/Xfer Condition: Good Medically Cleared Date:: 05/29/24 Prescriptions: New sertraline 50 mg Tablet 50 mg PO DAILY Qty: 30 0RF Therapeutic-M 19 mg iron- 400 mcg Tablet 1 tab PO DAILYWM Qty: 30 0RF Continued ginkgo biloba 40 mg tablet 40 mg PO DAILY Rx Instructions: give with meal/snack sennosides [Senna Lax] 8.6 MG tablet 8.6 mg PO DAILY Qty: 60 0RF docusate sodium [Stool Softener] 100 MG capsule 100 mg PO BID Qty: 60 0RF tamsulosin 0.4 MG capsule 0.4 mg PO QPM Qty: 30 0RF levetiracetam 1,000 MG tablet 1,000 mg PO QAM Qty: 30 0RF Xarelto 20 MG tablet 20 mg PO QDDINNER Qty: 30 0RF Patient Comments: 11/27/16 RF #30 x 11 KARISHMA/. 11/03/15 New RX. #30 RF x 12. MC/ds baclofen 5 mg tablet 5 mg PO TID Qty: 90 0RF levothyroxine 25 mcg tablet 25 mcg PO QDAC Qty: 30 0RF Patient Comments: take 1 tablet by mouth once daily metoprolol succinate 25 mg tablet extended release 24 hr 25 mg PO DAILY Qty: 30 0RF Patient Comments: take 1 tablet by mouth once daily polyethylene glycol 3350 [Miralax] 17 gram/dose powder 17 g PO DAILY PRN (Reason: constipation) Qty: 238 0RF acetaminophen 500 mg tablet 500 - 1,000 mg PO BID PRN (Reason: pain) Qty: 60 0RF ascorbic acid (vitamin C) [C-500] 500 mg tablet 500 mg PO DAILY Qty: 30 0RF Discontinued levetiracetam 500 mg tablet 500 mg PO QPM Patient Comments: take 1 tablet by mouth once daily indomethacin 75 mg capsule, extended release 75 mg PO BID Patient Comments: take 1 capsule by mouth twice a day PLEASE TRY TO MINIMIZE USE Brain Elevate 1 cap PO DAILY Natto-Serrazime 1 cap PO DAILY Activity Restrictions: Activity as Tolerated Diet: Regular Health Concerns: You are an 84-year-old male who came into the hospital for confusion. You had been having some blood in your bowel movements for several days. You were very weak and unable to get out of bed and your was unable to care for you at home. You have to take blood thinners due to your history of antiphospholipid antibody syndrome. Not taking blood thinners could cause problems with clots in your body. This is at odds with the problem that you are having with GI bleeding. You came into the hospital and were treated with blood transfusions. You then received a colonoscopy. At the time of the colonoscopy the surgeon did not see any active bleeding, however there was irritation in the sigmoid colon. There is also hemorrhoids but as long as these do not bleed again there is no need to intervene upon them. At the time of your colonoscopy Dr. White took a biopsy of your sigmoid colon. The results of that biopsy have not been returned. I will place contact information for Dr. White's office in your discharge instructions. I would recommend following up with Dr. Horan regarding the pathology result and any further recommendations for follow-up. On the day prior to discharge we restarted your anticoagulation and you have not had any further rectal bleeding. That is good news and there is reason to think that this will not happen again. I would recommend that you not continue to take indomethacin as this can cause irritation of the gastrointestinal tract. While you were here you had an episode of atrial fibrillation. The treatment for atrial fibrillation is anticoagulation which is something you are already getting. Additionally patients are placed on metoprolol to help keep the heart rate controlled. You are also getting this medication. I would recommend that you continue the metoprolol. Your heart rate went back out of A-fib while you were here spontaneously. While you were here you also had an ultrasound on your bilateral lower extremities that does show old clot in your right superficial femoral vein. The treatment for this is anticoagulation and you are already on this treatment. You are discharging to [facility] for [facility] re[facility]. The goals of this rehab is to get you back to the level where you can continue to live at home with your . As for changes in your medication I am recommending that you stop indomethacin., Otherwise medication should continue as previously Care Plan Goals: Get stronger and transition home again at baseline level of function. Assessment: Lower GI bleeding causing anemia, requiring transfusion. Plan of Treatment: resume anticoagulation, too risky not to do so. seek medical care if you have any blood in your stools. Print Language: Yoruba Patient Instructions: Surgery Anesthesia After Follow-up Care: Sánchez White MD [Provider Admit Priv/Credential] -"
== END 2024-05-29 14:33 | DRG 392 ==
LOC: ED 13:00 → ICU 14:57 → MS3 05-26 10:08
PROVIDERS: ADMIT Nurse Practitioner Acute Care; ATTEND Nurse Practitioner Acute Care
DX: K92.2 Gastrointestinal hemorrhage, unspecified; Z79.82 Long term (current) use of aspirin; I69.320 Aphasia following cerebral infarction; Z79.899 Other long term (current) drug therapy; Z79.01 Long term (current) use of anticoagulants; I69.354 Hemiplegia and hemiparesis following cerebral infarction affecting left non-dominant side; I48.0 Paroxysmal atrial fibrillation; E03.9 Hypothyroidism, unspecified; Z74.01 Bed confinement status; D62 Acute posthemorrhagic anemia; D64.9 Anemia, unspecified; E87.5 Hyperkalemia; I82.411 Acute embolism and thrombosis of right femoral vein; K52.89 Other specified noninfective gastroenteritis and colitis; K92.1 Melena; Z85.46 Personal history of malignant neoplasm of prostate; K64.2 Third degree hemorrhoids; D68.61 Antiphospholipid syndrome; I49.3 Ventricular premature depolarization; Z79.890 Hormone replacement therapy

== ENCOUNTER 2024-06-15 14:13 | Inpatient (IN) ==
[2024-06-15 14:54] LABS: BASOPHILS % (AUTO) 0.2 %; EOSINOPHILS % (AUTO) 0.5 %; HCT - HEMATOCRIT 23.3 % (42.0-52.0); HGB - HEMOGLOBIN 7.7 g/dL (14.0-18.0); MEAN CORPUSCULAR HEMOGLOBIN 32.2 pg (27.0-31.0); MEAN CORPUSCULAR VOLUME 97.5 fL (80.0-94.0); MEAN PLATELET VOLUME 13.7 fL (7.4-11.4); MONOCYTES % (AUTO) 7.1 %; NEUTROPHILS % (AUTO) 74.6 %; PLT - PLATELET COUNT 117 10^3/uL (130-450); RED BLOOD COUNT 2.39 10^6/uL (4.70-6.10); RED CELL DISTRIBUTION WIDTH 17.6 % (12.0-15.0); WHITE BLOOD COUNT 12.4 x10^3/uL (4.8-10.8)
[2024-06-15 14:56] LABS: SLIDE REVIEW? Indicated
[2024-06-15 15:04] LABS: INR 1.7 (0.8-1.2); PT - PROTHROMBIN TIME 17.9 secs (9.9-12.6)
[2024-06-15 15:09] LABS: ALBUMIN 3.5 g/dL (3.2-5.5); ALBUMIN/GLOBULIN RATIO 1.1 (1.0-2.2); BILIRUBIN,TOTAL 0.5 mg/dL (0.2-1.0); CALCIUM 8.8 mg/dL (8.5-10.3); CREATININE 0.7 mg/dL (0.6-1.3); POTASSIUM 3.9 mmol/L (3.5-4.5); TOTAL PROTEIN 6.7 g/dL (6.4-8.9)
[2024-06-15 15:30] LABS: ABNORMAL LYMPHS % (MANUAL) 1 %; BAND NEUTROPHILS % (MANUAL) 2 %; EOSINOPHILS # (MANUAL) 0.4 10^3/uL (0-0.7); LYMPHOCYTES % (MANUAL) 15 %; MYELOCYTES % (MANUAL) 1 %; NEUTROPHILS # (MANUAL) 9.7 10^3/uL (1.5-6.6); PROMYELOCYTES % (MANUAL) 2 %
[2024-06-15 15:33] LABS: DIFFERENTIAL COMMENT MANUAL DIFFERENTIAL; PLATELET ESTIMATE, MANUAL DECREASED (<130,000) (NORMAL); PLATELET MORPHOLOGY NORMAL APPEARANCE (NORMAL)
[2024-06-15] MEDS ORDERED: iohexoL-300 100 ML VIAL ONE (16:53)
--- NOTE | 2024-06-15 17:08 | ED Physician Documentation ---
History of Present Illness Stated complaint Stated Complaint: NOT FEELING WELL Chief complaint Chief Complaint: General History obtained from History obtained from: Patient History of Present Illness Timing: Prior to arrival Additonal information Additional information: Farrah is an 84 yo male presenting to the ED with not feeling well. He has history of stroke, afibb and is on xarelto. He recent was here in the hospital for anemia on 05/25 and was given multiple blood transfusions for his symptoms. 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 He had a repeat HgB today of 7 on arrival to the ED. patient has a history of aphasia and a majority of hx obtained from spouse who is present. Meds/Allgy Home Medications Ambulatory Orders Medication Instructions Recorded Confirmed ginkgo biloba 40 mg tablet 40 mg PO DAILY 05/28/24 06/15/24 acetaminophen 500 mg tablet 500 - 1,000 mg (1 - 2 x 500 mg) PO 05/29/24 06/15/24 BID PRN pain #60 tabs ascorbic acid (vitamin C) 500 mg 500 mg PO DAILY #30 tabs 05/29/24 06/15/24 tablet (C-500) baclofen 5 mg tablet 5 mg PO TID #90 tabs 05/29/24 06/15/24 docusate sodium 100 mg capsule 100 mg PO BID Constipation #60 caps 05/29/24 (Stool Softener) levetiracetam 1,000 mg tablet 1,000 mg PO QAM #30 tabs 05/29/24 06/15/24 levothyroxine 25 mcg tablet 25 mcg PO QDAC #30 tabs 05/29/24 06/15/24 aaqsxhsobszm-zkxxppoh-[id number] 1 tab PO DAILYWM #30 tabs 05/29/24 06/15/24 fumarate 19 mg-folic acid 400 mcg tablet (Therapeutic-M) polyethylene glycol 3350 17 17 g PO DAILY PRN constipation 05/29/24 06/15/24 gram/dose oral powder (Miralax) #238 grams sennosides 8.6 mg tablet (Senna 8.6 mg PO DAILY Constipation #60 05/29/24 06/15/24 Lax) tabs sertraline 50 mg tablet 50 mg PO DAILY #30 tabs 05/29/24 06/15/24 tamsulosin 0.4 mg capsule 0.4 mg PO QPM #30 caps 05/29/24 06/15/24 bisacodyl 10 mg rectal suppository 10 mg UT DAILY PRN constipation 06/16/24 06/16/24 (Gentle Laxative (bisacodyl)) ferrous sulfate 325 mg (65 mg 325 mg PO DAILY 06/16/24 06/16/24 iron) tablet (Feosol) mineral oil (Fleet Mineral Oil 118 ml UT DAILY PRN constipation 06/16/24 06/16/24 enema) pantoprazole 40 mg tablet,delayed 40 mg PO DAILY 06/16/24 06/16/24 release (Protonix) amoxicillin 875 mg-potassium 1 tab PO BID #6 tabs 06/17/24 clavulanate 125 mg tablet Allergies Allergies Allergy/AdvReac Type Severity Reaction Status Date / Time No Known Drug Allergies Allergy Verified 06/15/24 14:22 PFSH Active Problems All Active Problems (Updated 06/18/24 @ 00:01 by ) Colitis (Acute) Anemia (Acute) Atrial fibrillation (Acute) Generalized weakness (Acute) Medical History Medical History (Updated 06/18/24 @ 00:01 by ) GI bleed Internal and external bleeding hemorrhoids Gr3 internal, h/o thrombosed external History of ischemic colitis Muscle twitching Constipation Hypothyroid Prostate cancer Cerebral vascular accident Aphasia Antiphospholipid syndrome Surgical History Surgical History (Updated 06/16/24 @ 08:54 by Cathy Sun DO) History of colonoscopy (~05/25/24) ischemic sigmoid colitis; internal (Gr3) and external (thrombosed) hemorrhoids History of prostatectomy Social History Social History Smoking Status: Never smoker Second hand tobacco smoke exposure: No Do you dip or chew tobacco?: No Do you vape?: No Patient requests smoking cessation consult: No Initiate information on smoking cessation: No Relationship: Level: Assisted Home Mobility Equipment: Walker and Wheelchair Do you feel safe in your home environment?: Yes Suffered physical, verbal, emotional, or financial abuse?: No History of Abuse: No ETOH Use: Frequency: Occasional Substance Use: denies use POLST Patient has POLST: Yes Exam Constitutional normal general appearance HENMT normocephalic Eyes PERRL Respiratory breath sounds equal bilaterally Cardiovascular normal heart rate noted Gastrointestinal abdomen normal to inspection Genitourinary black stools on examination Skin pale nondiaphoretic Results Vitals Vitals: Oxygen O2 Source Room air Labs Labs: Microbiology 06/15/24 15:10 Occult Blood - Final Stool Laboratory Tests 06/15/24 06/15/24 06/15/24 14:45 14:45 14:45 WBC 12.4 H RBC 2.39 L Hgb 7.7 L Hct 23.3 L MCV 97.5 H MCH 32.2 H MCHC 33.0 RDW 17.6 H Plt Count 117 L MPV 13.7 H Neut # (Auto) Not Reportable Lymph # (Auto) Not Reportable Perkins # (Auto) Not Reportable Eos # (Auto) Not Reportable Baso # (Auto) Not Reportable Absolute Nucleated RBC Not Reportable Total Counted 100 Band Neuts % (Manual) 2 Abnorm Lymph % (Manual) 1 Myelocytes % 1 H Promyelocytes % 2 H Nucleated RBC % Not Reportable Neutrophils # (Manual) 9.7 H Lymphocytes # (Manual) 2.0 Monocytes # (Manual) 0.0 Eosinophils # (Manual) 0.4 Basophils # (Manual) 0.0 Differential Comment MANUAL DIFFERENTIAL Manual Slide Review Indicated WBC Morphology Platelet Estimate DECREASED (<130,000) Platelet Morphology NORMAL APPEARANCE RBC Morph Micro Appear 2+ ANISOCYTOSIS 1+ HYPOCHROMASIA 2+ MACROCYTOSIS PT INR Sodium Potassium Chloride Carbon Dioxide Anion Gap BUN Creatinine Estimated GFR (MDRD) Glucose Calcium Total Bilirubin AST ALT Alkaline Phosphatase Total Protein Albumin Globulin Albumin/Globulin Ratio Blood Type Antibody Screen Crossmatch IS Only 06/15/24 06/15/24 06/16/24 14:45 14:45 04:50 WBC 10.4 RBC 2.14 L Hgb 7.0 L* Hct 21.0 L MCV 98.1 H MCH 32.7 H MCHC 33.3 RDW 17.7 H Plt Count 101 L MPV Neut # (Auto) Not Reportable Lymph # (Auto) Not Reportable Perkins # (Auto) Not Reportable Eos # (Auto) Not Reportable Baso # (Auto) Not Reportable Absolute Nucleated RBC Not Reportable Total Counted 100 Band Neuts % (Manual) 0 Abnorm Lymph % (Manual) 0 Myelocytes % 3 H Promyelocytes % Nucleated RBC % Not Reportable Neutrophils # (Manual) 8.0 H Lymphocytes # (Manual) 1.8 Monocytes # (Manual) 0.2 Eosinophils # (Manual) 0.1 Basophils # (Manual) 0.0 Differential Comment MANUAL DIFFERENTIAL Manual Slide Review WBC Morphology NORMAL APPEARANCE Platelet Estimate DECREASED (<130,000) Platelet Morphology NORMAL APPEARANCE RBC Morph Micro Appear 1+ POLYCHROMASIA 1+ SCHISTOCYTES 1+ TEARDROP CELLS PT 17.9 H INR 1.7 H Sodium 133 L 135 Potassium 3.9 3.9 Chloride 101 102 Carbon Dioxide 28 26 Anion Gap 4.0 L 7.0 BUN 17 14 Creatinine 0.7 0.8 Estimated GFR (MDRD) 108 93 Glucose 124 H 111 H Calcium 8.8 8.6 Total Bilirubin 0.5 AST 16 ALT 22 Alkaline Phosphatase 68 Total Protein 6.7 Albumin 3.5 Globulin 3.2 Albumin/Globulin Ratio 1.1 Blood Type A POSITIVE Antibody Screen NEGATIVE Crossmatch IS Only See Detail PD Medical Decision Making ED course Complexity details: reviewed old records and reviewed results ED course: Patient is an 84 yo male presenting for not feelign well at his facility and Hgb of 7, he has been having concerns for GI bleed over the last month and received multiple transfusins in hospital he is still on xarelto for a history of APLD. Discussed case with Dr. Sun after repeat Hgb returned at 7.7 which appears stable. He is difficult to determine if he is symptomatic from his history given his history of aphasia. I discussed with hospitalist and CAROL Joseph who discussed with Dr. Sun as well who recommends obtaining a CTA given previous colonoscopy showed no signs of bleeding. CTA abdomen and pelvis: No source of GI bleed is seen. No findings of active extravasation can be seen. There is a hypertrophied vein seen looping through the right retroperitoneum. This is unchanged compared to 2022 and compared to the a benign, incidental finding. Patient will be admitted to the hospitalist after CTA returns negative, given continued blood loss his hgb will be monitored over night and consideration for stopping xarelto buttermaker helper to help with continued GI bleed and anemia. Patient agreeable and hospitalist Opal MEDINA accepts patient. Disucssed with Dr. Sun who will be available to hospitalist and was updated on reassuring results. Discharge Plan Discharge Patient Disposition: [facility] DC/Xfer Condition: Stable Clinical Impression: Generalized weakness, Acute GI bleeding, Anemia Interventions: ED Admission Assessment Last Done: 06/15/24 19:46
[2024-06-15] MEDS: iohexoL-300 100 ML VIAL IVP ONE (18:20)
--- NOTE | 2024-06-15 18:49 | CT Report ---
PROCEDURE: CT Angio Abdomen/Pelvis INDICATIONS: concern for GI bleed CONTRAST: 100 cc Omnipaque 300 TECHNIQUE: After the administration of intravenous contrast, 2.5 mm thick sections acquired from the diaphragm t o the symphysis. 10 mm maximum-intensity projection (MIP) reformats were then acquired. For radiati on dose reduction, the following was used: automated exposure control, adjustment of mA and/or kV ac cording to patient size. COMPARISON: 07/12/2021 FINDINGS: Image quality: Excellent. VESSELS: Aorta: The aorta demonstrates normal caliber, without stenosis, aneurysm, or dissection. Atheroscler otic calcification is seen. Mesenteric arteries: Celiac trunk, superior and inferior mesenteric arteries appear patent. Single bilateral renal arteries are seen, without focal narrowing. Right pelvic arteries: Within normal limits. Left pelvic arteries: Unremarkable. CHEST: Lung bases and heart: Likely dependent atelectasis can be seen at the lung bases. Moderate coronary c onstipation is seen. ABDOMEN: Liver: No solid mass. Gallbladder and biliary tree: Potential layering sludge can be seen within the gallbladder. No additi onal CT findings of cholecystitis are seen. Spleen: No splenomegaly. Pancreas: No pancreatic ductal dilation. Adrenals: No adrenal nodule. Kidneys and ureters: No hydronephrosis. No renal cystic lesion which requires follow up. No solid mas s. An IVC filter is seen. There is a hypertrophied vein seen looping through the right retroperitoneum. Bowel and peritoneum: On arterial phase imaging, no findings of active extravasation can be seen. No bowel distension. No pathologic free fluid. Lymph nodes: No central or retroperitoneal adenopathy. PELVIS Reproductive organs: Prostatectomy change is seen, with numerous postoperative clips. Bladder: No abnormal wall thickening, accounting for underdistension. Pelvic lymph nodes: No pelvic adenopathy by size criteria. Bones: No aggressive osseous abnormality. Remote anterior wedge deformities can be seen at T12 and L2. The L2 fracture is worse than in 202, h owever. Generalized degenerative changes are seen. Other: No significant ventral or inguinal hernia. IMPRESSION: No source of GI bleed is seen. No findings of active extravasation can be seen. There is a hypertrophied vein seen looping through the right retroperitoneum. This is unchanged rupert red to 2021 and compared to the a benign, incidental finding. Additional findings: Moderate coronary calcification Potential layering sludge within the gallbladder IVC filter Remote T12 and L2 anterior wedge deformities. Prostatectomy Reviewed by: Scot Gallardo MD on 06/15/2024 5:47 PM AKST Approved by: Scot Gallardo MD on 06/15/2024 5:47 PM AKST Station ID: [id number]
--- NOTE | 2024-06-15 19:30 | HISTORY & PHYSICAL EXAMINATION ---
Chief Complaint Chief Complaint Chief Complaint: not feeling well History of Present Illness Admitted From Admitted From:: [facility] History Obtained From Records Reviewed: oncology note 2019, last hospitalization. History of Present Illness HPI Comment/Other: This is an 84-year-old male who was hospitalized on our service earlier this month for a GI bleed. He comes in from the care facility today with complaints of not feeling well. He had a hemoglobin drawn earlier today that was significant for 7.0. He is generally aphasic but answers appropriately to yes and no questions. When I phrase my history questions that way I am able to ascertain that he has not felt well. He states that his appetite has not been affected and he denies abdominal pain. Meds/Allgy Home Medications Ambulatory Orders Medication Instructions Recorded Confirmed ginkgo biloba 40 mg tablet 40 mg PO DAILY 05/28/24 06/15/24 acetaminophen 500 mg tablet 500 - 1,000 mg (1 - 2 x 500 mg) PO 05/29/24 06/15/24 BID PRN pain #60 tabs ascorbic acid (vitamin C) 500 mg 500 mg PO DAILY #30 tabs 05/29/24 06/15/24 tablet (C-500) baclofen 5 mg tablet 5 mg PO TID #90 tabs 05/29/24 06/15/24 docusate sodium 100 mg capsule 100 mg PO BID Constipation #60 caps 05/29/24 06/15/24 (Stool Softener) levetiracetam 1,000 mg tablet 1,000 mg PO QAM #30 tabs 05/29/24 06/15/24 levothyroxine 25 mcg tablet 25 mcg PO QDAC #30 tabs 05/29/24 06/15/24 metoprolol succinate 25 mg 25 mg PO DAILY #30 tabs 05/29/24 06/15/24 tablet,extended release 24 hr leaehdnkdidv-higsjwvf-othj 1 tab PO DAILYWM #30 tabs 05/29/24 06/15/24 fumarate 19 mg-folic acid 400 mcg tablet (Therapeutic-M) polyethylene glycol 3350 17 17 g PO DAILY PRN constipation 05/29/24 06/15/24 gram/dose oral powder (Miralax) #238 grams rivaroxaban 20 mg tablet (Xarelto) 20 mg PO QDDINNER #30 tabs 05/29/24 06/15/24 sennosides 8.6 mg tablet (Senna 8.6 mg PO DAILY Constipation #60 05/29/24 06/15/24 Lax) tabs sertraline 50 mg tablet 50 mg PO DAILY #30 tabs 05/29/24 06/15/24 tamsulosin 0.4 mg capsule 0.4 mg PO QPM #30 caps 05/29/24 06/15/24 Allergies Allergies Allergy/AdvReac Type Severity Reaction Status Date / Time No Known Drug Allergies Allergy Verified 06/15/24 14:22 PFSH Active Problems All Active Problems (Updated 06/15/24 @ 19:28 by Melissa Piña PA-C) Anemia (Acute) Acute GI bleeding (Acute) GI bleed (Acute) Atrial fibrillation (Acute) Generalized weakness (Acute) Medical History Medical History (Updated 06/15/24 @ 19:28 by Melissa Piña PA-C) Muscle twitching Constipation Hypothyroid Prostate cancer Cerebral vascular accident Aphasia Antiphospholipid syndrome Surgical History Surgical History History of prostatectomy Social History Social History Smoking Status: Never smoker Second hand tobacco smoke exposure: No Do you dip or chew tobacco?: No Do you vape?: No Patient requests smoking cessation consult: No Initiate information on smoking cessation: No Relationship: Spouse Level: Assisted Home Mobility Equipment: Wheelchair Do you feel safe in your home environment?: Yes Suffered physical, verbal, emotional, or financial abuse?: No History of Abuse: No ETOH Use: Frequency: Occasional Substance Use: denies use POLST Patient has POLST: Yes POLST Status: Full Code Review of Systems Status of ROS: 10 or more systems reviewed and unremarkable except as noted in history and below, See HPI and other (Somewhat limited due to patient's difficulty with communication) Prior Level of Functionality: Chronic indwelling Brown for atonic bladder. Prior to recent admission to detention facility he was wheelchair-bound. Exam Constitutional normal general appearance Appears chronically ill HENMT normocephalic, hearing grossly normal bilaterally and external ears normal Eyes conjunctivae normal and no scleral icterus Neck/C-Spine visual inspection normal Lymph no lymphadenopathy noted Chest inspection of chest normal Respiratory breath sounds equal bilaterally and normal respiratory effort Cardiovascular normal heart rate noted and no murmur Gastrointestinal abdomen normal to inspection and abdomen soft to palpation As I palpate his abdomen I asked him if it hurts. When I palpate the left lower quadrant he states that it does hurt there is no guarding. Genitourinary Indwelling Brown Extremities normal to inspection and normal to palpation Neurology no movement abnormality noted Can only answer yes and no to questions. Psychiatry cooperative Good eye contact. Skin skin color normal Conclusion/Plan Problem List (1) GI bleed: Plan: Recent hospitalization for GI bleed from 05/25/2024 to 05/29/2024. Had a colonoscopy at that time which was significant for sigmoid colitis with evidence of recent bleed and internal hemorrhoids. At that time he was restarted on his Xarelto and did not have any evidence of any further GI bleeding, however this morning at the detention [facility] as CBC was sent showing a hemoglobin of 7 and a white blood cell count of 11.2. He was then sent to the emergency department this afternoon labs showed hemoglobin of 7.7 and a white blood cell count of 12.4. Rectal exam in the ED is heme positive.He has had an additional melanotic stool since being in the emergency department. As an outpatient he is on Protonix daily. He is also on iron for iron deficiency anemia related to his recent GI bleed. Sigmoid colon biopsies from colonoscopy 05/25/2024 show architecturally intact colonic mucosa with mild postinflammatory changes including erosion, histologically nonspecific but compatible with diverticular related changes there is no microscopic colitis on these biopsies. Discussed with ED PA and decision was made to admit this patient to observation status and trend his hemoglobin. Discussed with general surgery on-call Dr. Sun who will consult on this patient in the AM. Dr. Sun recommends antibiotics for colitis given his LLQ tenderness and elevated WBC Previous recommendations had been to resume Xarelto as best information at the time was that this patient had antiphospholipid antibody syndrome. 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 Further information has come to light. Reviewing the oncology note from 01/27/2019, the oncologist does not feel that the patient has antiphospholipid antibody syndrome. At that time, the patient did remain on Xarelto 20 mg daily. However, given that this is his second admission for GI bleed inside of a month it might be worthwhile to consider discontinuation of anticoagulation. (2) Atrial fibrillation: Plan: Unclear if the patient has a previous history of atrial fibrillation as I do not have much information. He does have a CVA history with hemiparesis and aphasia which is concerning. However given his GI bleeding I think we should discontinue the Xarelto. I will place him on aspirin 81 mg a day upon discharge as stroke prophylaxis. He is not currently on a statin as he lives pravastatin as an allergy. Atrial fibrillation was a new diagnosis at the time of his last admission to our knowledge. Echocardiogram was unavailable at that time. I will order an echo for this admission. (3) Cerebral vascular accident: Plan: He has aphasia and right-sided hemiparesis. He is not on a statin due to pravastatin allergy. He has previously been on Xarelto. As discussed above we will probably change this to aspirin 81 mg a day as there is a lower risk of GI bleeding associated with aspirin. (4) Hypothyroid: Plan: Continue home Synthroid dosing. He receives 25 mcg daily. (5) Prostate cancer: Plan: History of prostate cancer he has a chronic indwelling Brown. Will leave this in place (6) Antiphospholipid syndrome: Plan: Review of oncology note from January 2019 reveals the opinion of the license and permit specialist that this patient does not have antiphospholipid antibody. He does not have any acute DVT on the ultrasound done during his last hospital admission. He does have an IVC filter in place that has been there for some years as he has failed retrieval of this device. Plan I have spent 80 minutes in the care of this patient today. This includes time [id number], review and ordering of diagnostic imaging and laboratory studies and consultation with other providers.. Lab Results Lab results reviewed: Yes 06/15/24 14:45 06/15/24 14:45 Core Measures Anticipated LOS I expect patient to be DC'd or transferred within 96 hours.: Yes Issues Hospital Issues and Management Plan: Observation [facility] observe for further GI bleeding. Given that the patient had colitis on his last colonoscopy, and now has left lower quadrant abdominal tenderness which is mild and elevated white blood cell count and he has had a recurrence of GI bleeding I will treat this patient with antibiotics DVT/VTE - Prophylaxis VTE/DVT Device ordered at admit?: Yes
[2024-06-15] MEDS ORDERED: ONDANSETRON ODT 4 MG TABLET TL PRN (19:46)
[2024-06-15] MEDS ORDERED: ACETAMINOPHEN 325 MG TABLET PO PRN (19:46)
[2024-06-15] MEDS ORDERED: SODIUM CHLORIDE FLUSH 0.9% 10 ML SYRINGE IVP PRN (19:46)
[2024-06-15] MEDS ORDERED: polyethylene glycoL 3350 17 GM PACKET PO PRN (19:56)
[2024-06-15] MEDS: DOCUSATE SODIUM 100 MG CAPSULE PO SCH (20:25)
[2024-06-15] MEDS: levETIRAcetam 250 MG TABLET PO SCH (20:44)
[2024-06-15] MEDS: BACLOFEN 10 MG TABLET PO SCH (21:25)
[2024-06-15] MEDS: TAMSULOSIN 0.4 MG CAPSULE PO SCH (21:25)
[2024-06-15] MEDS: PIPERACILLIN/TAZOBACTAM 3.375 GM in SODIUM CHLORIDE 0.9% MINIBAG 100 ML IV ONE (21:26)
[2024-06-16] MEDS: PIPERACILLIN/TAZOBACTAM 3.375 GM in SODIUM CHLORIDE 0.9% MINIBAG 100 ML IV SCH (00:03)
[2024-06-16] MEDS: SODIUM CHLORIDE FLUSH 0.9% 10 ML SYRINGE IVP SCH (00:04)
[2024-06-16 05:14] LABS: BASOPHILS % (AUTO) 0.2 %; EOSINOPHILS % (AUTO) 0.6 %; LYMPHOCYTES % (AUTO) 18.5 %; MEAN CORPUSCULAR HEMOGLOBIN 32.7 pg (27.0-31.0); MEAN CORPUSCULAR HGB CONC 33.3 g/dL (32.0-36.0); MEAN CORPUSCULAR VOLUME 98.1 fL (80.0-94.0); PLT - PLATELET COUNT 101 10^3/uL (130-450); RED BLOOD COUNT 2.14 10^6/uL (4.70-6.10); RED CELL DISTRIBUTION WIDTH 17.7 % (12.0-15.0)
[2024-06-16 05:21] LABS: CALCIUM 8.6 mg/dL (8.5-10.3); CREATININE 0.8 mg/dL (0.6-1.3); POTASSIUM 3.9 mmol/L (3.5-4.5)
[2024-06-16 05:47] LABS: WHITE BLOOD COUNT 10.4 x10^3/uL (4.8-10.8)
[2024-06-16 05:49] LABS: ABNORMAL LYMPHS % (MANUAL) 0 %; BAND NEUTROPHILS % (MANUAL) 0 %
[2024-06-16 06:09] LABS: EOSINOPHILS # (MANUAL) 0.1 10^3/uL (0-0.7); LYMPHOCYTES # (MANUAL) 1.8 10^3/uL (1.5-3.5); LYMPHOCYTES % (MANUAL) 17 %; MONOCYTES # (MANUAL) 0.2 10^3/uL (0.0-1.0); MYELOCYTES % (MANUAL) 3 %
[2024-06-16 06:12] LABS: RBC MORPHOLOGY (MULTIPLE) 1+ TEARDROP CELLS (NORMAL)
[2024-06-16 06:13] LABS: DIFFERENTIAL COMMENT MANUAL DIFFERENTIAL; PLATELET ESTIMATE, MANUAL DECREASED (<130,000) (NORMAL); PLATELET MORPHOLOGY NORMAL APPEARANCE (NORMAL); WBC MORPHOLOGY (MULTIPLE) NORMAL APPEARANCE (NORMAL)
[2024-06-16] MEDS: LEVOTHYROXINE 25 MCG TABLET PO SCH (06:25)
--- NOTE | 2024-06-16 08:48 | CONSULTATION NOTE ---
History of Present Illness History of Present Illness HPI Comment/Other: 84M readmitted last night with hgb 7 and one reported melena in ED. He was admitted 05/25-10/15 with GIB. During that admission he underwent colonoscopy with Dr. White demonstrating internal (grade 3) and external (old thrombosis) hemorrhoids and ischemic sigmoid colitiswith stigmata of recent bleeding but no active bleed. Sigmoid biopsies showed inflammation but no microscopic colitis. That admission he as admitted with Hgb 3 and discharged with hgb 8. He is also on Xarelto for h/o both APS and Afib. He lives at [facility] and is aphasic 2/2 h/o CVA. His hgb this admission is 7.0. He had one melena in ED, none since. His reports no abnl BM at [facility], and that we was acting normally. The only thing prompting ED visit was the blood draws showing hgb 7. PFSH Active Problems All Active Problems (Updated 06/16/24 @ 08:54 by Cathy Sun DO) Anemia (Acute) Acute GI bleeding (Acute) GI bleed (Acute) Atrial fibrillation (Acute) Generalized weakness (Acute) Medical History Medical History (Updated 06/16/24 @ 08:54 by Cathy Sun DO) Internal and external bleeding hemorrhoids Gr3 internal, h/o thrombosed external History of ischemic colitis Constipation Hypothyroid Prostate cancer Cerebral vascular accident Aphasia Antiphospholipid syndrome Muscle twitching Surgical History Surgical History (Updated 06/16/24 @ 08:54 by Cathy Sun DO) History of colonoscopy (~05/25/24) ischemic sigmoid colitis; internal (Gr3) and external (thrombosed) hemorrhoids History of prostatectomy Social History Social History Smoking Status: Never smoker Second hand tobacco smoke exposure: No Do you dip or chew tobacco?: No Do you vape?: No Patient requests smoking cessation consult: No Initiate information on smoking cessation: No Relationship: Level: Assisted Home Mobility Equipment: Walker and Wheelchair Do you feel safe in your home environment?: Yes Suffered physical, verbal, emotional, or financial abuse?: No History of Abuse: No ETOH Use: Frequency: Occasional Substance Use: denies use POLST Patient has POLST: Yes POLST Status: Full Code Meds/Allgy Home Medications Ambulatory Orders Medication Instructions Recorded Confirmed ginkgo biloba 40 mg tablet 40 mg PO DAILY 05/28/24 06/15/24 acetaminophen 500 mg tablet 500 - 1,000 mg (1 - 2 x 500 mg) PO 05/29/24 06/15/24 BID PRN pain #60 tabs ascorbic acid (vitamin C) 500 mg 500 mg PO DAILY #30 tabs 05/29/24 06/15/24 tablet (C-500) baclofen 5 mg tablet 5 mg PO TID #90 tabs 05/29/24 06/15/24 docusate sodium 100 mg capsule 100 mg PO BID Constipation #60 caps 05/29/24 06/15/24 (Stool Softener) levetiracetam 1,000 mg tablet 1,000 mg PO QAM #30 tabs 05/29/24 06/15/24 levothyroxine 25 mcg tablet 25 mcg PO QDAC #30 tabs 05/29/24 06/15/24 metoprolol succinate 25 mg 25 mg PO DAILY #30 tabs 05/29/24 06/15/24 tablet,extended release 24 hr [id number]-[id number] 1 tab PO DAILYWM #30 tabs 05/29/24 06/15/24 fumarate 19 mg-folic acid 400 mcg tablet (Therapeutic-M) polyethylene glycol 3350 17 17 g PO DAILY PRN constipation 05/29/24 06/15/24 gram/dose oral powder (Miralax) #238 grams rivaroxaban 20 mg tablet (Xarelto) 20 mg PO QDDINNER #30 tabs 05/29/24 06/15/24 sennosides 8.6 mg tablet (Senna 8.6 mg PO DAILY Constipation #60 05/29/24 06/15/24 Lax) tabs sertraline 50 mg tablet 50 mg PO DAILY #30 tabs 05/29/24 06/15/24 tamsulosin 0.4 mg capsule 0.4 mg PO QPM #30 caps 05/29/24 06/15/24 bisacodyl 10 mg rectal suppository 10 mg NE DAILY PRN constipation 06/16/24 06/16/24 (Gentle Laxative (bisacodyl)) mineral oil (Fleet Mineral Oil 118 ml NE DAILY PRN constipation 06/16/24 06/16/24 enema) pantoprazole 40 mg tablet,delayed 40 mg PO DAILY 06/16/24 06/16/24 release (Protonix) Allergies Allergies Allergy/AdvReac Type Severity Reaction Status Date / Time No Known Drug Allergies Allergy Verified 06/15/24 14:22 Results Lab Results 06/16/24 04:50 06/16/24 04:50 Other Lab Results: Lab Results x24hrs 06/16/24 06/15/24 06/15/24 Range/Units 04:50 14:45 14:45 WBC 10.4 (4.8-10.8) x10^3/uL RBC 2.14 L (4.70-6.10) 10^6/uL Hgb 7.0 L* (14.0-18.0) g/dL Hct 21.0 L (42.0-52.0) % MCV 98.1 H (80.0-94.0) fL MCH 32.7 H (27.0-31.0) pg MCHC 33.3 (32.0-36.0) g/dL RDW 17.7 H (12.0-15.0) % Plt Count 101 L (130-450) 10^3/uL MPV (7.4-11.4) fL Neut # (Auto) Not Reportable Lymph # (Auto) Not Reportable [place] # (Auto) Not Reportable Eos # (Auto) Not Reportable Baso # (Auto) Not Reportable Absolute Nucleated RBC Not Reportable Total Counted 100 Band Neuts % (Manual) 0 (0 - 10) % Abnorm Lymph % (Manual) 0 % Myelocytes % 3 H ( - 0) % Promyelocytes % ( - 0) % Nucleated RBC % Not Reportable Neutrophils # (Manual) 8.0 H (1.5-6.6) 10^3/uL Lymphocytes # (Manual) 1.8 (1.5-3.5) 10^3/uL Monocytes # (Manual) 0.2 (0.0-1.0) 10^3/uL Eosinophils # (Manual) 0.1 (0-0.7) 10^3/uL Basophils # (Manual) 0.0 (0-0.1) 10^3/uL Differential Comment MANUAL DIFFERENTIAL Manual Slide Review WBC Morphology NORMAL APPEARANCE (NORMAL) Platelet Estimate DECREASED (<130,000) (NORMAL) Platelet Morphology NORMAL APPEARANCE (NORMAL) RBC Morph Micro Appear 1+ TEARDROP CELLS 1+ SCHISTOCYTES 1+ POLYCHROMASIA (NORMAL) PT 17.9 H (9.9-12.6) secs INR 1.7 H (0.8-1.2) Sodium 135 133 L (135-145) mmol/L Potassium 3.9 3.9 (3.5-4.5) mmol/L Chloride 102 101 (101-111) mmol/L Carbon Dioxide 26 28 (21-32) mmol/L Anion Gap 7.0 4.0 L (6-13) BUN 14 17 (6-20) mg/dL Creatinine 0.8 0.7 (0.6-1.3) mg/dL Estimated GFR (MDRD) 93 108 (>89) Glucose 111 H 124 H (74-104) mg/dL Calcium 8.6 8.8 (8.5-10.3) mg/dL Total Bilirubin 0.5 (0.2-1.0) mg/dL AST 16 (10-42) IU/L ALT 22 (10-60) IU/L Alkaline Phosphatase 68 (42-121) IU/L Total Protein 6.7 (6.4-8.9) g/dL Albumin 3.5 (3.2-5.5) g/dL Globulin 3.2 (2.1-4.2) g/dL Albumin/Globulin Ratio 1.1 (1.0-2.2) Blood Type A POSITIVE Antibody Screen NEGATIVE Crossmatch IS Only See Detail 06/15/24 06/15/24 06/15/24 Range/Units 14:45 14:45 14:45 WBC 12.4 H (4.8-10.8) x10^3/uL RBC 2.39 L (4.70-6.10) 10^6/uL Hgb 7.7 L (14.0-18.0) g/dL Hct 23.3 L (42.0-52.0) % MCV 97.5 H (80.0-94.0) fL MCH 32.2 H (27.0-31.0) pg MCHC 33.0 (32.0-36.0) g/dL RDW 17.6 H (12.0-15.0) % Plt Count 117 L (130-450) 10^3/uL MPV 13.7 H (7.4-11.4) fL Neut # (Auto) Not Reportable Lymph # (Auto) Not Reportable [place] # (Auto) Not Reportable Eos # (Auto) Not Reportable Baso # (Auto) Not Reportable Absolute Nucleated RBC Not Reportable Total Counted 100 Band Neuts % (Manual) 2 (0 - 10) % Abnorm Lymph % (Manual) 1 % Myelocytes % 1 H ( - 0) % Promyelocytes % 2 H ( - 0) % Nucleated RBC % Not Reportable Neutrophils # (Manual) 9.7 H (1.5-6.6) 10^3/uL Lymphocytes # (Manual) 2.0 (1.5-3.5) 10^3/uL Monocytes # (Manual) 0.0 (0.0-1.0) 10^3/uL Eosinophils # (Manual) 0.4 (0-0.7) 10^3/uL Basophils # (Manual) 0.0 (0-0.1) 10^3/uL Differential Comment MANUAL DIFFERENTIAL Manual Slide Review Indicated WBC Morphology (NORMAL) Platelet Estimate DECREASED (<130,000) (NORMAL) Platelet Morphology NORMAL APPEARANCE (NORMAL) RBC Morph Micro Appear 2+ MACROCYTOSIS 1+ HYPOCHROMASIA 2+ ANISOCYTOSIS (NORMAL) PT (9.9-12.6) secs INR (0.8-1.2) Sodium (135-145) mmol/L Potassium (3.5-4.5) mmol/L Chloride (101-111) mmol/L Carbon Dioxide (21-32) mmol/L Anion Gap (6-13) BUN (6-20) mg/dL Creatinine (0.6-1.3) mg/dL Estimated GFR (MDRD) (>89) Glucose (74-104) mg/dL Calcium (8.5-10.3) mg/dL Total Bilirubin (0.2-1.0) mg/dL AST (10-42) IU/L ALT (10-60) IU/L Alkaline Phosphatase (42-121) IU/L Total Protein (6.4-8.9) g/dL Albumin (3.2-5.5) g/dL Globulin (2.1-4.2) g/dL Albumin/Globulin Ratio (1.0-2.2) Blood Type Antibody Screen Crossmatch IS Only Diagnostic Imaging Results Diagnostic Imaging Results: positive Read contemporaneously Diagnostic Imaging Results Comments: 06/17/24 PROCEDURE: CT Angio Abdomen/Pelvis INDICATIONS: concern for GI bleed CONTRAST: 100 cc Omnipaque 300 TECHNIQUE: After the administration of intravenous contrast, 2.5 mm thick sections acquired from the diaphragm to the symphysis. 10 mm maximum-intensity projection (MIP) reformats were then acquired. For radiation dose reduction, the following was used: automated exposure control, adjustment of mA and/or kV according to patient size. COMPARISON: 07/12/2021 FINDINGS: Image quality: Excellent. VESSELS: Aorta: The aorta demonstrates normal caliber, without stenosis, aneurysm, or dissection. Atherosclerotic calcification is seen. Mesenteric arteries: Celiac trunk, superior and inferior mesenteric arteries appear patent. Single bilateral renal arteries are seen, without focal narrowing. Right pelvic arteries: Within normal limits. Left pelvic arteries: Unremarkable. CHEST: Lung bases and heart: Likely dependent atelectasis can be seen at the lung bases. Moderate coronary constipation is seen. ABDOMEN: Liver: No solid mass. Gallbladder and biliary tree: Potential layering sludge can be seen within the gallbladder. No additional CT findings of cholecystitis are seen. Spleen: No splenomegaly. Pancreas: No pancreatic ductal dilation. Adrenals: No adrenal nodule. Kidneys and ureters: No hydronephrosis. No renal cystic lesion which requires follow up. No solid mass. An IVC filter is seen. There is a hypertrophied vein seen looping through the right retroperitoneum. Bowel and peritoneum: On arterial phase imaging, no findings of active extravasation can be seen. No bowel distension. No pathologic free fluid. Lymph nodes: No central or retroperitoneal adenopathy. PELVIS Reproductive organs: Prostatectomy change is seen, with numerous postoperative clips. Bladder: No abnormal wall thickening, accounting for underdistension. Pelvic lymph nodes: No pelvic adenopathy by size criteria. Bones: No aggressive osseous abnormality. Remote anterior wedge deformities can be seen at T12 and L2. The L2 fracture is worse than in 202, however. Generalized degenerative changes are seen. Other: No significant ventral or inguinal hernia. IMPRESSION: No source of GI bleed is seen. No findings of active extravasation can be seen. There is a hypertrophied vein seen looping through the right retroperitoneum. This is unchanged compared to 202 and compared to the a benign, incidental finding. Additional findings: Moderate coronary calcification Potential layering sludge within the gallbladder IVC filter Remote T12 and L2 anterior wedge deformities. 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 Home diet and medications should be monitored and adjusted to prevent low flow states. No repeat colonoscopy indicated at this time Anticoagulation not required for DVT given IVC filter Recommend goals of care discussion regarding xarelto, balancing afib mgmt vs risk of repeat colonic bleeding with STEPHEN. May be best for him to come off anticoagulation. Care signed out to Dr. Mccoy. Surgery will follow peripherally. Cathy Sun DO FACS General Surgeon [facility] Review of Systems aphasic Exam Constitutional no apparent distress Respiratory normal respiratory effort Cardiovascular normal heart rate noted Gastrointestinal abdomen soft to palpation, nontender to palpation and nondistended
[2024-06-16] MEDS: MULTIVITAMIN W/MINERALS TABLET PO SCH (09:32)
[2024-06-16] MEDS: METOPROLOL SUCCINATE 25 MG TABLET PO SCH (09:33)
[2024-06-16] MEDS: SERTRALINE 50 MG TABLET PO SCH (09:33)
[2024-06-16] MEDS: levETIRAcetam 250 MG TABLET PO SCH (09:33)
[2024-06-16] MEDS: SENNA 8.6 MG TABLET PO SCH (09:33)
[2024-06-16] MEDS: PIPERACILLIN/TAZOBACTAM 3.375 GM in SODIUM CHLORIDE 0.9% MINIBAG 100 ML IV ONE (11:17)
--- NOTE | 2024-06-16 11:38 | PHARMACY PROGRESS NOTE ---
Best Possible Medication History Admit Date and Time: 06/15/241923 Home Medications Medication Instructions Recorded Confirmed Type ginkgo biloba 40 mg tablet 40 mg PO DAILY 05/28/24 06/15/24 History acetaminophen 500 mg tablet 500 - 1,000 mg (1 - 2 x 500 mg) PO 05/29/24 06/15/24 Rx BID PRN pain #60 tabs ascorbic acid (vitamin C) 500 mg 500 mg PO DAILY #30 tabs 05/29/24 06/15/24 Rx tablet (C-500) baclofen 5 mg tablet 5 mg PO TID #90 tabs 05/29/24 06/15/24 Rx docusate sodium 100 mg capsule 100 mg PO BID Constipation #60 caps 05/29/24 06/15/24 Rx (Stool Softener) levetiracetam 1,000 mg tablet 1,000 mg PO QAM #30 tabs 05/29/24 06/15/24 Rx levothyroxine 25 mcg tablet 25 mcg PO QDAC #30 tabs 05/29/24 06/15/24 Rx metoprolol succinate 25 mg 25 mg PO DAILY #30 tabs 05/29/24 06/15/24 Rx tablet,extended release 24 hr uzfddbuovlts-miceorwz-scej 1 tab PO DAILYWM #30 tabs 05/29/24 06/15/24 Rx fumarate 19 mg-folic acid 400 mcg tablet (Therapeutic-M) polyethylene glycol 3350 17 17 g PO DAILY PRN constipation 05/29/24 06/15/24 Rx gram/dose oral powder (Miralax) #238 grams rivaroxaban 20 mg tablet (Xarelto) 20 mg PO QDDINNER #30 tabs 05/29/24 06/15/24 Rx sennosides 8.6 mg tablet (Senna 8.6 mg PO DAILY Constipation #60 05/29/24 06/15/24 Rx Lax) tabs sertraline 50 mg tablet 50 mg PO DAILY #30 tabs 05/29/24 06/15/24 Rx tamsulosin 0.4 mg capsule 0.4 mg PO QPM #30 caps 05/29/24 06/15/24 Rx bisacodyl 10 mg rectal suppository 10 mg [place] DAILY PRN constipation 06/16/24 06/16/24 History (Gentle Laxative (bisacodyl)) mineral oil (Fleet Mineral Oil 118 ml [place] DAILY PRN constipation 06/16/24 06/16/24 History enema) pantoprazole 40 mg tablet,delayed 40 mg PO DAILY 06/16/24 06/16/24 History release (Protonix) Processed by: Pharmacy Medications reviewed in ED?: Yes Medication History completed: Yes Patient Interview: Completed Secondary Source(s): Spouse/Significant other [facility] Statement: As the person ultimately responsible for medication therapy, providers are able to order a medication from an existing home medication list in [facility] via the "Reconcile Routine" prior to Confirmation of that medication by intelligence support officer. Such practice is discouraged except when the physician, in their clinical judgment, deems that a medical need exists for a medication without regard to previous use.
--- NOTE | 2024-06-16 14:48 | PROVIDER PROGRESS NOTE ---
Subjective Prog Note Date Prog Note Date: 06/16/24 Prog Note Time: 14:45 Subjective Pt reports feeling: No change Subjective: Patient is an 84 year old male who was admitted from the ED last night for a non-specific complaint of not feeling well. He has a history of CVA and DVT, and possible anti-phospholipid syndrome for which he takes Xarelto. He is aphasic with right side kae-paresis. Patient was hospitalized earlier this month for a lower GI bleed and a hemoglobin of 3.6. His Xarelto was held until his hemoglobin was restored to 8, and he was then discharged home on his normal dose of Xarelto. When he presented to the ED on 06/15/24, he had a hemoglobin of 7.7 and an elevated WBC count. The ED nurse noted melena in patient's stool and he had a positive fecal occult blood test. He was admitted for observation so that we could trend his H&H. Patient's hemoglobin was 7.0 this morning and he received a unit of blood. His Tg was visiting with him in the afternoon and we were able to speak with her. She relayed that the patient had the CVA 10 years ago and that they had remodeled their home so that she could care for him there. The patient is normally able to transfer himself from his bed to a wheelchair and he is able to get around in his chair, including to the toilet. He has been at [facility] ([facility]) since being discharged from the hospital on 05/29/24. Current Medications Current Medications Current Medications: Current Medications Generic Name Dose Route Start Last Admin Trade Name Jessie PRN Reason Stop Dose Admin Acetaminophen 650 mg 06/15/24 19:46 Acetaminophen 325 Mg Tablet PO Q4HR PRN Pain 1 to 4, or Fever Baclofen 5 mg 06/15/24 22:00 06/16/24 14:10 Baclofen 10 Mg Tablet PO 5 mg TID FELICITA Administration Docusate Sodium 100 mg 06/15/24 21:00 06/16/24 09:32 Docusate Sodium 100 Mg Capsule PO 100 mg BID FELICITA Administration Piperacillin Sod/Tazobactam 100 mls @ 25 mls/hr 06/16/24 00:00 06/16/24 04:03 Sod 3.375 gm/ Sodium Chloride IV Infused Q8H FELICITA Infusion Levetiracetam 1,000 mg 06/16/24 09:00 06/16/24 09:33 Levetiracetam 250 Mg Tablet PO 1,000 mg DAILY FELICITA Administration Levothyroxine Sodium 25 mcg 06/16/24 07:00 06/16/24 06:25 Levothyroxine 25 Mcg Tablet PO 25 mcg QDAC FELICITA Administration Multivitamins/Minerals 1 tab 06/16/24 08:00 06/16/24 09:32 Multivitamin W/Minerals Tablet PO 1 tab DAILYWM FELICITA Administration Ondansetron HCl 4 mg 06/15/24 19:46 Ondansetron Odt 4 Mg Tablet TL Q6HR PRN Nausea / Vomiting Polyethylene Glycol 17 gm 06/15/24 19:56 Polyethylene Glycol 3350 17 Gm Packet PO DAILY PRN Constipation Senna 8.6 mg 06/16/24 09:00 06/16/24 09:33 Senna 8.6 Mg Tablet PO 8.6 mg DAILY FELICITA Administration Sertraline HCl 50 mg 06/16/24 09:00 06/16/24 09:33 Sertraline 50 Mg Tablet PO 50 mg DAILY FELICITA Administration Sodium Chloride 10 ml 06/15/24 19:46 Sodium Chloride Flush 0.9% 10 Ml Syringe IVP PRN PRN NEEDED PER PROVIDER ORDERS Sodium Chloride 10 ml 06/16/24 01:00 06/16/24 09:33 Sodium Chloride Flush 0.9% 10 Ml Syringe IVP 10 ml 0100,0900,1700 FELICITA Administration Tamsulosin HCl 0.4 mg 06/15/24 21:00 06/15/24 21:25 Tamsulosin 0.4 Mg Capsule PO 0.4 mg QPM FELICITA Administration Objective Vital Signs/Intake & Output Reviewed Vital Signs: Yes Vital Signs: Vital Signs x48h Temp Pulse Pulse Resp BP Pulse Ox O2 Flow Rate 06/16/24 14:34 36.5 C 75 18 113/61 95 06/16/24 12:38 36.6 C 69 18 107/61 93 06/16/24 10:40 36.7 C 82 18 122/70 96 2 06/16/24 07:59 36.8 C 82 18 115/67 96 2 06/16/24 07:43 36.7 C 88 18 136/70 H 95 2 06/16/24 07:24 36.7 C 88 22 136/70 H 95 2 Intake & Output: Intake & Output 06/13/24 06/14/24 06/15/24 06/16/24 23:59 23:59 23:59 23:59 Intake Total 200 / 200 300 / 300 Balance 200 / 200 300 / 300 Weight (kg) 80.5 kg Objective General Appearance: positive No acute distress Eyes Bilateral: positive Normal inspection ENT: positive ENT inspection nml Neck: positive Nml inspection Respiratory: positive Chest non-tender, No respiratory distress and Breath sounds nml Cardiovascular: positive Regular rate & rhythm Abdomen: positive Non-tender Skin: positive Color nml Extremities: positive Non-tender and Nml appearance Lab Results 06/16/24 04:50 06/16/24 04:50 Other Labs: Lab Results x24hrs 06/16/24 06/15/24 06/15/24 Range/Units 04:50 14:45 14:45 WBC 10.4 (4.8-10.8) x10^3/uL RBC 2.14 L (4.70-6.10) 10^6/uL Hgb 7.0 L* (14.0-18.0) g/dL Hct 21.0 L (42.0-52.0) % MCV 98.1 H (80.0-94.0) fL MCH 32.7 H (27.0-31.0) pg MCHC 33.3 (32.0-36.0) g/dL RDW 17.7 H (12.0-15.0) % Plt Count 101 L (130-450) 10^3/uL MPV (7.4-11.4) fL Neut # (Auto) Not Reportable Lymph # (Auto) Not Reportable Bladen # (Auto) Not Reportable Eos # (Auto) Not Reportable Baso # (Auto) Not Reportable Absolute Nucleated RBC Not Reportable Total Counted 100 Band Neuts % (Manual) 0 (0 - 10) % Abnorm Lymph % (Manual) 0 % Myelocytes % 3 H ( - 0) % Promyelocytes % ( - 0) % Nucleated RBC % Not Reportable Neutrophils # (Manual) 8.0 H (1.5-6.6) 10^3/uL Lymphocytes # (Manual) 1.8 (1.5-3.5) 10^3/uL Monocytes # (Manual) 0.2 (0.0-1.0) 10^3/uL Eosinophils # (Manual) 0.1 (0-0.7) 10^3/uL Basophils # (Manual) 0.0 (0-0.1) 10^3/uL Differential Comment MANUAL DIFFERENTIAL Manual Slide Review WBC Morphology NORMAL APPEARANCE (NORMAL) Platelet Estimate DECREASED (<130,000) (NORMAL) Platelet Morphology NORMAL APPEARANCE (NORMAL) RBC Morph Micro Appear 1+ TEARDROP CELLS 1+ SCHISTOCYTES 1+ POLYCHROMASIA (NORMAL) PT 17.9 H (9.9-12.6) secs INR 1.7 H (0.8-1.2) Sodium 135 133 L (135-145) mmol/L Potassium 3.9 3.9 (3.5-4.5) mmol/L Chloride 102 101 (101-111) mmol/L Carbon Dioxide 26 28 (21-32) mmol/L Anion Gap 7.0 4.0 L (6-13) BUN 14 17 (6-20) mg/dL Creatinine 0.8 0.7 (0.6-1.3) mg/dL Estimated GFR (MDRD) 93 108 (>89) Glucose 111 H 124 H (74-104) mg/dL Calcium 8.6 8.8 (8.5-10.3) mg/dL Total Bilirubin 0.5 (0.2-1.0) mg/dL AST 16 (10-42) IU/L ALT 22 (10-60) IU/L Alkaline Phosphatase 68 (42-121) IU/L Total Protein 6.7 (6.4-8.9) g/dL Albumin 3.5 (3.2-5.5) g/dL Globulin 3.2 (2.1-4.2) g/dL Albumin/Globulin Ratio 1.1 (1.0-2.2) Blood Type A POSITIVE Antibody Screen NEGATIVE Crossmatch IS Only See Detail 06/15/24 06/15/24 06/15/24 Range/Units 14:45 14:45 14:45 WBC 12.4 H (4.8-10.8) x10^3/uL RBC 2.39 L (4.70-6.10) 10^6/uL Hgb 7.7 L (14.0-18.0) g/dL Hct 23.3 L (42.0-52.0) % MCV 97.5 H (80.0-94.0) fL MCH 32.2 H (27.0-31.0) pg MCHC 33.0 (32.0-36.0) g/dL RDW 17.6 H (12.0-15.0) % Plt Count 117 L (130-450) 10^3/uL MPV 13.7 H (7.4-11.4) fL Neut # (Auto) Not Reportable Lymph # (Auto) Not Reportable Bladen # (Auto) Not Reportable Eos # (Auto) Not Reportable Baso # (Auto) Not Reportable Absolute Nucleated RBC Not Reportable Total Counted 100 Band Neuts % (Manual) 2 (0 - 10) % Abnorm Lymph % (Manual) 1 % Myelocytes % 1 H ( - 0) % Promyelocytes % 2 H ( - 0) % Nucleated RBC % Not Reportable Neutrophils # (Manual) 9.7 H (1.5-6.6) 10^3/uL Lymphocytes # (Manual) 2.0 (1.5-3.5) 10^3/uL Monocytes # (Manual) 0.0 (0.0-1.0) 10^3/uL Eosinophils # (Manual) 0.4 (0-0.7) 10^3/uL Basophils # (Manual) 0.0 (0-0.1) 10^3/uL Differential Comment MANUAL DIFFERENTIAL Manual Slide Review Indicated WBC Morphology (NORMAL) Platelet Estimate DECREASED (<130,000) (NORMAL) Platelet Morphology NORMAL APPEARANCE (NORMAL) RBC Morph Micro Appear 2+ MACROCYTOSIS 1+ HYPOCHROMASIA 2+ ANISOCYTOSIS (NORMAL) PT (9.9-12.6) secs INR (0.8-1.2) Sodium (135-145) mmol/L Potassium (3.5-4.5) mmol/L Chloride (101-111) mmol/L Carbon Dioxide (21-32) mmol/L Anion Gap (6-13) BUN (6-20) mg/dL Creatinine (0.6-1.3) mg/dL Estimated GFR (MDRD) (>89) Glucose (74-104) mg/dL Calcium (8.5-10.3) mg/dL Total Bilirubin (0.2-1.0) mg/dL AST (10-42) IU/L ALT (10-60) IU/L Alkaline Phosphatase (42-121) IU/L Total Protein (6.4-8.9) g/dL Albumin (3.2-5.5) g/dL Globulin (2.1-4.2) g/dL Albumin/Globulin Ratio (1.0-2.2) Blood Type Antibody Screen Crossmatch IS Only Assessment/Plan Problem List (1) GI bleed: Impression: Recent hospitalization for GI bleed from 05/25/2024 to 05/29/2024. Had a colonoscopy at that time which was significant for sigmoid colitis with evidence of recent bleed and internal hemorrhoids. Sigmoid colon biopsies from colonoscopy 05/25/2024 show architecturally intact colonic mucosa with mild postinflammatory changes including erosion, histologically nonspecific but compatible with diverticular related changes there is no microscopic colitis on these biopsies. Patient was started on antibiotics for colitis per Dr Sun's recommendation, and his WBC count has returned to normal. Will continue the antibiotics for a total of 5 days. He received a unit of blood this morning, we will continue to trend his hemoglobin and hematocrit. His bowel movement this morning was normal, without blood. Due to this being the second episode of GI bleeding that has brought the patient to the hospital, and the new information from the 01/27/19 oncology note regarding the opinion that the patient does not have antiphospholipid syndrome, we made the decision to discontinue his Xarelto. We have considered the increased risk of clotting that this brings and the possibility of another CVA or DVT, and given his GI bleeding, we feel discontinuing Xarelto is the best course of action. We are still considering aspirin 81 mg daily as stroke prophylaxis upon discharge. We discussed this case with general surgery who stated that the patient's colonoscopy showed ischemic colitis, possibly due to low blood flow to the area. His CTA was normal, however he may have some microvascular disease. His blood pressures have been trending normal on metoprolol but the patient may benefit from slightly increased pressures helping to perfuse his colon. We will reduce patient's metoprolol from 25 mg to 6.25 twice daily. (2) Atrial fibrillation: Impression: Atrial fibrillation was a new diagnosis at the time of his last admission. An echocardiogram has been ordered and will hopefully be completed during this hospital stay. He is not currently on a statin as he listed an allergy to pravastatin on his SNF paperwork.
--- NOTE | 2024-06-16 19:36 | ADVANCE CARE PLANNING NOTE ---
Advance Care Planning Planning Encounter Date: 06/16/24 Purpose: Affirm POLST Parties in Attendance: Tg, CAROL Student Opal Bergman, Opal Tony PA-C Decisional Capacity of the Patient: aphasia, unable to effectively communicate. Patient was not present at the time of this discussion. His who is his surrogate decision-maker does not want him to be present at this discussion. Diagnosis for Encounter (1) GI bleed: (2) Atrial fibrillation: Encounter Subjective/Patient's Story: Rickey had a stroke on October 22, 2014. He had an 8-month stay in rehab after that but his was able to have their home remodeled such that he has been able to live there until the end of April/beginning of May when he got sick. He is able to be wheelchair dependent get himself out of bed to the wheelchair with minimal assistance toilet himself and needs some help with hygiene but his is able to provide most of what he needs. He and his have a very quality relationship. He is an upbeat person who always looks on the bright side. They are able to communicate well they enjoy playing cribbage together and spend many hours enjoying each other's company. Immediately after his stroke he had a POLST that said DNR selective treatment. His does not feel that this is appropriate because of his current quality of life. She understands that a catastrophic medical event could indeed greatly decrease his quality of life, however at this time she would like him to remain full code. She says that when she gets down and sad about things, Rickey is the one who provides morale and encouragement. She says that currently he has quality of life but "I will let him go if it is terrible" Objective/Medical Story: Medically it has been a rough month for time. He was hospitalized at the beginning of the month for an acute GI bleed. He had a colonoscopy at the time. There was no evidence of active bleeding at that time. Due to the lack of active bleeding and the stability of the patient he was placed back on his blood thinners and discharged to long term facility to get stronger after this GI bleed. He was returned to us for decreased hemoglobin. The long term facility had the impression that the patient was not feeling well. The disagrees with that and states that he had been doing well earlier in the day when she had seen him. He did have Hemoccult positive stool at the time of his admission but has had several nonmelanotic bowel movements since being admitted here. He is gotten 1 unit of blood. On careful consideration and review of the records we have decided that use of anticoagulants in this patient is causing more harm than good given that he has been hospitalized twice in the last month for decreased hemoglobin due to GI bleeding. Goals of Care: Full code full care Plan: He will return to long term facility off of anticoagulation. His firmly believes that she would like to continue with full treatment with regards to any catastrophic medical events. Code Status: Attempt Resuscitation Time spent on advance care plannin minutes
[2024-06-17 05:55] LABS: BASOPHILS % (AUTO) 0.2 %; EOSINOPHILS % (AUTO) 1.1 %; LYMPHOCYTES % (AUTO) 22.1 %; MONOCYTES % (AUTO) 10.1 %; NEUTROPHILS % (AUTO) 63.7 %
[2024-06-17 06:11] LABS: CALCIUM 8.1 mg/dL (8.5-10.3); CREATININE 0.7 mg/dL (0.6-1.3); POTASSIUM 3.7 mmol/L (3.5-4.5)
[2024-06-17 06:22] LABS: HCT - HEMATOCRIT 25.6 % (42.0-52.0); HGB - HEMOGLOBIN 8.4 g/dL (14.0-18.0); MEAN CORPUSCULAR HEMOGLOBIN 31.2 pg (27.0-31.0); MEAN CORPUSCULAR VOLUME 95.2 fL (80.0-94.0); MEAN PLATELET VOLUME 14.3 fL (7.4-11.4); RED BLOOD COUNT 2.69 10^6/uL (4.70-6.10); WHITE BLOOD COUNT 8.8 x10^3/uL (4.8-10.8)
[2024-06-17 06:23] LABS: ABNORMAL LYMPHS % (MANUAL) 0 %; BAND NEUTROPHILS % (MANUAL) 0 %; MEAN CORPUSCULAR HGB CONC 32.8 g/dL (32.0-36.0); PLT - PLATELET COUNT 79 10^3/uL (130-450); RED CELL DISTRIBUTION WIDTH 18.9 % (12.0-15.0)
[2024-06-17 06:46] LABS: EOSINOPHILS # (MANUAL) 0.4 10^3/uL (0-0.7); LYMPHOCYTES # (MANUAL) 2.3 10^3/uL (1.5-3.5); LYMPHOCYTES % (MANUAL) 26 %; MONOCYTES # (MANUAL) 0.4 10^3/uL (0.0-1.0); NEUTROPHILS # (MANUAL) 5.7 10^3/uL (1.5-6.6); PLATELET ESTIMATE, MANUAL DECREASED (<130,000) (NORMAL); PLATELET MORPHOLOGY NORMAL APPEARANCE (NORMAL); RBC MORPHOLOGY (MULTIPLE) NORMAL APPEARANCE (NORMAL); WBC MORPHOLOGY (MULTIPLE) NORMAL APPEARANCE (NORMAL)
[2024-06-17 06:47] LABS: DIFFERENTIAL COMMENT MANUAL DIFFERENTIAL
--- NOTE | 2024-06-17 12:30 | Discharge Summary ---
Discharge Summary Admit Date: 06/15/24 Discharge Date: 06/17/24 Discharging Provider: Opal Tony PA-C Primary Care Provider: Tiesha Code Status: Attempt Resuscitation DIAGNOSES Discharge Diagnoses with Status of Each Condition: Acute Anemia, resolving GI Bleed, resolved S/p CVA in 2015, with chronic aphasia- able to accurately respond to "yes" "no" questions recent diagnosis of atrial fibrillation, rate controlled, not on anticoagulation d/t GI Bleed. history of DVT, antiphospholipid antibody syndrome has been ruled out. HPI History of Present Illness: This is an 84-year-old male who was hospitalized on our service earlier this month for a GI bleed. He comes in from the care facility today with complaints of not feeling well. He had a hemoglobin drawn earlier today that was significant for 7.0. He is generally aphasic but answers appropriately to yes and no questions. When I phrase my history questions that way I am able to ascertain that he has not felt well. He states that his appetite has not been affected and he denies abdominal pain. CONSULTS | PROCEDURES Consultations: General surgery Procedures: CTA abdomen and pelvis- no GI bleeding. All vessels are patent HOSPITAL COURSE Hospital Course: 84-year-old male who presented to the emergency department with decreased hemoglobin and melanotic stools. Was Hemoccult positive from below on exam. He was on anticoagulation therapy for history of DVT, possible antiphospholipid antibody syndrome and more recent episodes of atrial fibrillation in the setting of his recent hospitalization for anemia during which he received a colonoscopy. Surgery was consulted, and Dr. Sun was able to review the results of the recent colonoscopy to include the pathology report. She is of the opinion that this patient has chronic nonocclusive sigmoid ischemic colitis probably due to a low flow/dehydrated/hypotensive state.He was admitted and transfused 1 unit of packed red blood cells. His hemoglobin responded appropriately and did not drop. He did not have any additional episodes of melanotic stools after leaving the emergency department. His vital signs remained stable he was normotensive without tachycardia. I had a long discussion with his regarding advance care planning goals of care and the current situation with his anticoagulation, sigmoid, colitis, anemia, atrial fibrillation. We decided that the best choice would be to discontinue anticoagulation in this patient due to his hospitalization twice inside of 1 month for GI bleeding. Further evaluation of his vital signs show that he did not have any tachycardia and his blood pressures were a bit on the low side on the metoprolol. Metoprolol was discontinued and this remained the case. He did not have any tachycardia therefore we will discontinue his metoprolol. The patient should stay well hydrated to avoid low flow state which could potentially result in ischemic colitis He was discharged to SNF to continue his rehab course in stable condition on hospital day 3. ALLERGIES Allergies Allergy/AdvReac Type Severity Reaction Status Date / Time No Known Drug Allergies Allergy Verified 06/15/24 14:22 MEDICATIONS Ambulatory Orders Medication Instructions Recorded Confirmed ginkgo biloba 40 mg tablet 40 mg PO DAILY 05/28/24 06/15/24 acetaminophen 500 mg tablet 500 - 1,000 mg (1 - 2 x 500 mg) PO 05/29/24 06/15/24 BID PRN pain #60 tabs ascorbic acid (vitamin C) 500 mg 500 mg PO DAILY #30 tabs 05/29/24 06/15/24 tablet (C-500) baclofen 5 mg tablet 5 mg PO TID #90 tabs 05/29/24 06/15/24 docusate sodium 100 mg capsule 100 mg PO BID Constipation #60 caps 05/29/24 06/15/24 (Stool Softener) levetiracetam 1,000 mg tablet 1,000 mg PO QAM #30 tabs 05/29/24 06/15/24 levothyroxine 25 mcg tablet 25 mcg PO QDAC #30 tabs 05/29/24 06/15/24 [id number] 1 tab PO DAILYWM #30 tabs 05/29/24 06/15/24 fumarate 19 mg-folic acid 400 mcg tablet (Therapeutic-M) polyethylene glycol 3350 17 17 g PO DAILY PRN constipation 05/29/24 06/15/24 gram/dose oral powder (Miralax) #238 grams sennosides 8.6 mg tablet (Senna 8.6 mg PO DAILY Constipation #60 05/29/24 06/15/24 Lax) tabs sertraline 50 mg tablet 50 mg PO DAILY #30 tabs 05/29/24 06/15/24 tamsulosin 0.4 mg capsule 0.4 mg PO QPM #30 caps 05/29/24 06/15/24 bisacodyl 10 mg rectal suppository 10 mg MN DAILY PRN constipation 06/16/24 06/16/24 (Gentle Laxative (bisacodyl)) ferrous sulfate 325 mg (65 mg 325 mg PO DAILY 06/16/24 06/16/24 iron) tablet (Feosol) mineral oil (Fleet Mineral Oil 118 ml MN DAILY PRN constipation 06/16/24 06/16/24 enema) pantoprazole 40 mg tablet,delayed 40 mg PO DAILY 06/16/24 06/16/24 release (Protonix) amoxicillin 875 mg-potassium 1 tab PO BID #6 tabs 06/17/24 clavulanate 125 mg tablet PHYSICAL EXAM AT DISCHARGE Physical Exam Other/Comments: General Appearance: positive No acute distress Eyes Bilateral: positive Normal inspection ENT: positive ENT inspection nml Neck: positive Nml inspection Respiratory: positive Chest non-tender, No respiratory distress and Breath sounds nml Cardiovascular: positive Regular rate & rhythm Abdomen: positive Non-tender Skin: positive Color nml Extremities: positive Non-tender and Nml appearance LABS 06/17/24 05:47 06/17/24 05:47 FOLLOW UP Follow Up: As indicated, no need for surgery followup. recheck CBC in one week or as needed for symptoms/melena TIME SPENT Time Spent in Discharge (Minutes): 45 Discharge Plan Discharge Patient Disposition: [facility] DC/Xfer Condition: Stable Prescriptions: New amoxicillin-pot clavulanate 875-125 mg tablet 1 tab PO BID Qty: 6 0RF Continued ginkgo biloba 40 mg tablet 40 mg PO DAILY Rx Instructions: give with meal/snack sertraline 50 mg Tablet 50 mg PO DAILY Qty: 30 0RF Therapeutic-M 19 mg iron- 400 mcg Tablet 1 tab PO DAILYWM Qty: 30 0RF sennosides [Senna Lax] 8.6 MG tablet 8.6 mg PO DAILY Qty: 60 0RF acetaminophen 500 mg tablet 500 - 1,000 mg PO BID PRN (Reason: pain) Qty: 60 0RF levothyroxine 25 mcg tablet 25 mcg PO QDAC Qty: 30 0RF Patient Comments: take 1 tablet by mouth once daily ascorbic acid (vitamin C) [C-500] 500 mg tablet 500 mg PO DAILY Qty: 30 0RF tamsulosin 0.4 MG capsule 0.4 mg PO QPM Qty: 30 0RF docusate sodium [Stool Softener] 100 MG capsule 100 mg PO BID Qty: 60 0RF polyethylene glycol 3350 [Miralax] 17 gram/dose powder 17 g PO DAILY PRN (Reason: constipation) Qty: 238 0RF levetiracetam 1,000 MG tablet 1,000 mg PO QAM Qty: 30 0RF baclofen 5 mg tablet 5 mg PO TID Qty: 90 0RF bisacodyl [Gentle Laxative (bisacodyl)] 10 mg suppository 10 mg MN DAILY PRN (Reason: constipation) mineral oil [Fleet Mineral Oil] Enema 118 ml MN DAILY PRN (Reason: constipation) Patient Comments: Insert 1 unit rectally as needed for day 6 without a bowel movement. If not effective contact the MD immediately Rx Instructions: discard any unused portion pantoprazole [Protonix] 40 mg tablet,delayed release (DR/EC) 40 mg PO DAILY ferrous sulfate [Feosol] 325 mg (65 mg iron) tablet 325 mg PO DAILY Discontinued metoprolol succinate 25 mg tablet extended release 24 hr 25 mg PO DAILY Qty: 30 0RF Patient Comments: take 1 tablet by mouth once daily Xarelto 20 MG tablet 20 mg PO QDDINNER Qty: 30 0RF Patient Comments: 11/27/16 RF #30 x 11 NS/MD. 11/03/15 New RX. #30 RF x 12. MC/ds Activity Restrictions: Activity as Tolerated Diet: Regular Health Concerns: 84-year-old male who presented to the emergency department with decreased hemoglobin and melanotic stools. Was Hemoccult positive from below on exam. He was on anticoagulation therapy for history of DVT, possible antiphospholipid antibody syndrome and more recent episodes of atrial fibrillation in the setting of his recent hospitalization for anemia during which he received a colonoscopy. Surgery was consulted, and Dr. Sun was able to review the results of the recent colonoscopy to include the pathology report. She is of the opinion that this patient has chronic nonocclusive sigmoid ischemic colitis probably due to a low flow/dehydrated/hypotensive state.He was admitted and transfused 1 unit of packed red blood cells. His hemoglobin responded appropriately and did not drop. He did not have any additional episodes of melanotic stools after leaving the emergency department. His vital signs remained stable he was normotensive without tachycardia. I had a long discussion with his regarding advance care planning goals of care and the current situation with his anticoagulation, sigmoid, colitis, anemia, atrial fibrillation. We decided that the best choice would be to discontinue anticoagulation in this patient due to his hospitalization twice inside of 1 month for GI bleeding. Further evaluation of his vital signs show that he did not have any tachycardia and his blood pressures were a bit on the low side on the metoprolol. Metoprolol was discontinued and this remained the case. He did not have any tachycardia therefore we will discontinue his metoprolol. The patient should stay well hydrated to avoid low flow state which could potentially result in ischemic colitis. I am treating him with 5 d Augmentin for colitis. He was discharged to SNF to continue his rehab course in stable condition on hospital day 3. Care Plan Goals: return to living with your semi independently Print Language: Cuban Patient Instructions: Anemia Stand Alone Forms: SNF Discharge
[2024-06-17 12:38] VITALS: BP 123/74; TEMP 98.1; O2SAT 95
== END 2024-06-17 14:15 | DRG 812 ==
LOC: ED 14:13 → MS2 14:13
PROVIDERS: ADMIT Physician Assistant Medical; ATTEND Physician Assistant Medical
DX: I69.351 Hemiplegia and hemiparesis following cerebral infarction affecting right dominant side; E03.9 Hypothyroidism, unspecified; I10 Essential (primary) hypertension; D62 Acute posthemorrhagic anemia; K64.8 Other hemorrhoids; Z85.46 Personal history of malignant neoplasm of prostate; K55.1 Chronic vascular disorders of intestine; I48.91 Unspecified atrial fibrillation; Z79.01 Long term (current) use of anticoagulants; N31.2 Flaccid neuropathic bladder, not elsewhere classified; K92.2 Gastrointestinal hemorrhage, unspecified; R53.1 Weakness; K64.4 Residual hemorrhoidal skin tags; Z99.3 Dependence on wheelchair; I69.320 Aphasia following cerebral infarction; Z86.718 Personal history of other venous thrombosis and embolism